=== PATIENT | female | born 1955 | race Caucasian/White ===

== ENCOUNTER 2017-07-25 12:24 | Emergency (ER) | payer BC, OTHER ==
[~2017-07-25] VITALS: Ht 172.7 cm; Wt 67.0 kg
[~2017-07-25 12:24] MED LIST: PROG1CAP PO; [UNRECOGNIZED DRUG - CODE] PO
[2017-07-25 12:31] VITALS: TEMP 36.7; Ht 172.7 cm; Wt 67.0 kg
[2017-07-25] MEDS ORDERED: SODIUM CHLORIDE 0.9% 1000ML 1,000 ML IV STA ×2 (14:22→19:39)
[2017-07-25] MEDS ORDERED: ALBUT/IPRATROP 3MG/0.5MG NEB 3 ML VIAL INH STA (14:22)
[2017-07-25] MEDS ORDERED: OPTIRAY 320 IV PRN (14:45)
--- NOTE | 2017-07-25 14:47 | DIAGNOSTIC IMAGING REPORT ---
CHEST ONE VIEW PORTABLE HISTORY: Atypical CHEST PAIN COMPARISON: Chest 04/19/2013. FINDINGS: The lungs are clear. Cardiac silhouette is normal in size. No pleural effusions. No pneumothorax. IMPRESSION: No acute process. Electronically signed by: Brigido Dumas M.D. 07/25/2017 2:45 PM Dictated Date/Time: 07/25/2017 2:43 PM
[2017-07-25 14:48] LABS: BASO % 0.5 %; BASO ABS # 0.03 K/uL (0-0.2); EOS % 3.9 %; EOS ABS # 0.22 K/uL (0-0.5); HEMATOCRIT 41.6 % (37-47); HEMOGLOBIN 14.5 g/dL (12.0-16.0); IG# 0.01 K/uL (0.00-0.02); LYMPH % 34.4 %; LYMPH ABS # 1.92 K/uL (1.2-3.4); MEAN CELL VOLUME 85.1 fL (80-100); MEAN CORPUSCULAR HEMOGLOBIN 29.7 pg (25-34); MEAN CORPUSCULAR HGB CONC 34.9 g/dl (32-36); MEAN PLATELET VOLUME 9.1 fL (7.4-10.4); MONO % 7.2 %; NEUT % 53.8 %; PLATELET COUNT 248 K/uL (130-400); RED CELL DISTRIBUTION WIDTH CV 12.9 % (11.5-14.5); WHITE BLOOD COUNT 5.58 K/uL (4.8-10.8)
[2017-07-25 14:58] LABS: ALT/SGPT 26 U/L (12-78); BLOOD UREA NITROGEN 11 mg/dl (7-18); CALCIUM 9.3 mg/dl (8.5-10.1); CARBON DIOXIDE 26 mmol/L (21-32); CREATININE 0.64 mg/dl (0.60-1.20); GLUCOSE 77 mg/dl (70-99); LIPASE 258 U/L (73-393); POTASSIUM 3.7 mmol/L (3.5-5.1); SODIUM 137 mmol/L (136-145)
[2017-07-25 15:03] LABS: ALKALINE PHOSPHATASE 75 U/L (45-117); AST/SGOT 19 U/L (15-37); TOTAL PROTEIN 8.1 gm/dl (6.4-8.2)
[2017-07-25] MEDS ORDERED: [UNRECOGNIZED DRUG - CODE] PO (15:12)
[2017-07-25 15:35] LABS: INFLUENZA B ANTIGEN Neg for Influ B (NEG)
--- NOTE | 2017-07-25 16:52 | DIAGNOSTIC IMAGING REPORT ---
HEAD CT NONCONTRAST CT DOSE: 537.48 mGy.cm HISTORY: confusion TECHNIQUE: Multiaxial CT images of the head were performed without the use of intravenous contrast. Automated exposure control was utilized for this study. A dose lowering technique was utilized adhering to the principles of ALARA. Comparison: Head CTA 05/08/2014. Findings: The paranasal sinuses and mastoid air cells are clear. The calvarium and skull base are intact. The ventricles and sulci are within normal limits. There is no mass, hematoma, midline shift, or acute infarct. Impression: No acute intracranial abnormality. Electronically signed by: Brigido Dumas M.D. 07/25/2017 4:51 PM Dictated Date/Time: 07/25/2017 4:47 PM
--- NOTE | 2017-07-25 20:05 | DIAGNOSTIC IMAGING REPORT ---
CT ANGIOGRAPHY OF THE CHEST, PULMONARY EMBOLUS PROTOCOL CLINICAL HISTORY: Chest pain. Shortness of breath. COMPARISON STUDY: Chest radiograph April 19, 2013 and 2017. TECHNIQUE: Following IV administration of 93 mL of Optiray-320, helical axial images of the chest were obtained utilizing the pulmonary embolus protocol. Maximal intensity projections and sagittal and coronal reformats were viewed on an independent 3D workstation. IV contrast was administered without complication. A dose lowering technique was utilized adhering to the principles of ALARA. CT DOSE: 210.31 mGy.cm FINDINGS: No pulmonary emboli are identified. There is no evidence of thoracic aortic dissection. The size of the heart is normal. There is no pericardial effusion. No enlarged axillary, mediastinal or hilar lymph nodes. Central airways are patent. There is no consolidation to suggest pneumonia. There is no pneumothorax or pleural effusion. Mild right middle lobe and lingular opacity represents atelectasis. Bony thorax is unremarkable. A 1 cm left hepatic lobe cyst is noted. IMPRESSION: 1. No pulmonary emboli identified. 2. No acute intrathoracic findings. Electronically signed by: Pool Berry M.D. 07/25/2017 7:17 PM Dictated Date/Time: 07/25/2017 7:11 PM
--- NOTE | 2017-07-25 20:27 | EMERGENCY ROOM VISIT NOTE ---
History Report prepared by Breanne: Meghan Kelsey Under the Supervision of: Dr. Fabián Cespedes M.D. First contact with patient: 14:19 Chief Complaint: CHEST PAIN Stated Complaint: CHEST PRESSURE, BREATHING DIFFICULTY Nursing Triage Summary: triage note: pt reports she has had a chronic cough for the past 1.5 years. pt reports intermittent chest pain also for the past 1.5 years. pt reports difficulty breathing for the past several days "and i started to have an unusual feeling my chest." pt reports today at work she had episode of feeling dizzy and disoriented. History of Present Illness The patient is a 62 year old female who presents to the Emergency Room with complaints of persistent chest pain starting a few weeks ago. She describes the pain as a pressure located in the center of her chest. She has had this pressure before, but it has worsened since starting an antibiotic several weeks ago for her lung disease. Last night, she had an episode of palpitations. She decided to come in today because she started feeling disoriented. She notes feeling anxious. Her notes that she is speaking slowly. She has had SOB with her chest pain. Her chest pain goes through to her back. She has had a chronic cough for 1.5 years. Her cough has improved since starting the antibiotics. She has a history of leukemia. Source of History: patient, spouse/significant other Onset: few weeks ago Position: chest Quality: pressure Timing: other (persistent) Associated Symptoms: + SOB, + back pain Note: Pt reports palpitations, feeling disoriented. Review of Systems See HPI for pertinent positives and negatives. A total of ten systems were reviewed and were otherwise negative. Past Medical & Surgical Medical Problems: (1) Hypertension Family History Hypertension Social History Smoking Status: Never Smoker Alcohol Use: none Drug Use: none Marital Status: Housing Status: lives with family Occupation Status: employed Current/Historical Medications Scheduled Liothyronine (Bulk) (Liothyronine), 65 MCG PO QAM Progesterone Micronized (Progesterone), 50 MG PO BID Allergies Coded Allergies: Penicillins (Verified Allergy, Severe, SWELLING, 07/25/17) Ciprofloxacin (Verified Allergy, Intermediate, CHEST TIGHTNESS, 07/25/17) Gluten (Unverified Adverse Reaction, Intermediate, BLOATING, FATIGUE, 07/25) Physical Exam Vital Signs Date Time Temp Pulse Resp B/P (MAP) Pulse Ox O2 Delivery O2 Flow Rate FiO2 2/16/18 21:29 71 18 151/74 96 07/25/17 18:58 71 07/25/17 18:38 75 18 165/84 97 Room Air 07/25/17 15:47 73 18 144/88 96 Room Air 07/25/17 14:14 66 20 193/105 100 Room Air 07/25/17 14:14 Room Air 07/25/17 14:12 65 07/25/17 12:31 36.7 72 18 195/102 98 Room Air Physical Exam GENERAL: Awake, alert, fatigued-appearing, in no distress HENT: Normocephalic, atraumatic. Dry mucous membranes. Oropharynx unremarkable. EYES: Normal conjunctiva. Sclera non-icteric. NECK: Supple. No nuchal rigidity. FROM. No JVD. RESPIRATORY: Diminished breath sounds at the bases. CARDIAC: Regular rate, normal rhythm. Extremities warm and well perfused. Pulses equal. ABDOMEN: Soft, non-distended. No tenderness to palpation. No rebound or guarding. No masses. RECTAL: Deferred. MUSCULOSKELETAL: Chest examination reveals no tenderness. The back is symmetrical on inspection without obvious abnormality. There is no CVA tenderness to palpation. No joint edema. LOWER EXTREMITIES: Calves are equal size bilaterally and non-tender. No edema. No discoloration. NEURO: Normal sensorium. 4/5 strength throughout her entire body, otherwise no sensory or motor deficits noted. SKIN: No rash or jaundice noted. Medical Decision & Procedures ER Provider Diagnostic Interpretation: Xray results as stated below per my and radiologist interpretation. Radiology results as stated below per my review and radiologist interpretation: CHEST ONE VIEW PORTABLE HISTORY: Atypical CHEST PAIN COMPARISON: Chest 04/19/2013. FINDINGS: The lungs are clear. Cardiac silhouette is normal in size. No pleural effusions. No pneumothorax. IMPRESSION: No acute process. Electronically signed by: Brigido Dumas M.D. 07/25/2017 2:45 PM Dictated Date/Time: 07/25/2017 2:[address] ANGIOGRAPHY OF THE CHEST, PULMONARY EMBOLUS PROTOCOL CLINICAL HISTORY: Chest pain. Shortness of breath. COMPARISON STUDY: Chest radiograph April 19, 2013 and 2017. TECHNIQUE: Following IV administration of 93 mL of Optiray-320, helical axial images of the chest were obtained utilizing the pulmonary embolus protocol. Maximal intensity projections and sagittal and coronal reformats were viewed on an independent 3D workstation. IV contrast was administered without complication. A dose lowering technique was utilized adhering to the principles of ALARA. CT DOSE: 210.31 mGy.cm FINDINGS: No pulmonary emboli are identified. There is no evidence of thoracic aortic dissection. The size of the heart is normal. There is no pericardial effusion. No enlarged axillary, mediastinal or hilar lymph nodes. Central airways are patent. There is no consolidation to suggest pneumonia. There is no pneumothorax or pleural effusion. Mild right middle lobe and lingular opacity represents atelectasis. Bony thorax is unremarkable. A 1 cm left hepatic lobe cyst is noted. IMPRESSION: 1. No pulmonary emboli identified. 2. No acute intrathoracic findings. Electronically signed by: Pool Berry M.D. 07/25/2017 7:17 PM Dictated Date/Time: 07/25/2017 7:[address] DOSE: 537.48 mGy.cm HISTORY: confusion TECHNIQUE: Multiaxial CT images of the head were performed without the use of intravenous contrast. Automated exposure control was utilized for this study. A dose lowering technique was utilized adhering to the principles of ALARA. Comparison: Head CTA 05/08/2014. Findings: The paranasal sinuses and mastoid air cells are clear. The calvarium and skull base are intact. The ventricles and sulci are within normal limits. There is no mass, hematoma, midline shift, or acute infarct. Impression: No acute intracranial abnormality. Electronically signed by: Brigido Dumas M.D. 07/25/2017 4:51 PM Dictated Date/Time: 07/25/2017 4:47 PM Laboratory Results 07/25/17 14:16 Red Blood Count 4.89, Mean Corpuscular Volume 85.1, Mean Corpuscular Hemoglobin 29.7, Mean Corpuscular Hemoglobin Concent 34.9, Mean Platelet Volume 9.1, Neutrophils (%) (Auto) 53.8, Lymphocytes (%) (Auto) 34.4, Monocytes (%) (Auto) 7.2, Eosinophils (%) (Auto) 3.9, Basophils (%) (Auto) 0.5, Neutrophils # (Auto) 3.00, Lymphocytes # (Auto) 1.92, Monocytes # (Auto) 0.40, Eosinophils # (Auto) 0.22, Basophils # (Auto) 0.03 07/25/17 14:16 Test 07/25/17 14:16 07/25/17 14:35 White Blood Count 5.58 K/uL (4.8-10.8) Red Blood Count 4.89 M/uL (4.2-5.4) Hemoglobin 14.5 g/dL (12.0-16.0) Hematocrit 41.6 % (37-47) Mean Corpuscular Volume 85.1 fL (80-100) Mean Corpuscular Hemoglobin 29.7 pg (25-34) Mean Corpuscular Hemoglobin Concent 34.9 g/dl (32-36) Platelet Count 248 K/uL (130-400) Mean Platelet Volume 9.1 fL (7.4-10.4) Neutrophils (%) (Auto) 53.8 % Lymphocytes (%) (Auto) 34.4 % Monocytes (%) (Auto) 7.2 % Eosinophils (%) (Auto) 3.9 % Basophils (%) (Auto) 0.5 % Neutrophils # (Auto) 3.00 K/uL (1.4-6.5) Lymphocytes # (Auto) 1.92 K/uL (1.2-3.4) Monocytes # (Auto) 0.40 K/uL (0.11-0.59) Eosinophils # (Auto) 0.22 K/uL (0-0.5) Basophils # (Auto) 0.03 K/uL (0-0.2) RDW Standard Deviation 40.0 fL (36.4-46.3) RDW Coefficient of Variation 12.9 % (11.5-14.5) Immature Granulocyte % (Auto) 0.2 % Immature Granulocyte # (Auto) 0.01 K/uL (0.00-0.02) Anion Gap 8.0 mmol/L (3-11) Est Creatinine Clear Calc Drug Dose 94.3 ml/min Estimated GFR () 112.4 Estimated GFR (Non- 97.0 BUN/Creatinine Ratio 16.6 (10-20) Calcium Level 9.3 mg/dl (8.5-10.1) Total Bilirubin 0.2 mg/dl (0.2-1) Direct Bilirubin < 0.1 mg/dl (0-0.2) Aspartate Amino Transf (AST/SGOT) 19 U/L (15-37) Alanine Aminotransferase (ALT/SGPT) 26 U/L (12-78) Alkaline Phosphatase 75 U/L (45-117) Troponin I < 0.015 ng/ml (0-0.045) Pro-B-Type Natriuretic Peptide 130 pg/ml (0-900) Total Protein 8.1 gm/dl (6.4-8.2) Albumin 4.0 gm/dl (3.4-5.0) Lipase 258 U/L (73-393) Thyroid Stimulating Hormone (TSH) 0.451 uIu/ml (0.300-4.500) Influenza Type A Antigen Neg for Influ A (NEG) Influenza Type B Antigen Neg for Influ B (NEG) Laboratory results reviewed by me Medications Administered Medications (Trade) Dose Ordered Sig/Az Route Start Time Stop Time Status Last Admin Dose Admin Sodium Chloride 1,000 ml @ 999 mls/hr Q1H1M STAT IV 07/25/17 14:22 07/25/17 15:22 DC 07/25/17 14:22 999 MLS/HR Albuterol/ Ipratropium (Duoneb) 3 ml NOW STAT INH 07/25/17 14:22 07/25/17 14:31 DC 07/25/17 14:39 3 ML Sodium Chloride 1,000 ml @ 999 mls/hr Q1H1M STAT IV 07/25/17 19:39 07/25/17 20:39 DC 07/25/17 20:31 999 MLS/HR Albuterol (Ventolin Hfa Inhaler) 2 puffs NOW ONCE INH 07/25/17 21:00 07/25/17 21:01 DC 07/25/17 21:22 60 PUFFS ECG Per My Interpretation Indication: chest pain Rate (beats per minute): 65 Rhythm: sinus rhythm Findings: PAC, no acute ischemic change, other (normal axis) ED Course 0: The patient was evaluated in room C7. A complete history and physical exam was performed. 1717: I reevaluated the patient. I updated her on the results. 2032: I discussed the patient's case with Dr. Peña, [facility] pulmonology. He states there is no need for repeat antibiotics or steroids and agrees with an albuterol inhaler. 2050: I reevaluated the patient. Discussed results and discharge instructions: She verbalized understanding and agreement. The patient is ready for discharge. Medical Decision I reviewed the patient's past medical history, medications, and the nursing notes as described above. Differential diagnosis: Etiologies such as cardiac ischemia, aortic dissection, pulmonary embolism, pneumonia, pneumothorax, musculoskeletal, infections, pericarditis, myocarditis , esophageal rupture, gastrointestinal, as well as others were entertained. The patient is a 62-year-old woman with a past medical history of bronchiectasis and pseudomonas colonization followed by pulmonology who presents emergency Department with worsening chest pain with radiation to her back and dyspnea in the setting of recently finishing a course of Levaquin. Patient is in no acute distress, afebrile stable vital signs. Chest x-ray unremarkable. Labs unremarkable including WBC and troponin within normal limits. Patient had significantly difficulty obtaining IV access despite multiple attempts including IV team and ultrasound guidance but was ultimately obtained. CT PE demonstrates "mild right middle lobe and lingular opacity represents atelectasis" which is similar to the patient's prior CT scan from [facility] from March 2017. Labs unremarkable including WBC and troponin wnl. Patient feeling improved with IVF and neb. Case d/w with Dr. Peña [facility] pulmonolgy on-call from patient's clinical safety specialist, Dr. Mata who agrees that given stable findings and proven in the patient's cough no need to repeat course of antibiotics. Agrees with giving the patient albuterol for possible bronchospasm and mucous plugging but no need for steroids at this time. The patient will follow-up with Dr. Mata early next week. Otherwise, given the patient's profound generalized weakness a CT head was done and negative. The patient's bilateral and generalized symptoms are not consistent with CVA and thus not further imaging indicated at this time. Additionally the patient improved substantially with IV fluid suggesting likely dehydration. Findings and plan for follow-up reviewed with patient. Patient agreeable and d/c'd per discharge instructions. Medication Reconcilliation Current Medication List: was personally reviewed by me Blood Pressure Screening Patient's blood pressure: Elevated blood pressure Blood pressure disposition: Referred to PCP Consults Time Called: 2020 Consulting Physician: Dr. Peña [facility] pulmonology Returned Call: 2032 I discussed the patient's case with him. He states there is no need for repeat antibiotics or steroids and agrees with an albuterol inhaler. Impression Primary Impression: Generalized weakness Additional Impressions: Dyspnea, unspecified Bronchiectasis Scribe Attestation The scribe's documentation has been prepared under my direction and personally reviewed by me in its entirety. I confirm that the note above accurately reflects all work, treatment, procedures, and medical decision making performed by me. Departure Information Dispostion Home / Self-Care Referrals Maritza Plummer M.D. (PCP) Patient Instructions Bronchiectasis About, Bronchiectasis Dc, ED Dehydration, ED Weakness [facility], My [facility] Additional Instructions Please follow up with your clinical safety specialist in the next 1-3 days for re-evaluation. The cause of your symptoms is unclear at this time but may be due to mild dehydration in the setting of your bronchiectasis. Otherwise, your exam, EKG, chest xray, lab results, and CT scan of your chest did not show signs of an emergent condition at this time. Acetaminophen or ibuprofen for pain and fevers as needed. Albuterol inhaler 2 puffs every 4 hours for the next 48 hours and then as needed thereafter. Drink plenty of fluids to ensure hydration. Return to the emergency department for worsening symptoms as described in the accompanying instructions. Problem Qualifiers
[2017-07-25] MEDS ORDERED: ALBUTEROL HFA 8 GM INHALER INH ONE (21:00)
[2017-07-25 21:29] VITALS: BP 151/74; PULSE 71; O2SAT 96
== END 2017-07-25 21:31 | disposition home or self-care (01) ==
LOC: C.EDB 12:27 → C.EDC 21:31
DX: R07.9 Chest pain, unspecified (principal); R06.00 Dyspnea, unspecified; R53.1 Weakness; J47.9 Bronchiectasis, uncomplicated; I10 Essential (primary) hypertension; Z85.6 Personal history of leukemia; Z88.0 Allergy status to penicillin; Z88.1 Allergy status to other antibiotic agents; Z91.018 Allergy to other foods; Z82.49 Family history of ischemic heart disease and other diseases of the circulatory system

== ENCOUNTER 2018-02-01 11:28 | Emergency (ER) | payer OTHER ==
[~2018-02-01] VITALS: Ht 170.2 cm; Wt 70.8 kg
[2018-02-01 11:35] VITALS: TEMP 36.5; Ht 170.2 cm; Wt 70.8 kg
[2018-02-01] MEDS ORDERED: SODIUM CHLORIDE 0.9% 1000ML 1,000 ML IV STA (12:08)
[2018-02-01] MEDS ORDERED: LORAZEPAM 0.5 MG TAB SL STA (12:11)
[2018-02-01] MEDS ORDERED: ONDANSETRON INJ 2 MG/ML 2 ML VIAL IV STA (12:38)
[2018-02-01] MEDS: MoRPHine SULFATE 4 MG/ML 1 ML CARP\\VIAL IV PRN ×2 (12:44→14:57)
[2018-02-01 12:50] LABS: BASO % 0.2 %; BASO ABS # 0.01 K/uL (0-0.2); EOS % 0.3 %; EOS ABS # 0.02 K/uL (0-0.5); HEMATOCRIT 41.2 % (37-47); HEMOGLOBIN 14.2 g/dL (12.0-16.0); IG# 0.02 K/uL (0.00-0.02); LYMPH ABS # 0.59 K/uL (1.2-3.4); MEAN CELL VOLUME 85.3 fL (80-100); MEAN CORPUSCULAR HEMOGLOBIN 29.4 pg (25-34); MEAN CORPUSCULAR HGB CONC 34.5 g/dl (32-36); MEAN PLATELET VOLUME 9.6 fL (7.4-10.4); MONO % 3.2 %; MONO ABS # 0.19 K/uL (0.11-0.59); NEUT ABS # 5.05 K/uL (1.4-6.5); PLATELET COUNT 209 K/uL (130-400); RED CELL DISTRIBUTION WIDTH CV 12.6 % (11.5-14.5); RED CELL DISTRIBUTION WIDTH SD 39.4 fL (36.4-46.3); WHITE BLOOD COUNT 5.88 K/uL (4.8-10.8)
--- NOTE | 2018-02-01 12:57 | DIAGNOSTIC IMAGING REPORT ---
CHEST ONE VIEW PORTABLE HISTORY: 63 years-old Female EVALUATE ALTERED MENTAL STATUS/WEAKNESS acute weakness with altered mental status COMPARISON: Chest radiograph and CTA chest 07/25/2017 TECHNIQUE: Portable AP view of the chest FINDINGS: Cardiomediastinal and hilar silhouettes are within normal limits. No pneumothorax, pleural effusion, focal airspace consolidation or overt pulmonary edema. Bones of the chest appear grossly intact. IMPRESSION: No acute process. The above report was generated using voice recognition software. It may contain grammatical, syntax or spelling errors. Electronically signed by: Lito Zimmerman M.D. 02/01/2018 12:56 PM Dictated Date/Time: 02/01/2018 12:54 PM
[2018-02-01 13:16] LABS: ALBUMIN 4.2 gm/dl (3.4-5.0); ALKALINE PHOSPHATASE 69 U/L (45-117); ALT/SGPT 53 U/L (12-78); AST/SGOT 35 U/L (15-37); BLOOD UREA NITROGEN 10 mg/dl (7-18); CALCIUM 8.7 mg/dl (8.5-10.1); CARBON DIOXIDE 24 mmol/L (21-32); CKMB 2.7 ng/ml (0.5-3.6); CREATININE 0.78 mg/dl (0.60-1.20); GLUCOSE 107 mg/dl (70-99); LIPASE 154 U/L (73-393); POTASSIUM 3.8 mmol/L (3.5-5.1); SODIUM 139 mmol/L (136-145); TOTAL PROTEIN 8.6 gm/dl (6.4-8.2)
--- NOTE | 2018-02-01 13:24 | DIAGNOSTIC IMAGING REPORT ---
HEAD WITHOUT CONTRAST (CT) CLINICAL HISTORY: 63 years-old Female with EVALUATE ALTERED MENTAL STATUS/WEAKNESS. Acutely altered mental status with weakness TECHNIQUE: Multiple axial CT images of the head were obtained without contrast. A dose lowering technique was utilized adhering to the principles of ALARA. CT DOSE: 537.48 mGy.cm COMPARISON: CT head 07/25/2017 FINDINGS: No acute intracranial hemorrhage, midline shift, intracranial mass, hydrocephalus, territorial ischemia or abnormal extra-axial collection. The calvarium is intact. The paranasal sinuses, mastoid air cells, and middle ear cavities are clear. IMPRESSION: No acute intracranial abnormality. The above report was generated using voice recognition software. It may contain grammatical, syntax or spelling errors. Electronically signed by: Lito Zimmerman M.D. 02/01/2018 1:23 PM Dictated Date/Time: 02/01/2018 1:21 PM
[2018-02-01] MEDS ORDERED: PROCHLORPERAZINE 5 MG/ML 2 ML VIAL IV STA (13:34)
[2018-02-01 13:37] VITALS: BP 188/93; PULSE 65; O2SAT 100
[2018-02-01] MEDS ORDERED: IBUP-103 PO (13:51)
[2018-02-01] MEDS ORDERED: ONDA4TAB10 SL (14:21)
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
== END 2018-02-01 14:58 | disposition home or self-care (01) ==
LOC: C.EDB 11:29 → C.EDA 14:58
DX: R51 Headache (principal); R11.2 Nausea with vomiting, unspecified; I10 Essential (primary) hypertension; Z88.1 Allergy status to other antibiotic agents; Z88.0 Allergy status to penicillin; Z91.018 Allergy to other foods

== ENCOUNTER 2023-08-29 10:02 | Inpatient (IN) ==
[2023-08-29] MEDS: LABETALOL HCL IV 5 MG/ML 20ML IV STA (11:11)
[2023-08-29] MEDS: ONDANSETRON INJ 2 MG/ML 2 ML VIAL IV STA ×2 (11:11→13:49)
[2023-08-29 11:14] LABS: Hematocrit (blood only) 41.4 % (37.0-47.0); Hemoglobin 14.1 g/dl (12.0-16.0); Mean Corpuscular Hemoglobin 30.1 pg (25.0-34.0); Mean Corpuscular Hgb Conc 34.1 g/dL (32.0-36.0); Mean Corpuscular Volume 88.5 fL (80.0-100.0); Mean Platelet Volume 9.1 fL (9.4-12.4); Platelet Count 188 K/uL (130-400); RDW Coefficient of Variation 12.5 % (11.5-14.5); RDW Standard Deviation 40.7 fL (36.4-46.3); Red Blood Count 4.68 M/uL (4.20-5.40); White Blood Count 6.62 K/ul (4.8-10.8)
[2023-08-29 11:30] LABS: Albumin Globulin Ratio 1.3 (0.9-2); Albumin Level 4.9 gm/dl (3.4-5.0); BUN Creatinine Ratio 17.6 (10-20); Bilirubin,Total 0.8 mg/dl (0.2-1.0); Calcium 9.6 mg/dl (8.6-10.3); Creatinine Clr Calc Pharmacy 75.2 ml/min; Est GFR (African American) 105.6 ml/min; Est GFR (Non-African American) 91.2 ml/min; Globulin 3.7 gm/dl (2.5-4.0); Potassium 3.3 mmol/L (3.5-5.1); Total Protein 8.6 gm/dl (6.0-8.3)
[2023-08-29] MEDS: PROCHLORPERAZINE 1 ML IV ONE (11:31)
[2023-08-29] MEDS: diphenhydrAMINE 50 MG/ML VIAL IV STA (11:31)
--- NOTE | 2023-08-29 11:37 | CT Scan Report ---
HEAD CT NONCONTRAST CT DOSE: 625.8 mGy.cm HISTORY: Headache TECHNIQUE: Multiaxial CT images of the head were performed without the use of intravenous contrast. A utomated exposure control was utilized for this study. A dose lowering technique was utilized adheri ng to the principles of ALARA. Comparison: Head CT 02/01/2018. Findings: The paranasal sinuses and mastoid air cells are clear. The calvarium and skull base are int act. The ventricles and sulci are within normal limits. There is no mass, hematoma, midline shift, or acute infarct. Impression: No acute intracranial abnormality. ACT 112: Negative or not required by law. Electronically signed by: Brigido Dumas M.D. 08/29/2023 11:35 AM
[2023-08-29 11:43] LABS: Basophils # (auto) 0.02 K/uL (0.00-0.20); Basophils % (auto) 0.3 %; Immature Granulocytes # (auto) 0.02 K/uL (0.01-0.20); Immature Granulocytes % (auto) 0.3 %; Lymphocytes # (auto) 0.28 K/uL (1.20-3.40); Lymphocytes % (auto) 4.2 %; Monocytes # (auto) 0.13 K/uL (0.11-0.59); Neutrophils # (auto) 6.17 K/uL (1.40-6.50); Neutrophils % (auto) 93.2 %
[2023-08-29] MEDS: hydrALAZINE HCL 20 MG/ML VIAL IV STA ×2 (13:40→18:41)
[2023-08-29] MEDS: MoRPHine SULFATE 4 MG/ML 1 ML CARP\\VIAL IV STA (13:40)
[2023-08-29] MEDS: HYDROmorphone INJ 0.5 MG/0.5 ML SYR IV STA ×2 (13:56→21:39)
[2023-08-29 15:18] LABS: Magnesium 2.1 mg/dl (1.7-2.4)
[2023-08-29 15:26] LABS: Troponin I High Sensitivity 11.8 pg/ml (0-14)
--- NOTE | 2023-08-29 15:49 | History & Physical Report ---
Date of Service August 29, 2023 Assessment & Plan (1) Hypertensive urgency: (2) Abnormal EKG: (3) Headache: Plan: Patient is 68 year old female with PMH hairy cell leukemia in 2002 in remission, hypothyroidism, bronchiectasis, HTN, history migraine headache presented to ER with complaint of headache, nausea and elevated blood pressure x 1 day. In ER patient with BP 224/127, pulse 79 CT head: No acute intracranial findings CXR: No acute cardiopulmonary abnormality EKG sinus bradycardia, rate 57, T wave inversions anterior lateral and septal leads. No prior EKG available for review Initial troponin negative. In ER was given labetalol 10 mg IV, Benadryl 25 mg IV, prochlorperazine, zofran, morphine 4 mg IV, Dilaudid 0.5 mg IV, hydralazine 10 mg IV BP trended down to 158/92. Patient now reports headache 2 out of 10 from prior > 10/10 pain. Denies dizziness, syncope, chest pain, shortness of breath Patient with known untreated HTN prior to arrival Obtain UA to assess for protein Obtain TSH Monitor on telemetry Give dose of Procardia 30 mg now and start once daily Hold home Maxide that she had been using on a as needed basis. Will hold on further ALDO or ARB at this time as patient took 3 doses of Maxide within the last 24 hours. Currently renal functions stable, and will continue to monitor. Monitor BP, may need to add additional agents Trend troponin Obtain resting echo CBC, BMP, lipid panel, A1c in a.m. May need to consider cardiology consult (4) Hypokalemia: Plan: K: 3.3. Magnesium: 2.1 Replace and monitor (5) Hyperthyroidism: Plan: Continue liothyronine (6) Bronchiectasis: Plan: History of bronchiectasis. Patient denies fever, chills, any increased cough, shortness of breath Continue flutter valve (7) History of leukemia: Plan: Reports history hairy cell leukemia 2002 treated [place] country and at [facility] in [place] In remission DVT Prophylaxis Lovenox SQ Full Code as per discussion with patient and patient's daughter Does not follow with PCP locally. Follows with Dr Mary Traore in [place] for routine care Pt was seen and care coordinated with Dr Martel. See addendum I spent a total of 77 minutes reviewing notes, outpatient records, labs, medication, coordinating, documenting and providing care for this patient excluding time spent in the performance of separately billed services. History of Present Illness Chief Complaint: MCCORMICK, elevated blood pressure Primary Care Provider: NO PCP Patient is 68 year old female with PMH hairy cell leukemia in 2002 in remission, hypothyroidism, bronchiectasis, HTN, history migraine headache presented to ER with complaint of headache and elevated blood pressure x 1 day. History obtained from patient as well as patient's daughter. Patient states history of migraines since she was 17 years old. Reports will get generalized headache with associated nausea, vomiting and photophobia. Patient states typically gets a migraine headache once a month and typically just rests and headaches will eventually resolve without OTC or Rx medication. She reports at least once weekly generalized headache that she does not feel is a migraine. Reports diagnosed with hypertension over 5 years ago. Was started on triamterene/HCTZ however patient states does not take and only takes when she feels her BP is elevated. Her prescription bottle is from 2020. Patient states when takes blood pressure at home it is usually 170s over 80s. Reports often will have headache, nausea, vomiting and then she will check her blood pressure and SBP's up to 200's and sometimes takes a triamterene/HCTZ. Patient states yesterday started w ith headache, nausea vomiting and she felt like her blood pressure was likely high. She reports taking her blood pressure at home and SBP's in the low 200s. She reports highest reading that she had was SBP of 240. Patient states she took 3 tablets of triamterene/HCTZ over the last 24 hours without relief. She states also reports some photophobia. Patient states she is unsure if headache is related to blood pressure and migraine at this time. She came to ER for further evaluation. Patient reports history of bronchiectasis and has chronic cough. She uses flutter valve daily. Patient denies any increased cough. Reports follows with Dr Mary Traore in [place] for "functional medicine" which patient explains is more homeopathic approach. Currently lives in [place], [place] but does not have PCP locally. Denies fever/chills, diaphoresis, hematemesis, melena, hematochezia, diarrhea, constipation, dizziness, syncope, vision changes, neck pain, CP, SOB, orthopnea, palpitations, sore throat, rhinorrhea, abdominal pain, paresthesias, weakness, extremity weakness, extremity edema, rashes, urinary symptoms. Allergies Allergy/AdvReac Type Severity Reaction Status Date / Time Penicillins Allergy Severe SWELLING Verified 08/29/23 15:33 Cipro Allergy Intermediate CHEST Verified 02/04/18 13:01 TIGHTNESS ciprofloxacin [Cipro] Allergy Intermediate CHEST Verified 08/29/23 15:33 TIGHTNESS levofloxacin Allergy Unknown HOSPITALIZE Unverified 08/29/23 15:33 D Sulfa (Sulfonamide Allergy Unknown vomiting, Unverified 08/29/23 15:33 Antibiotics) migraine gluten AdvReac Intermediate BLOATING, Unverified 08/29/23 15:33 FATIGUE Home Medications Medication Instructions Recorded Confirmed Type liothyronine 25 mcg tablet 20 mcg PO DAILY 08/29/23 08/29/23 History multivitamin 1 tab PO DAILY 08/29/23 08/29/23 History omega-3 fatty acids 1,000 mg 0 mg PO DAILY 08/29/23 08/29/23 History capsule potassium chloride 20 mEq oral 20 meq PO MOWEFR 08/29/23 08/29/23 History packet (Klor-Con) triamterene 37.5 1 tab PO DAILY PRN .High bp 08/29/23 08/29/23 History mg-hydrochlorothiazide 25 mg tablet vitamin B complex 1 tab PO DAILY 08/29/23 08/29/23 History Past Med/Surg History Medical History (Updated 08/29/23 @ 20:36 by Olimpia Martel DO) Hyperthyroidism History of leukemia Bronchiectasis Hypertension Surgical History History of abdominoplasty Family History Brother Heart disease fatal [place] age 56 Mother FH: brain aneurysm Hypertension Grandfather (Paternal) Heart disease Grandmother (Maternal) Hypertension Other Cancer Social History Smoking Status: Never smoker Second Hand Exposure: No; Do You Dip or Chew Tobacco: No; Hx Alcohol Use: No Hx Substance Use: No Preferred Language: Omani Communication Ability: Effective Railroad Repairer Required: No Beliefs That Will Affect Care: None Current Living Situation: Family Current Living Situation Comment: Living with daughter Feels Safe at Home: Yes Assistive Devices: Denture - Upper, Denture - Lower and Glasses Review of Systems Review of Systems: All systems reviewed & are unremarkable except as noted in HPI & below Physical Exam Physical Exam: General: no acute distress, is currently drowsy from meds received in ER, WDWN Head: normocephalic, atraumatic Eyes: PERRL, EOM's intact, conjunctiva non-injected, anicteric ENT: normal inspection external ears, nose, mucous membranes moist Neck: supple, trachea midline Lungs: clear, no respiratory distress, no wheezing/rhonchi/rales CV: RRR, no murmur, no pretibial edema Abd: normal BS, soft, non-tender Ext: no cyanosis, no calf tenderness Neuro: +drowsy and frequently falling asleep but awakens to voice and is oriented x 3, no focal deficits noted, normal affect Skin: warm, dry Results & Data Results & Data Vital Signs (Past 12 Hours) Vital Signs Temp Pulse Resp BP Pulse Ox O2 Del Method 08/29/23 15:02 65 08/29/23 14:30 158/92 H 08/29/23 14:30 62 19 94 08/29/23 14:15 69 17 167/92 H 94 08/29/23 14:00 186/103 H 08/29/23 13:45 63 21 203/107 H 95 08/29/23 13:30 60 21 210/105 H 96 08/29/23 13:15 208/110 H 08/29/23 13:15 66 16 208/110 H 97 08/29/23 13:01 72 14 202/104 H 96 08/29/23 12:45 73 22 200/115 H 97 08/29/23 12:30 199/113 H 08/29/23 12:30 65 19 96 08/29/23 12:15 203/113 H 08/29/23 12:15 61 15 94 08/29/23 12:00 200/113 H 08/29/23 12:00 65 16 95 08/29/23 11:30 65 20 93 08/29/23 11:15 213/111 H 08/29/23 11:15 59 L 18 95 08/29/23 11:02 69 15 97 08/29/23 11:02 229/122 H 08/29/23 11:00 71 17 08/29/23 10:52 79 08/29/23 10:41 75 14 08/29/23 10:20 36.5 C 79 18 224/127 H 97 Room Air Laboratory Results Short CBC 08/29/23 Range/Units 11:00 WBC 6.62 (4.8-10.8) K/ul Hgb 14.1 (12.0-16.0) g/dl Hct 41.4 (37.0-47.0) % Plt Count 188 (130-400) K/uL BMP 08/29/23 11:00 Sodium 133 L Potassium 3.3 L Chloride 98 Carbon Dioxide 24 BUN 12 Creatinine 0.68 Glucose 134 H Calcium 9.6 Liver Function 08/29/23 Range/Units 11:00 Total Bilirubin 0.8 (0.2-1.0) mg/dl AST 28 (13-39) U/L ALT 15 (7-52) U/L Alkaline Phosphatase 68 (34-104) U/L Albumin 4.9 (3.4-5.0) gm/dl Diagnostic Findings Head CT 08/29/23 10:[address] DOSE: 625.8 mGy.cm HISTORY: Headache TECHNIQUE: Multiaxial CT images of the head were performed without the use of intravenous contrast. Automated exposure control was utilized for this study. A dose lowering technique was utilized adhering to the principles of ALARA. Comparison: Head CT 02/01/2018. Findings: The paranasal sinuses and mastoid air cells are clear. The calvarium and skull base are intact. The ventricles and sulci are within normal limits. There is no mass, hematoma, midline shift, or acute infarct. Impression: No acute intracranial abnormality. ACT 112: Negative or not required by law. Electronically signed by: Brigido Dumas M.D. 08/29/2023 11:35 AM Chest X-Ray 08/29/23 15:58 SINGLE VIEW CHEST CLINICAL HISTORY: Hypertension FINDINGS: An AP, portable, upright chest radiograph is compared to study dated 02/04/2018 and correlated with chest CT dated 07/25/2017. The examination is degraded by portable technique and patient rotation. The cardiomediastinal silhouette is unremarkable noting atherosclerotic calcification of the thoracic aorta. Chronic interstitial thickening is similar to previous. There is bibasilar scarring/atelectasis. No airspace consolidation or large pleural effusion is identified The lungs and pleural spaces are clear. No pneumothorax is seen. The skeletal structures are osteopenic. The bony thorax is grossly intact. IMPRESSION: No acute cardiopulmonary abnormality. ACT 112: Negative or not required by law. Electronically signed by: Jean Carlos Colunga M.D. 08/29/2023 4:09 PM Code Status & VTE Plan VTE Prophylaxis Plan VTE Prophylaxis will be ordered: Yes Supervising Physician Co-Signing Physician Notes I have seen and examined the patient and have discussed the case with the provider above. I have reviewed the advanced practitioner's documentation, and I agree with, and take responsibility for that plan of care. 68-year-old female with longstanding hypertension and history of migraines presents with headache and elevated blood pressure of 229/122. She was treated for headache in the ER and was given parenteral antihypertensives with improvement in her blood pressure. Her headache is consistent with previous migraines and has now returned when she is back up on the floor and she is having associated vomiting from the pain. Blood pressure then went up over 200. She was started on oral nifedipine and given additional hydralazine IV with improvement in her blood pressure to 162/73. The patient is significantly Ms. educated about how to use Maxide or other antihypertensives that she was using this on an as-needed basis. She reports trying to stick to a low-salt diet but is having difficulty giving a history as she is reporting some confusion and sleepiness as a result of the Benadryl and other medications given to her today. Her daughter is providing some of the history. Daughter reports that she has suffered side effects from other medications including an antibiotic 5 years ago which they feel may have contributed to her ongoing hypertension. Patient reports elevated blood pressure readings at home as noted above and takes as needed Maxide. She was counseled on the risks of long-term uncontrolled high blood pressure. On physical exam patient appears in no acute distress and is lying mostly with her eyes closed. She is able to awaken and give answers to questions but sometimes keeps her eyes closed and reports not knowing the answer. No carotid or abdominal bruits are present. Cardiology exam reveals S1-S2 heard with no murmurs gallops or rubs and regular rate and rhythm. She has no peripheral edema. Peripheral pulses are 2+ bilaterally. Lungs are clear to auscultation bilaterally and abdomen is soft nontender nondistended. She has no gross focal neuromuscular deficits. Workup includes an normal CBC and BMP with evidence of mild dehydration with a sodium of 133 potassium 3.3. Although her total protein is 8.6 this is no different than 2018 and she does not have a significant globulin gap. TFTs are unremarkable chest x-ray and head CT are clear. EKG does show some concerning changes including T wave inversions in contiguous leads including inferior and anterolateral distributions. Repeat EKG daily, echocardiogram ordered. Cardiology also consulted for assistance with management of blood pressure and review of EKG findings. Highly sensitive troponin is negative as noted above. Hypertensive urgency secondary to noncompliance and longstanding hypertension. Reeducation efforts will be important here. She was advised that at least 1 or possibly 2 oral antihypertensives should be taken daily with close follow-up with her primary care doctor. She was counseled on the longstanding side effects of uncontrolled hypertension. She verbalized understanding with intent to comply. She was counseled on low-salt diet. Continued efforts of blood pressure management with parenteral therapies such as hydralazine are improving her blood pressure. Oral nifedipine 30 mg daily was started this evening. Defer to cardiology for additional titration of medications and assistance. Patient is requesting a bag of IV fluids to help with her migraine which was given. Continue supportive care for her migraine overnight. EKG changes are concerning however patient exhibits no signs or symptoms of ACS and troponin is negative. She has no reports of chest pain. Suspect T wave inversions are likely secondary to LVH, echocardiogram pending. DO [place]
--- NOTE | 2023-08-29 16:10 | XRay Report ---
SINGLE VIEW CHEST CLINICAL HISTORY: Hypertension FINDINGS: An AP, portable, upright chest radiograph is compared to study dated 02/04/2018 and correlat ed with chest CT dated 07/25/2017. The examination is degraded by portable technique and patient rotat ion. The cardiomediastinal silhouette is unremarkable noting atherosclerotic calcification of the tho racic aorta. Chronic interstitial thickening is similar to previous. There is bibasilar scarring/atel ectasis. No airspace consolidation or large pleural effusion is identified The lungs and pleural spac es are clear. No pneumothorax is seen. The skeletal structures are osteopenic. The bony thorax is jatinder ssly intact. IMPRESSION: No acute cardiopulmonary abnormality. ACT 112: Negative or not required by law. Electronically signed by: Jean Carlos Colunga M.D. 08/29/2023 4:09 PM
[2023-08-29] MEDS: NIFEdipine EXTENDED REL 30 MG TABCR PO STA (16:38)
[2023-08-29 17:08] LABS: Thyroid Stimulating Hormone 3.409 uIu/ml (0.300-4.500)
[2023-08-29] MEDS ORDERED: POLYETHYLENE (MIRALAX) 17 GM PACK PO PRN (17:37)
--- NOTE | 2023-08-29 17:41 | Electrocardiogram Report ---
Test Reason : Blood Pressure : / mmHG Vent. Rate : 057 BPM Atrial Rate : 057 BPM P-R Int : 144 ms QRS Dur : 094 ms QT Int : 458 ms P-R-T Axes : 071 048 -79 degrees QTc Int : 445 ms Sinus bradycardia with sinus arrhythmia Minimal voltage criteria for LVH, may be normal variant Abnormal ECG When compared with ECG of 29-AUG-2023 10:34, (unconfirmed) T wave inversion now evident in Anterior leads Confirmed by Milton Lozada ([id number]) on 08/29/2023 5:40:56 PM Referred By: REFERRED SELF Confirmed By:Tucker Lozada
[2023-08-29] MEDS: POTASSIUM CHLORIDE CRTAB 20 MEQ TABCR PO STA (17:54)
[2023-08-29] MEDS: ENOXAPARIN INJ 40 MG/0.4 ML SYR SQ SCH (18:32)
[2023-08-29] MEDS: ONDANSETRON INJ 2 MG/ML 2 ML VIAL IV PRN (20:15)
[2023-08-29] MEDS: SODIUM CHLORIDE 0.45 % 1,000 ML IV SCH (20:25)
[2023-08-29 22:33] LABS: Appearance Urine Clear (Clear); Bacteria Urine Automated Negative (Negative); Bilirubin Urine Negative (Negative); Blood Urine Negative (Negative); Color Urine Yellow; Epithelial Cell Urine Auto >30 /lpf (0-5); Glucose Urine UA Negative (Negative); Ketones Urine 2+ (Negative); Leukocyte Esterase Urine Negative (Negative); Nitrite Urine Negative (Negative); Protein Urine 3+ (Negative); RBC Urine Automated 0-4 /hpf (0-4); Specific Gravity Urine 1.019 (1.000-1.030); Urobilinogen Urine Negative (Negative); pH Urine 5.5 (4.5-7.5)
[2023-08-30 02:47] LABS: Hematocrit (blood only) 35.1 % (37.0-47.0); Hemoglobin 12.2 g/dl (12.0-16.0); Mean Corpuscular Hgb Conc 34.8 g/dL (32.0-36.0); Mean Corpuscular Volume 86.5 fL (80.0-100.0); Mean Platelet Volume 9.3 fL (9.4-12.4); Platelet Count 204 K/uL (130-400); RDW Coefficient of Variation 12.9 % (11.5-14.5); Red Blood Count 4.06 M/uL (4.20-5.40); White Blood Count 5.01 K/ul (4.8-10.8)
[2023-08-30 03:00] LABS: BUN Creatinine Ratio 24.1 (10-20); Chol HDL Ratio 2.9 (0-5); Est GFR (African American) 90.4 ml/min; Potassium 3.6 mmol/L (3.5-5.1)
[2023-08-30] MEDS: LIOTHYRONINE SODIUM 5 MCG TAB PO SCH (06:05)
[2023-08-30 08:21] LABS: Estimated Average Glucose 108 mg/dl; Hemoglobin A1C 5.4 % (4.5-5.6)
--- NOTE | 2023-08-30 08:48 | Electrocardiogram Report ---
Test Reason : Blood Pressure : / mmHG Vent. Rate : 068 BPM Atrial Rate : 068 BPM P-R Int : 140 ms QRS Dur : 090 ms QT Int : 432 ms P-R-T Axes : 079 053 -07 degrees QTc Int : 459 ms Normal sinus rhythm Left atrial enlargement Minimal voltage criteria for LVH, may be normal variant ( De Young product ) Diffuse Nonspecific ST and T wave abnormality Abnormal ECG When compared with ECG of 01-FEB-2018 12:53, Nonspecific ST and T wave abnormality now present Confirmed by Denis Peace ([id number]) on 08/30/2023 8:48:39 AM Referred By: REFERRED SELF Confirmed By:Denis Peace
[2023-08-30] MEDS: NIFEdipine EXTENDED REL 30 MG TABCR PO SCH (09:13)
[2023-08-30] MEDS: LOSARTAN POTASSIUM 25 MG TAB PO SCH (09:15)
--- NOTE | 2023-08-30 10:43 | Emergency Department Note ---
ED Provider Note CC: HPI: REVIEW OF SYSTEMS: A review of systems was performed with positives and pertinent negatives listed in the history of present illness. 10 systems were reviewed and are otherwise negative. ALLERGIES: see below MEDICATIONS: see below PMH: see below SOCIAL HISTORY: see below DDx: [] PHYSICAL EXAM: Vital signs reviewed. General: Well-appearing, in no significant distress. HEENT: No scleral icterus, PERRLA, neck supple. Atraumatic. Cardiovascular: Regular rate and rhythm, no extra sounds. Pulmonary: Clear to auscultation bilaterally, normal work of breathing. Abdomen: Soft, nontender, nondistended, positive bowel sounds. Musculoskeletal: Atraumatic, no peripheral edema. Neurologic: Patient awake alert and oriented x 3, speech is clear Skin: Warm, dry, no rash EMERGENCY DEPARTMENT COURSE/MDM: [] MONITORING: An order for cardiac monitoring was placed and the patient is noted to be in a [] at [] beats per minute. RADIOLOGY: EKG: DISPOSITION: Past Med/Surg History Medical History (Updated 08/29/23 @ 20:36 by Olimpia Martel DO) Hyperthyroidism History of leukemia Bronchiectasis Hypertension Surgical History History of abdominoplasty Family History Brother Heart disease fatal [place] age 56 Mother FH: brain aneurysm Hypertension Grandfather (Paternal) Heart disease Grandmother (Maternal) Hypertension Other Cancer Social History Smoking Status: Never smoker Second Hand Exposure: No; Do You Dip or Chew Tobacco: No; Hx Alcohol Use: No Hx Substance Use: No Preferred Language: Urdu Communication Ability: Effective Bi Tri Operator Required: No Beliefs That Will Affect Care: None Current Living Situation: Family Current Living Situation Comment: Living with daughter Feels Safe at Home: Yes Assistive Devices: Denture - Upper, Denture - Lower and Glasses Allergies Allergies Allergy/AdvReac Type Severity Reaction Status Date / Time Penicillins Allergy Severe SWELLING Verified 08/29/23 15:33 Cipro Allergy Intermediate CHEST Verified 02/04/18 13:01 TIGHTNESS ciprofloxacin [Cipro] Allergy Intermediate CHEST Verified 08/29/23 15:33 TIGHTNESS levofloxacin Allergy Unknown HOSPITALIZE Unverified 08/29/23 15:33 D Sulfa (Sulfonamide Allergy Unknown vomiting, Unverified 08/29/23 15:33 Antibiotics) migraine gluten AdvReac Intermediate BLOATING, Unverified 08/29/23 15:33 FATIGUE Home Meds Home Medications Medication Instructions Recorded Confirmed liothyronine 25 mcg tablet 20 mcg PO DAILY 08/29/23 08/29/23 multivitamin 1 tab PO DAILY 08/29/23 08/29/23 omega-3 fatty acids 1,000 mg 0 mg PO DAILY 08/29/23 08/29/23 capsule potassium chloride 20 mEq oral 20 meq PO MOWEFR 08/29/23 08/29/23 packet (Klor-Con) triamterene 37.5 1 tab PO DAILY PRN .High bp 08/29/23 08/29/23 mg-hydrochlorothiazide 25 mg tablet vitamin B complex 1 tab PO DAILY 08/29/23 08/29/23 Results & Data (ED) Vital Signs Vital Signs - 24 hr 08/29/23 10:52 08/29/23 11:00 08/29/23 11:02 Pulse Rate 79 71 Pulse Rate from SpO2 Sensor Respiratory Rate 17 Blood Pressure 229/122 H Blood Pressure Mean 145 Pulse Oximetry 08/29/23 11:02 08/29/23 11:15 08/29/23 11:15 Pulse Rate 69 59 L Pulse Rate from SpO2 Sensor 70 59 L Respiratory Rate 15 18 Blood Pressure 213/111 H Blood Pressure Mean 139 Pulse Oximetry 97 95 08/29/23 11:30 08/29/23 12:00 08/29/23 12:00 Pulse Rate 65 65 Pulse Rate from SpO2 Sensor 65 65 Respiratory Rate 20 16 Blood Pressure 200/113 H Blood Pressure Mean 127 Pulse Oximetry 93 95 08/29/23 12:15 08/29/23 12:15 08/29/23 12:30 Pulse Rate 61 65 Pulse Rate from SpO2 Sensor 64 65 Respiratory Rate 15 19 Blood Pressure 203/113 H Blood Pressure Mean 130 Pulse Oximetry 94 96 08/29/23 12:30 08/29/23 12:45 08/29/23 13:01 Pulse Rate 73 72 Pulse Rate from SpO2 Sensor 76 73 Respiratory Rate 22 14 Blood Pressure 199/113 H 200/115 H 202/104 H Blood Pressure Mean 137 143 136 Pulse Oximetry 97 96 08/29/23 13:15 08/29/23 13:15 08/29/23 13:30 Pulse Rate 66 60 Pulse Rate from SpO2 Sensor 65 61 Respiratory Rate 16 21 Blood Pressure 208/110 H 208/110 H 210/105 H Blood Pressure Mean 142 137 140 Pulse Oximetry 97 96 08/29/23 13:45 08/29/23 14:00 08/29/23 14:15 Pulse Rate 63 69 Pulse Rate from SpO2 Sensor 63 69 Respiratory Rate 21 17 Blood Pressure 203/107 H 186/103 H 167/92 H Blood Pressure Mean 139 125 117 Pulse Oximetry 95 94 08/29/23 14:30 08/29/23 14:30 08/29/23 15:02 Pulse Rate 62 65 Pulse Rate from SpO2 Sensor 63 Respiratory Rate 19 Blood Pressure 158/92 H Blood Pressure Mean 107 Pulse Oximetry 94 Laboratory Data 08/30/23 02:30 08/30/23 02:30 Lab Results 08/29/23 Range/Units 11:00 WBC 6.62 (4.8-10.8) K/ul RBC 4.68 (4.20-5.40) M/uL Hgb 14.1 (12.0-16.0) g/dl Hct 41.4 (37.0-47.0) % MCV 88.5 (80.0-100.0) fL MCH 30.1 (25.0-34.0) pg MCHC 34.1 (32.0-36.0) g/dL RDW Std Deviation 40.7 (36.4-46.3) fL RDW Coeff of Fermin 12.5 (11.5-14.5) % Plt Count 188 (130-400) K/uL MPV 9.1 L (9.4-12.4) fL Immature Gran % (Auto) 0.3 % Neut % (Auto) 93.2 % Lymph % (Auto) 4.2 % [place] % (Auto) 2.0 % Eos % (Auto) 0.0 % Baso % (Auto) 0.3 % Neut # (Auto) 6.17 (1.40-6.50) K/uL Lymph # (Auto) 0.28 L (1.20-3.40) K/uL [place] # (Auto) 0.13 (0.11-0.59) K/uL Eos # (Auto) 0.00 (0.00-0.50) K/uL Baso # (Auto) 0.02 (0.00-0.20) K/uL Immature Gran # (Auto) 0.02 (0.01-0.20) K/uL Sodium 133 L (136-145) mmol/L Potassium 3.3 L (3.5-5.1) mmol/L Chloride 98 (98-107) mmol/L Carbon Dioxide 24 (21-32) mmol/L Anion Gap 11 (3-11) BUN 12 (6-23) mg/dl Creatinine 0.68 (0.6-1.2) mg/dl Est Cr Clr Drug Dosing 75.2 ml/min Est GFR ( Amer) 105.6 ml/min Est GFR (Non-Af Amer) 91.2 ml/min BUN/Creatinine Ratio 17.6 (10-20) Glucose 134 H (70-99(Fasting)) mg/dl Calcium 9.6 (8.6-10.3) mg/dl Magnesium 2.1 (1.7-2.4) mg/dl Total Bilirubin 0.8 (0.2-1.0) mg/dl AST 28 (13-39) U/L ALT 15 (7-52) U/L Alkaline Phosphatase 68 (34-104) U/L Troponin I High Sens 11.8 (0-14) pg/ml Total Protein 8.6 H (6.0-8.3) gm/dl Albumin 4.9 (3.4-5.0) gm/dl Globulin 3.7 (2.5-4.0) gm/dl Albumin/Globulin Ratio 1.3 (0.9-2) TSH 3.409 (0.300-4.500) uIu/ml Administered Medications Enoxaparin Sodium (Enoxaparin Inj 40 Mg/0.4 Ml Syr) 40 mg SQ Q24H ARIANNA Stop: 09/28/23 17:59 Last Admin: 08/29/23 18:32 Dose: 40 mg Documented By: FAYE Liothyronine Sodium (Liothyronine Sodium 5 Mcg Tab) 20 mcg PO DAILYBB ARIANNA Stop: 09/29/23 06:29 Last Admin: 08/30/23 06:05 Dose: 20 mcg Documented By: CARLI Losartan Potassium (Losartan Potassium 25 Mg Tab) [facility]: 09/29/23 08:59 Last Admin: 08/30/23 09:15 Dose: 25 mg Documented By: FAYE Nifedipine (Nifedipine Extended Rel 30 Mg Tabcr) [facility] Stop: 09/29/23 08:59 Last Admin: 08/30/23 09:13 Dose: 30 mg Documented By: FAYE Ondansetron HCl (Ondansetron Inj 2 Mg/Ml 2 Ml Vial) 4 mg IV Q6H PRN PRN Reason: Nausea Stop: 09/28/23 19:00 Last Admin: 08/29/23 20:15 Dose: 4 mg Documented By: CARLI Discontinued Medications Diphenhydramine HCl (Diphenhydramine 50 Mg/Ml Vial) 25 mg IV NOW STA Stop: 08/29/23 11:26 Last Admin: 08/29/23 11:31 Dose: 25 mg Documented By: SUNIL Hydralazine HCl (Hydralazine Hcl 20 Mg/Ml Vial) 10 mg IV NOW STA Stop: 08/29/23 13:19 Last Admin: 08/29/23 13:40 Dose: 10 mg Documented By: ROXANNE Hydralazine HCl (Hydralazine Hcl 20 Mg/Ml Vial) 10 mg IV NOW STA Stop: 08/29/23 18:14 Last Admin: 08/29/23 18:41 Dose: 10 mg Documented By: FAYE Hydromorphone HCl (Hydromorphone Inj 0.5 Mg/0.5 Ml Syr) 0.5 mg IV NOW STA Stop: 08/29/23 13:51 Last Admin: 08/29/23 13:56 Dose: 0.5 mg Documented By: ROXANNE Hydromorphone HCl (Hydromorphone Inj 0.5 Mg/0.5 Ml Syr) 0.5 mg IV NOW STA Stop: 08/29/23 21:28 Last Admin: 08/29/23 21:39 Dose: 0.5 mg Documented By: CARLI Prochlorperazine (Compazine) 1 mls @ 1 mls/min IV ONE ONE Stop: 08/29/23 11:26 Last Admin: 08/29/23 11:31 Dose: 1 mls/min Documented By: SUNIL Sodium Chloride (1/2 Nss) 1,000 mls @ 125 mls/hr IV .Q8H ARIANNA Stop: 08/30/23 03:29 Last Infusion: 08/30/23 04:11 Dose: Infused Documented By: Admin: 08/29/23 20:25 Dose: 125 mls/hr Documented By: CARLI Labetalol HCl (Labetalol Hcl Iv 5 Mg/Ml 20ml) 10 mg IV NOW STA Stop: 08/29/23 10:56 Last Admin: 08/29/23 11:11 Dose: 10 mg Documented By: SUNIL Co-signed By: YULIANA Morphine Sulfate (Morphine Sulfate 4 Mg/Ml 1 Ml Carp\Vial) 4 mg IV NOW STA Stop: 08/29/23 13:19 Last Admin: 08/29/23 13:49 Dose: Not Given Documented By: ROXANNE Nifedipine (Nifedipine Extended Rel 30 Mg Tabcr) 30 mg PO NOW STA Stop: 08/29/23 16:02 Last Admin: 08/29/23 16:38 Dose: 30 mg Documented By: DANNIELLE Ondansetron HCl (Ondansetron Inj 2 Mg/Ml 2 Ml Vial) 4 mg IV NOW STA Stop: 08/29/23 10:56 Last Admin: 08/29/23 11:11 Dose: 4 mg Documented By: SUNIL Ondansetron HCl (Ondansetron Inj 2 Mg/Ml 2 Ml Vial) 4 mg IV NOW STA Stop: 08/29/23 13:19 Last Admin: 08/29/23 13:56 Dose: 4 mg Documented By: ROXANNE Potassium Chloride (Potassium Chloride Crtab 20 Meq Tabcr) 40 meq PO NOW STA Stop: 08/29/23 17:38 Last Admin: 08/29/23 17:54 Dose: 40 meq Documented By: FAYE Discharge Plan Visit Data Chief Complaint: Hypertension Stated Complaint: HIGH BP, VOMITING, UNABLE TO EAT AND DRINK ED Provider: Alejandra Ragland Patient Disposition: Admitted As Inpatient Discharge Instructions Interventions: ED Discharge Assessment Last Done: 08/29/23 16:51
[2023-08-30] MEDS: LORazepam 0.5 MG in SYRINGE 0.25 ML IV SCH (13:05)
--- NOTE | 2023-08-30 13:10 | Cardiology Consultation ---
<Statement entered by Marbella Amin MD - 08/30/23 20:50> I have reviewed the advanced practitioner's documentation on the date of service referenced in note, and I agree with, and take responsibility for the plan of care. 68-year-old with history of hypertension presents with to the emergency room with headaches. hypertensive urgency mildly elevated troponin no evidence of acute coronary syndrome echocardiogram shows normal ejection fraction no significant valvular problems plan for outpatient stress testing I spent a total of [15] minutes coordinating, documenting, and providing care for this patient excluding time spent in the performance of separately billed services or time spent by another provider. Date of Consultation August 30, 2023 Assessment & Plan (1) Hypertensive urgency: (2) Abnormal EKG: (3) Hypothyroidism: (4) Hypokalemia: (5) Elevated troponin: Plan 68-year-old female admitted with hypertensive urgency. Initial blood pressure 224/127. Longstanding hypertension noted along with noncompliance. Mild elevation in high-sensitivity troponin observed, without chest pain. EKG with STT wave abnormality inferiorly and anterolaterally, LVH versus ischemia Telemetry benign Resting echocardiography pending Add losartan 50 mg/day Okay to continue nifedipine Await resting echocardiography Secondary workup of hypertension ? Future addition of spironolactone Avoid thiazides, Re: hyponatremia Outpatient stress test History of Present Illness Reason for Consultation: Hypertension, abnormal EKG Requesting Physician: Reggie Attending Physician: Jose History of Present Illness 68-year-old female seen at the request of [facility] Service, Re: Hypertension, abnormal EKG Presented to the [facility] ER on August 29, 2023 with headache, nausea, observed elevated blood pressures despite taking Maxide in excess. Initial blood pressure on presentation was 224/127 Mild hypokalemia (3.3) noted on presentation, along with mild hyponatremia (133) Head CT negative for acute findings Chest x-ray without acute cardiopulmonary abnormality EKG revealed sinus rhythm at 68 bpm with left atrial enlargement voltage criteria for LVH, nonspecific STT wave abnormality. QTc 459 ms. A second EKG revealed sinus bradycardia at 57 bpm with sinus arrhythmia, LVH, anterolateral T wave inversion Initial high-sensitivity troponin normal at 11.8, rising to 30.5 and 40.1 Resting echocardiography obtained earlier today, results pending interpretation by knotter Received 10 mg IV labetalol, 25 mg of IV Benadryl, prochlorperazine, Zofran, 4 mg morphine, 0.5 mg IV Dilaudid, 10 mg IV hydralazine with improvement in blood pressure and headaches. Started on nifedipine by hospitalist service. Patient notes history of hypertension x 7 years. Notes blood pressure spikes periodically, associated with vomiting and migraine headaches, taking triamterene hydrochlorothiazide as needed, taking 3 doses yesterday. 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 She notes exercising at the gym regularly though avoiding aerobic activity due to dyspnea. No chest pain or discomfort. No palpitations. No orthopnea or PND. No lower extremity peripheral edema. No syncope. No melena or hematochezia. 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 Father with bone cancer. Sister is alive and well. 1 sister has 3 small brain aneurysm, alive at the age of 76. Paternal grandfather with an CT in his mid 50s. Brother with an CT in his 50s. Social History: Reformed smoker having smoked up to 1 pack/day x 15 years, quitting approximately 30 years ago. No significant alcohol consumption. No illegal drug use recently, marijuana some 30 years ago. Originally from [place]. In the process of going through a divorce. 4 children, 7 grandchildren. Works at [employer]. Allergies Allergy/AdvReac Type Severity Reaction Status Date / Time Penicillins Allergy Severe SWELLING Verified 08/29/23 15:33 Cipro Allergy Intermediate CHEST Verified 02/04/18 13:01 TIGHTNESS ciprofloxacin [Cipro] Allergy Intermediate CHEST Verified 08/29/23 15:33 TIGHTNESS levofloxacin Allergy Unknown HOSPITALIZE Unverified 08/29/23 15:33 D Sulfa (Sulfonamide Allergy Unknown vomiting, Unverified 08/29/23 15:33 Antibiotics) migraine gluten AdvReac Intermediate BLOATING, Unverified 08/29/23 15:33 FATIGUE Home Medications Medication Instructions Recorded Confirmed Type liothyronine 25 mcg tablet 20 mcg PO DAILY 08/29/23 08/29/23 History multivitamin 1 tab PO DAILY 08/29/23 08/29/23 History omega-3 fatty acids 1,000 mg 0 mg PO DAILY 08/29/23 08/29/23 History capsule potassium chloride 20 mEq oral 20 meq PO MOWEFR 08/29/23 08/29/23 History packet (Klor-Con) triamterene 37.5 1 tab PO DAILY PRN .High bp 08/29/23 08/29/23 History mg-hydrochlorothiazide 25 mg tablet vitamin B complex 1 tab PO DAILY 08/29/23 08/29/23 History Patient History Medical History Hyperthyroidism History of leukemia Bronchiectasis Hypertension Surgical History History of abdominoplasty Family History Brother Heart disease fatal CT age 56 Mother FH: brain aneurysm Hypertension Grandfather (Paternal) Heart disease Grandmother (Maternal) Hypertension Other Cancer Social History Smoking Status: Never smoker Second Hand Exposure: No; Do You Dip or Chew Tobacco: No; Hx Alcohol Use: No Hx Substance Use: No Preferred Language: Lithuanian Communication Ability: Effective Freelance Director Required: No Beliefs That Will Affect Care: None Current Living Situation: Family Current Living Situation Comment: Living with daughter Feels Safe at Home: Yes Assistive Devices: Denture - Upper, Denture - Lower and Glasses Review of Systems Review of Systems: Complete Review of Systems: Constitutional: No fevers or chills HEENT: No history of cataracts, macular degeneration, or glaucoma. No history of amaurosis fugax. Pulmonary: See above. No history of PE or sleep apnea. Cardiac: Denies history of CAD, CT, CHF, arrhythmia, heart murmur, rheumatic fever, or scarlet fever. GI/Abd: Occasional trouble swallowing. No melana or hematochezia. No kidney problems. No liver problems. No history of pancreatic issues. Vascular: No history of carotid artery disease, AAA, or lower extremity claudication/PAD. Hematologic: History of hairy cell leukemia, in remission, treated with chemotherapy x 3 years, 2 years in [place], 1 year in [place] Musculoskeletal: Negative. Skin: No rash. Neurologic: No history of TIA/CVA, or seizure disorder. Endocrine: Hypothyroidism. Denies history of diabetes. Complete Review of Systems is as stated above, negative, or noncontributory Physical Exam Physical Exam: General: A&Ox3. NAD. HENT: Normocephalic. Atraumatic. Eyes: PER. Conjunctiva pink, sclera clear. Neck: Left carotid bruits. No JVD. No HJR. Heart: RRR. Soft systolic murmur heard at the left upper sternal border. No diastolic murmur. No rub. No gallop. PMI is nondisplaced. Lungs: Diminished. Clear to auscultation. Abdomen: +BS. Soft. Nontender. No masses or organomegaly. Extremities: No clubbing, cyanosis, or edema. Limited neurological examination is without focal deficits. Pulses: radial=2/4, posterior tibial=2/4. Results & Data Vital Signs (Past 12 Hours) Vital Signs Temp Pulse Pulse Resp BP BP Pulse Ox 08/30/23 10:31 36.6 C 67 18 164/84 H 96 08/30/23 07:45 75 08/30/23 07:28 36.9 C 63 17 166/83 H 97 08/30/23 03:31 37.1 C 70 18 156/79 H 94 O2 Del Method 08/30/23 10:31 Room Air 08/30/23 07:45 08/30/23 07:28 Room Air 08/30/23 03:31 Room Air Laboratory Results Cardiac Enzymes 08/29/23 08/29/23 08/30/23 Range/Units 11:00 20:49 02:30 Troponin I High Sens 11.8 30.5 H D 40.1 H (0-14) pg/ml Lipids 08/30/23 Range/Units 02:30 Triglycerides 77 (0-150) mg/dl Cholesterol 203 H (0-200) mg/dl HDL Cholesterol 69 mg/dl Cholesterol/HDL Ratio 2.9 (0-5) CBC 08/30/23 Range/Units 02:30 WBC 5.01 (4.8-10.8) K/ul RBC 4.06 L (4.20-5.40) M/uL Hgb 12.2 (12.0-16.0) g/dl Hct 35.1 L (37.0-47.0) % Plt Count 204 (130-400) K/uL Comprehensive Metabolic Panel 08/30/23 Range/Units 02:30 Sodium 134 L (136-145) mmol/L Potassium 3.6 (3.5-5.1) mmol/L Chloride 98 (98-107) mmol/L Carbon Dioxide 26 (21-32) mmol/L BUN 19 (6-23) mg/dl Creatinine 0.79 (0.6-1.2) mg/dl Glucose 107 H (70-99(Fasting)) mg/dl Calcium 9.0 (8.6-10.3) mg/dl Intake and Output 08/29/23 08/30/23 08/30/23 22:59 06:59 14:59 Intake Total 100 / 1300 1200 / 1300 Output Total 250 / 650 400 / 650 Balance -150 / 650 800 / 650 Intake: IV 1000 / 1000 Sodium Chloride 0.45 % 1,000 ml 1000 / 1000 @ 125 mls/hr IV .Q8H [facility] Rx#: [id number] Oral 100 / 300 200 / 300 Output: Urine 250 / 650 400 / 650 Other: Weight 57 kg 59.6 kg Weight Measurement Method [facility] Diagnostic Findings Telemetry: Sinus throughout
--- NOTE | 2023-08-30 13:27 | Electrocardiogram Report ---
Test Reason : Blood Pressure : / mmHG Vent. Rate : 059 BPM Atrial Rate : 059 BPM P-R Int : 136 ms QRS Dur : 092 ms QT Int : 376 ms P-R-T Axes : 064 040 096 degrees QTc Int : 372 ms Sinus bradycardia Minimal voltage criteria for LVH, may be normal variant Diffuse Minor Nonspecific T wave abnormality Prominent U waves(consider hypokalemia,drug effect, etc.) Abnormal ECG When compared with ECG of 29-AUG-2023 15:20, T wave inversion no longer evident in Inferior leads T wave inversion no longer evident in Anterior leads Confirmed by Denis Peace ([id number]) on 08/30/2023 1:26:54 PM Referred By: REFERRED SELF Confirmed By:Denis Peace
[2023-08-30] MEDS: GADOBUTROL 7.5ML VIAL IV ONE (14:29)
--- NOTE | 2023-08-30 14:38 | Magnetic Resonance Report ---
MRA OF THE INTRACRANIAL CIRCULATION WITHOUT CONTRAST CLINICAL HISTORY: Headache. COMPARISON STUDY: CTA of the head April 21, 2014. Head CT August 28, 2013. TECHNIQUE: Utilizing a 1.5 Ondina magnet and 3-D [id number] technique, unenhanced MRA of the intra cranial circulation was obtained. FINDINGS: Please note that the MRI of the brain will be reported separately. The bilateral M1, M2, A1 and A2 segments are patent. There is no intracranial aneurysm. persistence of the posterior ar teries is incidentally noted. Posterior circulation is intact. No stenosis within the intracranial ve ssels are identified. IMPRESSION: Unremarkable MRA of the head. No intracranial aneurysm. No central vessel occlusion. ACT 112: Negative or not required by law. Electronically signed by: Pool Berry M.D. 08/30/2023 2:36 PM
--- NOTE | 2023-08-30 14:53 | Hospitalist Progress Note ---
Date of Service August 30, 2023 Assessment & Plan (1) Hypertensive urgency: (2) Abnormal EKG: (3) Headache: Plan: Patient is 68 year old female with PMH hairy cell leukemia in 2002 in remission, hypothyroidism, bronchiectasis, HTN, history migraine headache presented to ER with complaint of headache, nausea and elevated blood pressure x 1 day. Hypertensive urgency Noncompliant with dyazide which she attributes to intolerance Nromal TSH Started on nifedipine, losartan About Dyazide given hyponatremia Blood pressure much improved Monitor Echo pending Appreciate cardiology input Chronic ongoing headache DD: Secondary to uncontrolled hypertension, migraine --CT head:No acute intracranial abnormality. --MRA Brain: Unremarkable MRA of the head. No intracranial aneurysm. No central vessel occlusion. --MRI brain:pending Pain control Advised to follow-up with neurology as outpatient Consider starting on magnesium, B2 supplements if patient agrees Mild troponin elevation Likely demand ischemia secondary to uncontrolled hypertension Less likely ACS Echo pending Monitor (4) Hypokalemia: Plan: Replace and monitor Hypothyroidism Normal TSH Continue levothyroxine (5) Bronchiectasis: Plan: History of bronchiectasis. Continue flutter valve monitor (6) History of leukemia: Plan: Reports history hairy cell leukemia 2002 treated [place] country and at [facility] in [place] In remission DVT Prophylaxis Lovenox SQ Code Status Full Code Admission and Anticipated Discharge Date Admission Date: August 29, 2023 Subjective Patient is seen and examined at bedside Nausea resolved Headache improving Denies any chest pain, dyspnea Family at bedside Offers no other complaints Blood pressure much improved Review of Systems Review of Systems: All systems reviewed & are unremarkable except as noted in Subjective Physical Exam Physical Exam: Physical Exam: Vitals signs as noted above General Appearance:Thin, no apparent distress Head: normocephalic, Atraumatic Eyes: normal inspection, EOMI Neck: supple, Trachea midline Respiratory/Chest: Normal breath sounds, CTA, No accessory muscle use Cardiovascular: S1, S2, No murmur Abdomen/GI:Soft, Non tender, Bowel sounds present Extremities/Musculoskeletal:normal inspection, no edema Neurologic/Psych:AAOX3, grossly no focal neurological deficits Skin: normal color, warm Results & Data Results & Data Vital Signs (Past 12 Hours) Vital Signs Temp Pulse Pulse Resp BP BP Pulse Ox 08/30/23 10:31 36.6 C 67 18 164/84 H 96 08/30/23 07:45 75 08/30/23 07:28 36.9 C 63 17 166/83 H 97 08/30/23 03:31 37.1 C 70 18 156/79 H 94 O2 Del Method 08/30/23 10:31 Room Air 08/30/23 07:45 08/30/23 07:28 Room Air 08/30/23 03:31 Room Air Laboratory Results Short CBC 08/30/23 Range/Units 02:30 WBC 5.01 (4.8-10.8) K/ul Hgb 12.2 (12.0-16.0) g/dl Hct 35.1 L (37.0-47.0) % Plt Count 204 (130-400) K/uL BMP 08/30/23 02:30 Sodium 134 L Potassium 3.6 Chloride 98 Carbon Dioxide 26 BUN 19 Creatinine 0.79 Glucose 107 H Calcium 9.0 Urine 08/29/23 Range/Units Unknown Urine Color Yellow Urine Appearance Clear (Clear) Urine pH 5.5 (4.5-7.5) Ur Specific [place] 1.019 (1.000-1.030) Urine Protein 3+ H (Negative) Urine Glucose (UA) Negative (Negative)
[2023-08-30] MEDS: LOSARTAN POTASSIUM 25 MG TAB PO ONE (15:09)
--- NOTE | 2023-08-30 15:13 | Magnetic Resonance Report ---
MRI OF THE BRAIN WITHOUT AND WITH IV CONTRAST CLINICAL HISTORY: Headache. COMPARISON STUDY: Head CT August 29, 2023. TECHNIQUE: Utilizing a 1.5 Ondina magnet and dedicated coil, multiplanar, multiecho imaging of the br ain was performed pre and postcontrast administration. IV administration of 6 mL of Gadavist contras t was uneventful. Thin cut T1 post contrast imaging was performed. FINDINGS: There are no foci of restricted diffusion to suggest acute infarct. No acute intracranial h emorrhage, midline shift or mass effect is present. Brain volume is normal. Ventricular system is nor mal. Basal cisterns are patent. Flow-voids for the major intracranial vessels are present. There is n o intracranial mass or pathologic enhancement. Multiple white matter T2 hyperintense foci are present . Calvarial signal is normal. There is no evidence for sinusitis. There is no mastoid fluid. IMPRESSION: 1. No acute intracranial findings. 2. No intracranial mass or pathologic enhancement. 3. Multiple white matter T2 hyperintense foci. These are nonspecific although statistically reflect s mall vessel disease. ACT 112: Negative or not required by law. Electronically signed by: Pool Berry M.D. 08/30/2023 3:10 PM
[2023-08-30] MEDS: GADOBUTROL 65ML VIAL IV ONE (19:32)
[2023-08-30] MEDS ORDERED: SODIUM CHLORIDE 0.65% NA SOLN 45 ML (OCEAN) PRN (19:45)
[2023-08-30] MEDS: NIFEdipine EXTENDED REL 30 MG TABCR PO STA (20:40)
[2023-08-30] MEDS: SODIUM CHLORIDE 0.65% NA SOLN 45 ML (OCEAN) ONE (20:40)
[2023-08-31 05:12] LABS: Hematocrit (blood only) 35.6 % (37.0-47.0); Hemoglobin 12.2 g/dl (12.0-16.0); Mean Corpuscular Hemoglobin 30.3 pg (25.0-34.0); Mean Corpuscular Hgb Conc 34.3 g/dL (32.0-36.0); Mean Corpuscular Volume 88.6 fL (80.0-100.0); Mean Platelet Volume 9.2 fL (9.4-12.4); Platelet Count 198 K/uL (130-400); RDW Standard Deviation 42.1 fL (36.4-46.3); Red Blood Count 4.02 M/uL (4.20-5.40); White Blood Count 4.09 K/ul (4.8-10.8)
[2023-08-31 05:26] LABS: BUN Creatinine Ratio 23.8 (10-20); Calcium 8.7 mg/dl (8.6-10.3); Creatinine Clr Calc Pharmacy 82.6 ml/min; Est GFR (African American) 108.3 ml/min; Est GFR (Non-African American) 93.5 ml/min; Magnesium 2.1 mg/dl (1.7-2.4); Potassium 3.6 mmol/L (3.5-5.1)
--- NOTE | 2023-08-31 09:04 | Electrocardiogram Report ---
Test Reason : Blood Pressure : / mmHG Vent. Rate : 064 BPM Atrial Rate : 064 BPM P-R Int : 134 ms QRS Dur : 086 ms QT Int : 424 ms P-R-T Axes : 075 041 088 degrees QTc Int : 437 ms Normal sinus rhythm Voltage criteria for left ventricular hypertrophy Diffuse Nonspecific T wave abnormality Prominent U waves(consider hypokalemia,drug effect, etc.) Abnormal ECG When compared with ECG of 30-AUG-2023 06:37, QT has lengthened Confirmed by Denis Peace ([id number]) on 08/31/2023 9:04:31 AM Referred By: REFERRED SELF Confirmed By:Denis Peace
[2023-08-31] MEDS: NIFEdipine EXTENDED REL 30 MG TABCR PO SCH (09:24)
[2023-08-31] MEDS: LOSARTAN POTASSIUM 50 MG TAB PO SCH (09:24)
--- NOTE | 2023-08-31 09:24 | Ultrasound Report ---
US duplex renal artery CLINICAL HISTORY: HTN TECHNIQUE: Real-time grayscale and color and spectral Doppler ultrasound imaging of the kidneys was p erformed. Comparison: None available at the time of this dictation. FINDINGS: Right kidney measures 11.2 cm. Left kidney measures 11.9 cm. RIGHT: The right kidney is normal in size, contour, cortical thickness, and echogenicity. No hydronephrosis is identified. No renal lesion is identified. Spectral analysis: Intrarenal resistive indices measure up to 0.56. Waveforms are normal in appearance.. Renal artery ve locities and waveforms are normal. Renal vein patent. LEFT: The left kidney is normal in size, contour, cortical thickness and echogenicity. No hydronephrosis i s identified. A cyst is noted measuring 1.9 cm Spectral analysis: Intrarenal resistive indices measure up to 0.65. Waveforms are normal in appearance. Renal artery calin ocities and waveforms are normal. Renal vein patent. Abdominal aorta: Patent. Peak systolic velocity 63.2 cm/s. Bladder: Normal. Bilateral ureteral jets present. Reference ranges: Normal main renal artery peak systolic velocity less than 180 cm/s. Ratio of renal artery PSV to aort ic PSV less than 3.5 equates to normal or less than 60% stenosis. Only one of the two criteria listed needs to be met for diagnosis. Arcuate resistive indices about 0.8 are elevated. IMPRESSION: No evidence of renal artery stenosis. ACT 112: Negative or not required by law. Electronically signed by: Sinan Arevalo M.D. 08/31/2023 9:22 AM
[2023-08-31] MEDS: POTASSIUM CHLORIDE CRTAB 20 MEQ TABCR PO ONE (10:14)
--- NOTE | 2023-08-31 11:50 | Cardiology Progress Note ---
<Statement entered by Marbella Amin MD - 08/31/23 18:56> I have reviewed the advanced practitioner's documentation on the date of service referenced in note, and I agree with, and take responsibility for the plan of care. will sign off please call with questions I spent a total of [10] minutes coordinating, documenting, and providing care for this patient excluding time spent in the performance of separately billed services or time spent by another provider. Date of Service August 31, 2023 Assessment & Plan (1) Hypertensive urgency: (2) Abnormal EKG: (3) Hypothyroidism: (4) Hypokalemia: (5) Elevated troponin: Plan 68-year-old female admitted with hypertensive urgency. Initial blood pressure 224/127. Longstanding hypertension noted, along with noncompliance. Mild elevation in high-sensitivity troponin observed, without chest pain. EKG with STT wave abnormality inferiorly and anterolaterally, LVH versus ischemia Telemetry benign Resting echocardiography on August 30, 2023: Normal LV and RV systolic function. Sigmoid septum. EF 60-65%. Left atrium was mildly dilated. Mild mitral regurgitation Renal Duplex: Kidneys normal in size, contour, cortical thickness, and echogenicity. No evidence of renal artery stenosis. 1.9 cm left renal cyst. Recommendations: 1. Increase Losartan to 100 mg/day. 2. Trial low dose spironolactone, 12.5 mg/day 3. Continue nifedipine 4. Outpatient stress test 5. URI as per Hospitalist Service Admission and Anticipated Discharge Date Admission Date: August 29, 2023 Subjective Patient seen and examined. Chart, medications, and telemetry reviewed. Notes catching a cold in the hospital, with nasal congestion, white sputum production. No fevers or chills. Telemetry: Sinus with heart rates predominantly in the 60s and 70s EKG this morning reveals normal sinus rhythm at 64 bpm with voltage criteria for LVH, diffuse nonspecific T wave abnormality, prominent U waves, QTc 437 ms. Review of Systems Review of Systems: Complete review of systems is as stated above, negative, noncontributory Physical Exam Physical Exam: General: A&Ox3. NAD. HENT: Normocephalic. Atraumatic. + Nasal congestion. Eyes: PER. Conjunctiva pink, sclera clear. Neck: Left carotid bruits. No JVD. No HJR. Heart: RRR. Soft systolic murmur heard at the left upper sternal border. No diastolic murmur. No rub. No gallop. PMI is nondisplaced. Lungs: Diminished. Clear to auscultation. Abdomen: +BS. Soft. Nontender. No masses or organomegaly. Extremities: No clubbing, cyanosis, or edema. Limited neurological examination is without focal deficits. Pulses: radial=2/4, posterior tibial=2/4. Results & Data Vital Signs (Past 12 Hours) Vital Signs Temp Pulse Pulse Resp BP BP Pulse Ox 08/31/23 11:24 36.9 C 60 18 155/77 H 96 08/31/23 07:55 37.1 C 63 18 169/89 H 96 08/31/23 07:00 80 08/31/23 03:00 37 C 65 18 173/93 H 96 08/31/23 00:00 76 O2 Del Method 08/31/23 11:24 Room Air 08/31/23 07:55 Room Air 08/31/23 07:00 08/31/23 03:00 Room Air 08/31/23 00:00 Laboratory Results CBC 08/31/23 Range/Units 04:30 WBC 4.09 L (4.8-10.8) K/ul RBC 4.02 L (4.20-5.40) M/uL Hgb 12.2 (12.0-16.0) g/dl Hct 35.6 L (37.0-47.0) % Plt Count 198 (130-400) K/uL Comprehensive Metabolic Panel 08/31/23 Range/Units 04:30 Sodium 138 (136-145) mmol/L Potassium 3.6 (3.5-5.1) mmol/L Chloride 104 (98-107) mmol/L Carbon Dioxide 29 (21-32) mmol/L BUN 15 (6-23) mg/dl Creatinine 0.63 (0.6-1.2) mg/dl Glucose 89 (70-99(Fasting)) mg/dl Calcium 8.7 (8.6-10.3) mg/dl Intake and Output 08/30/23 08/31/23 08/31/23 22:59 06:59 14:59 Intake Total 880 / 1280 400 / 1280 Balance 880 / 1280 400 / 1280 Intake: Oral 880 / 1280 400 / 1280 Other: # Unmeasured Voids 2 2 Weight 60 kg Weight Measurement Method Standing Scale
[2023-08-31] MEDS: FLUTICASONE PROPIONATE NA SPR 16 GM BTL SCH (12:16)
[2023-08-31] MEDS: LOSARTAN POTASSIUM 50 MG TAB PO ONE (12:34)
[2023-08-31 13:11] LABS: Adenovirus PCR Not Detected (NotDetected); Bordetella parapertussis PCR Not Detected (NotDetected); Bordetella pertussis PCR Not Detected (NotDetected); Chlamydia pneumoniae PCR Not Detected (NotDetected); Coronavirus 229E PCR Not Detected (NotDetected); Coronavirus CoV-2 (COVID19)PCR DETECTED (NotDetected); Coronavirus HKU1 PCR Not Detected (NotDetected); Coronavirus NL63 PCR Not Detected (NotDetected); Coronavirus OC43PCR Not Detected (NotDetected); Human Metapneumovirus PCR Not Detected (NotDetected); Influenza A PCR Not Detected (NotDetected); Influenza B PCR Not Detected (NotDetected); Mycoplasma pneumoniae PCR Not Detected (NotDetected); Parainfluenza Virus 1 PCR Not Detected (NotDetected); Parainfluenza Virus 2 PCR Not Detected (NotDetected); Parainfluenza Virus 3 PCR Not Detected (NotDetected); Parainfluenza Virus 4 PCR Not Detected (NotDetected); Respiratory Syncytial VirusPCR Not Detected (NotDetected); Rhinovirus/Enterovirus PCR Not Detected (NotDetected)
[2023-08-31] MEDS ORDERED: LEVALBUTEROL HCL 0.63 MG/3 ML NEB NEB PRN (14:12)
[2023-08-31] MEDS ORDERED: ALBUTEROL HFA 8 GM INHALER INH PRN (14:12)
[2023-08-31] MEDS: SPIRONOLACTONE 12.5 MG TAB PO SCH (14:17)
--- NOTE | 2023-08-31 14:54 | Hospitalist Progress Note ---
Date of Service August 31, 2023 Assessment & Plan (1) Hypertensive urgency: (2) Abnormal EKG: (3) Headache: Plan: Patient is 68 year old female with PMH hairy cell leukemia in 2002 in remission, hypothyroidism, bronchiectasis, HTN, history migraine headache presented to ER with complaint of headache, nausea and elevated blood pressure x 1 day. Hypertensive urgency Noncompliant with dyazide which she attributes to intolerance Normal TSH --ECHO: EF 60 to 65%. Right ventricle systolic function is normal. Left ventricle systolic function is normal. Left atrium is mildly dilated. Mild mitral regurgitation. Started on nifedipine, losartan Discontinue Dyazide given hyponatremia/intolerance Appreciate cardiology input Losartan dose increased to 100 mg daily Nifedipine dose increased to 60 mg daily Also added Aldactone 12.5 mg daily Monitor BP Chronic ongoing headache DD: Secondary to uncontrolled hypertension, migraine --CT head:No acute intracranial abnormality. --MRA Brain: Unremarkable MRA of the head. No intracranial aneurysm. No central vessel occlusion. --MRI brain: No acute intracranial findings. No intracranial mass or pathologic enhancement. Multiple white matter T2 hyperintense foci. These are nonspecific although statistically reflect small vessel disease. Pain control Given white matter changes, advised patient to follow-up with neurology as outpatient. Consider starting on magnesium, B2 supplements on discharge if patient agrees COVID19 Infection URI secondary to above --Biofire + for COVID 19 Isolation precautions Saturating well on room air Check CRP, procalcitonin Flonase added Nebs as needed Will recheck chest x-ray tomorrow Conservative management for now Mild troponin elevation Likely demand ischemia secondary to uncontrolled hypertension Less likely ACS Echo pending Monitor (4) Hypokalemia: Plan: Replace and monitor Hypothyroidism Normal TSH Continue levothyroxine (5) Bronchiectasis: Plan: History of bronchiectasis. Continue flutter valve monitor (6) History of leukemia: Plan: Reports history hairy cell leukemia 2002 treated [place] country and at [facility] in [place] In remission DVT Prophylaxis Lovenox SQ Code Status Full Code Admission and Anticipated Discharge Date Admission Date: August 29, 2023 Subjective Patient is seen and examined at bedside States having nasal congestion associated with rhinitis Also reports chronic cough but believes unchanged and attributes to bronchiectasis Still has mild headache, better when compared to time of admission Blood pressure stable Saturating well on room air Family at bedside Denies any chest pain, dyspnea, dizziness, nausea, vomiting, abdominal pain No other complaints Review of Systems Review of Systems: All systems reviewed & are unremarkable except as noted in Subjective Physical Exam Physical Exam: Physical Exam: Vitals signs as noted above General Appearance:Thin, no apparent distress Head: normocephalic, Atraumatic Eyes: normal inspection, EOMI Neck: supple, Trachea midline Respiratory/Chest: Normal breath sounds, CTA, No accessory muscle use Cardiovascular: S1, S2, No murmur Abdomen/GI:Soft, Non tender, Bowel sounds present Extremities/Musculoskeletal:normal inspection, no edema Neurologic/Psych:AAOX3, grossly no focal neurological deficits Skin: normal color, warm Results & Data Results & Data Vital Signs (Past 12 Hours) Vital Signs Temp Pulse Pulse Resp BP BP Pulse Ox 08/31/23 11:24 36.9 C 60 18 155/77 H 96 08/31/23 07:55 37.1 C 63 18 169/89 H 96 08/31/23 07:00 80 08/31/23 03:00 37 C 65 18 173/93 H 96 O2 Del Method 08/31/23 11:24 Room Air 08/31/23 07:55 Room Air 08/31/23 07:00 08/31/23 03:00 Room Air Laboratory Results Short CBC 08/31/23 Range/Units 04:30 WBC 4.09 L (4.8-10.8) K/ul Hgb 12.2 (12.0-16.0) g/dl Hct 35.6 L (37.0-47.0) % Plt Count 198 (130-400) K/uL BMP 08/31/23 04:30 Sodium 138 Potassium 3.6 Chloride 104 Carbon Dioxide 29 BUN 15 Creatinine 0.63 Glucose 89 Calcium 8.7
[2023-08-31] MEDS ORDERED: hydrALAZINE HCL 20 MG/ML VIAL IV PRN (17:00)
[2023-09-01] MEDS: ACETAMINOPHEN 325 MG TAB PO PRN (01:02)
[2023-09-01 04:50] LABS: Hematocrit (blood only) 35.9 % (37.0-47.0); Hemoglobin 12.4 g/dl (12.0-16.0); Mean Corpuscular Hemoglobin 30.5 pg (25.0-34.0); Mean Corpuscular Hgb Conc 34.5 g/dL (32.0-36.0); Mean Corpuscular Volume 88.4 fL (80.0-100.0); Mean Platelet Volume 9.4 fL (9.4-12.4); Platelet Count 220 K/uL (130-400); RDW Coefficient of Variation 12.9 % (11.5-14.5); RDW Standard Deviation 42.3 fL (36.4-46.3); Red Blood Count 4.06 M/uL (4.20-5.40); White Blood Count 5.13 K/ul (4.8-10.8)
[2023-09-01 05:08] LABS: BUN Creatinine Ratio 24.6 (10-20); C Reactive Protein 1.61 mg/dl (0-0.5); Calcium 8.8 mg/dl (8.6-10.3); Est GFR (Non-African American) 96.6 ml/min; Potassium 3.6 mmol/L (3.5-5.1)
--- NOTE | 2023-09-01 07:59 | XRay Report ---
XR chest 1V portable CLINICAL HISTORY: covid TECHNIQUE: Single frontal radiograph of the chest was obtained. Comparison: Comparison is made to chest radiograph 08/29/2023 FINDINGS: No lines and tubes are seen. The cardiomediastinal silhouette is normal. The lungs are clear. No evid ence of pleural effusion or pneumothorax. IMPRESSION: No acute abnormalities and in particular no radiographic evidence of pneumonia. ACT 112: Negative or not required by law. Electronically signed by: Sinan Arevalo M.D. 09/01/2023 7:57 AM
[2023-09-01] MEDS: LOSARTAN POTASSIUM 50 MG TAB PO SCH (08:51)
--- NOTE | 2023-09-01 13:17 | Hospitalist Progress Note ---
Date of Service September 01, 2023 Assessment & Plan (1) Hypertensive urgency: (2) Abnormal EKG: (3) Headache: Plan: Patient is 68 year old female with PMH hairy cell leukemia in 2002 in remission, hypothyroidism, bronchiectasis, HTN, history migraine headache presented to ER with complaint of headache, nausea and elevated blood pressure x 1 day. Hypertensive urgency Noncompliant with dyazide which she attributes to intolerance Normal TSH --ECHO: EF 60 to 65%. Right ventricle systolic function is normal. Left ventricle systolic function is normal. Left atrium is mildly dilated. Mild mitral regurgitation. Started on nifedipine, losartan Discontinue Dyazide given hyponatremia/intolerance Appreciate cardiology input Losartan dose increased to 100 mg daily Nifedipine dose increased to 60 mg daily Also added Aldactone 12.5 mg daily Monitor BP BP better Advised to follow-up with cardiology on discharge Chronic ongoing headache DD: Secondary to uncontrolled hypertension, migraine --CT head:No acute intracranial abnormality. --MRA Brain: Unremarkable MRA of the head. No intracranial aneurysm. No central vessel occlusion. --MRI brain: No acute intracranial findings. No intracranial mass or pathologic enhancement. Multiple white matter T2 hyperintense foci. These are nonspecific although statistically reflect small vessel disease. Pain control Given white matter changes, advised patient to follow-up with neurology as outpatient. Consider starting on magnesium, B2 supplements on discharge if patient agrees COVID19 Infection URI secondary to above --Biofire + for COVID 19 Isolation precautions Saturating well on room air CRP:1.6 Procalcitonin: 0.03 --CXR:No acute abnormalities and in particular no radiographic evidence of pneumonia. Flonase added Nebs as needed Conservative management Advised to monitor oxygen saturation at home using pulse oximeter Mild troponin elevation Likely demand ischemia secondary to uncontrolled hypertension and COVID Less likely ACS Echo s above Monitor (4) Hypokalemia: Plan: Replace and monitor Hypothyroidism Normal TSH Continue levothyroxine (5) Bronchiectasis: Plan: History of bronchiectasis. Continue flutter valve monitor (6) History of leukemia: Plan: Reports history hairy cell leukemia 2002 treated out of country and at [facility] in [place] In remission DVT Prophylaxis Lovenox SQ Code Status Full Code Disposition Home Admission and Anticipated Discharge Date Admission Date: August 29, 2023 Subjective Patient is seen and examined at bedside Nasal congestion is better admits to have mild cough headache improved Saturating well on room air Denies any chest pain, dyspnea, dizziness, nausea, vomiting, abdominal pain Prefers to be discharged home Review of Systems Review of Systems: All systems reviewed & are unremarkable except as noted in Subjective Physical Exam Physical Exam: Physical Exam: Vitals signs as noted above General Appearance:Thin, no apparent distress Head: normocephalic, Atraumatic Eyes: normal inspection, EOMI Neck: supple, Trachea midline Respiratory/Chest: Decreased breath sounds, CTA, No accessory muscle use Cardiovascular: S1, S2, No murmur Abdomen/GI:Soft, Non tender, Bowel sounds present Extremities/Musculoskeletal:normal inspection, no edema Neurologic/Psych:AAOX3, grossly no focal neurological deficits Skin: normal color, warm Results & Data Results & Data Vital Signs (Past 12 Hours) Vital Signs Temp Pulse Pulse Pulse Resp BP BP 09/01/23 11:31 164/98 H 09/01/23 11:30 69 13 09/01/23 10:00 67 24 09/01/23 08:00 67 15 09/01/23 07:30 36.8 C 64 18 164/92 H 09/01/23 04:00 36.8 C 80 22 151/84 H Pulse Ox O2 Del Method 09/01/23 11:31 09/01/23 11:30 97 Room Air 09/01/23 10:00 09/01/23 08:00 09/01/23 07:30 99 Room Air 09/01/23 04:00 96 Room Air Laboratory Results Short CBC 09/01/23 Range/Units 04:05 WBC 5.13 (4.8-10.8) K/ul Hgb 12.4 (12.0-16.0) g/dl Hct 35.9 L (37.0-47.0) % Plt Count 220 (130-400) K/uL BMP 09/01/23 04:05 Sodium 137 Potassium 3.6 Chloride 105 Carbon Dioxide 25 BUN 14 Creatinine 0.57 L Glucose 99 Calcium 8.8
--- NOTE | 2023-09-01 13:22 | Discharge Summary ---
Date of Service September 01, 2023 Admission HPI Per Admitting Provider Patient is 68 year old female with PMH hairy cell leukemia in 2002 in remission, hypothyroidism, bronchiectasis, HTN, history migraine headache presented to ER with complaint of headache and elevated blood pressure x 1 day. History obtained from patient as well as patient's daughter. Patient states history of migraines since she was 17 years old. Reports will get generalized headache with associated nausea, vomiting and photophobia. Patient states typically gets a migraine headache once a month and typically just rests and headaches will eventually resolve without OTC or Rx medication. She reports at least once weekly generalized headache that she does not feel is a migraine. Reports diagnosed with hypertension over 5 years ago. Was started on triamterene/HCTZ however patient states does not take and only takes when she feels her BP is elevated. Her prescription bottle is from 2020. Patient states when takes blood pressure at home it is usually 170s over 80s. Reports often will have headache, nausea, vomiting and then she will check her blood pressure and SBP's up to 200's and sometimes takes a triamterene/HCTZ. Patient states yesterday started with headache, nausea vomiting and she felt like her blood pressure was likely high. She reports taking her blood pressure at home and SBP's in the low 200s. She reports highest reading that she had was SBP of 240. Patient states she took 3 tablets of triamterene/HCTZ over the last 24 hours without relief. She states also reports some photophobia. Patient states she is unsure if headache is related to blood pressure and migraine at this time. She came to ER for further evaluation. Patient reports history of bronchiectasis and has chronic cough. She uses flutter valve daily. Patient denies any increased cough. Reports follows with Dr Mary Tra[place] for "functional medicine" which patient explains is more homeopathic approach. Currently lives in [place], [place] but does not have PCP locally. Denies fever/chills, diaphoresis, hematemesis, melena, hematochezia, diarrhea, constipation, dizziness, syncope, vision changes, neck pain, CP, SOB, orthopnea, palpitations, sore throat, rhinorrhea, abdominal pain, paresthesias, weakness, extremity weakness, extremity edema, rashes, urinary symptoms. Admission Exam Per Admitting Provider General: no acute distress, is currently drowsy from meds received in ER, WDWN Head: normocephalic, atraumatic Eyes: PERRL, EOM's intact, conjunctiva non-injected, anicteric ENT: normal inspection external ears, nose, mucous membranes moist Neck: supple, trachea midline Lungs: clear, no respiratory distress, no wheezing/rhonchi/rales CV: RRR, no murmur, no pretibial edema Abd: normal BS, soft, non-tender Ext: no cyanosis, no calf tenderness Neuro: +drowsy and frequently falling asleep but awakens to voice and is oriented x 3, no focal deficits noted, normal affect Skin: warm, dry Principal Diagnosis Hypertensive urgency COVID-19 infection Headache Discharge Data Allergies Allergy/AdvReac Type Severity Reaction Status Date / Time Penicillins Allergy Severe SWELLING Verified 08/29/23 15:33 Cipro Allergy Intermediate CHEST Verified 02/04/18 13:01 TIGHTNESS ciprofloxacin [Cipro] Allergy Intermediate CHEST Verified 08/29/23 15:33 TIGHTNESS levofloxacin Allergy Unknown HOSPITALIZE Unverified 08/29/23 15:33 D Sulfa (Sulfonamide Allergy Unknown vomiting, Unverified 08/29/23 15:33 Antibiotics) migraine gluten AdvReac Intermediate BLOATING, Unverified 08/29/23 15:33 FATIGUE Consultations 08/29/23 20:45 Consult Cardiology Routine Procedures Performed Laboratory Results WBC 5.13 K/ul (4.8-10.8) 09/01/23 04:05 RBC 4.06 M/uL (4.20-5.40) L 09/01/23 04:05 Hgb 12.4 g/dl (12.0-16.0) 09/01/23 04:05 Hct 35.9 % (37.0-47.0) L 09/01/23 04:05 MCV 88.4 fL (80.0-100.0) 09/01/23 04:05 MCH 30.5 pg (25.0-34.0) 09/01/23 04:05 MCHC 34.5 g/dL (32.0-36.0) 09/01/23 04:05 RDW Std Deviation 42.3 fL (36.4-46.3) 09/01/23 04:05 RDW Coeff of Fermin 12.9 % (11.5-14.5) 09/01/23 04:05 Plt Count 220 K/uL (130-400) 09/01/23 04:05 MPV 9.4 fL (9.4-12.4) 09/01/23 04:05 Immature Gran % (Auto) 0.3 % 08/29/23 11:00 Neut % (Auto) 93.2 % 08/29/23 11:00 Lymph % (Auto) 4.2 % 08/29/23 11:00 Barron % (Auto) 2.0 % 08/29/23 11:00 Eos % (Auto) 0.0 % 08/29/23 11:00 Baso % (Auto) 0.3 % 08/29/23 11:00 Neut # (Auto) 6.17 K/uL (1.40-6.50) 08/29/23 11:00 Lymph # (Auto) 0.28 K/uL (1.20-3.40) L 08/29/23 11:00 Barron # (Auto) 0.13 K/uL (0.11-0.59) 08/29/23 11:00 Eos # (Auto) 0.00 K/uL (0.00-0.50) 08/29/23 11:00 Baso # (Auto) 0.02 K/uL (0.00-0.20) 08/29/23 11:00 Immature Gran # (Auto) 0.02 K/uL (0.01-0.20) 08/29/23 11:00 Sodium 137 mmol/L (136-145) 09/01/23 04:05 Potassium 3.6 mmol/L (3.5-5.1) 09/01/23 04:05 Chloride 105 mmol/L (98-107) 09/01/23 04:05 Carbon Dioxide 25 mmol/L (21-32) 09/01/23 04:05 Anion Gap 7 (3-11) 09/01/23 04:05 BUN 14 mg/dl (6-23) 09/01/23 04:05 Creatinine 0.57 mg/dl (0.6-1.2) L 09/01/23 04:05 Est Cr Clr Drug Dosing 92.0 ml/min 09/01/23 04:05 Est GFR ( Amer) 112.0 ml/min 09/01/23 04:05 Est GFR (Non-Af Amer) 96.6 ml/min 09/01/23 04:05 BUN/Creatinine Ratio 24.6 (10-20) H 09/01/23 04:05 Glucose 99 mg/dl (70-99(Fasting)) 09/01/23 04:05 Estimat Average Glucose 108 mg/dl 08/30/23 02:30 Hemoglobin A1c 5.4 % (4.5-5.6) 08/30/23 02:30 Calcium 8.8 mg/dl (8.6-10.3) 09/01/23 04:05 Magnesium 2.1 mg/dl (1.7-2.4) 08/31/23 04:30 Total Bilirubin 0.8 mg/dl (0.2-1.0) 08/29/23 11:00 AST 28 U/L (13-39) 08/29/23 11:00 ALT 15 U/L (7-52) 08/29/23 11:00 Alkaline Phosphatase 68 U/L (34-104) 08/29/23 11:00 Troponin I High Sens 40.1 pg/ml (0-14) H 08/30/23 02:30 C-Reactive Protein 1.61 mg/dl (0-0.5) H 09/01/23 04:05 Total Protein 8.6 gm/dl (6.0-8.3) H 08/29/23 11:00 Albumin 4.9 gm/dl (3.4-5.0) 08/29/23 11:00 Globulin 3.7 gm/dl (2.5-4.0) 08/29/23 11:00 Albumin/Globulin Ratio 1.3 (0.9-2) 08/29/23 11:00 Triglycerides 77 mg/dl (0-150) 08/30/23 02:30 Cholesterol 203 mg/dl (0-200) H 08/30/23 02:30 LDL Cholesterol, Calc 119 mg/dl 08/30/23 02:30 VLDL Cholesterol, Calc 15 mg/dl (0-30) 08/30/23 02:30 HDL Cholesterol 69 mg/dl 08/30/23 02:30 Cholesterol/HDL Ratio 2.9 (0-5) 08/30/23 02:30 Procalcitonin 0.03 ng/ml (0-0.5) 09/01/23 04:05 TSH 3.409 uIu/ml (0.300-4.500) 08/29/23 11:00 Urine Color Yellow 08/29/23 Unknown Urine Appearance Clear (Clear) 08/29/23 Unknown Urine pH 5.5 (4.5-7.5) 08/29/23 Unknown Ur Specific [place] 1.019 (1.000-1.030) 08/29/23 Unknown Urine Protein 3+ (Negative) H 08/29/23 Unknown Urine Glucose (UA) Negative (Negative) 08/29/23 Unknown Urine Ketones 2+ (Negative) H 08/29/23 Unknown Urine Blood Negative (Negative) 08/29/23 Unknown Urine Nitrite Negative (Negative) 08/29/23 Unknown Urine Bilirubin Negative (Negative) 08/29/23 Unknown Urine Urobilinogen Negative (Negative) 08/29/23 Unknown Ur Leukocyte Esterase Negative (Negative) 08/29/23 Unknown Urine WBC (Auto) 1-5 /hpf (0-5) 08/29/23 Unknown Urine RBC (Auto) 0-4 /hpf (0-4) 08/29/23 Unknown U Hyaline Cast (Auto) 5-10 /lpf (0-5) H 08/29/23 Unknown U Epithel Cells (Auto) >30 /lpf (0-5) H 08/29/23 Unknown Urine Bacteria (Auto) Negative (Negative) 08/29/23 Unknown Adenovirus (PCR) Not Detected (NotDetected) 08/31/23 Unknown B. pertussis DNA (PCR) Not Detected (NotDetected) 08/31/23 Unknown B.parapertussis DNA PCR Not Detected (NotDetected) 08/31/23 Unknown C. pneumoniae DNA (PCR) Not Detected (NotDetected) 08/31/23 Unknown Coronavirus OC43 (PCR) Not Detected (NotDetected) 08/31/23 Unknown Coronavirus HKU1 (PCR) Not Detected (NotDetected) 08/31/23 Unknown Coronavirus 229E (PCR) Not Detected (NotDetected) 08/31/23 Unknown SARS-CoV-2 (PCR) DETECTED (NotDetected) A 08/31/23 Unknown Coronavirus NL63 (PCR) Not Detected (NotDetected) 08/31/23 Unknown Human Metapneumovir PCR Not Detected (NotDetected) 08/31/23 Unknown Influenza Type A (PCR) Not Detected (NotDetected) 08/31/23 Unknown Influenza Type B (PCR) Not Detected (NotDetected) 08/31/23 Unknown M. pneumoniae (PCR) Not Detected (NotDetected) 08/31/23 Unknown Parainfluenza 1 (PCR) Not Detected (NotDetected) 08/31/23 Unknown Parainfluenza 2 (PCR) Not Detected (NotDetected) 08/31/23 Unknown Parainfluenza 3 (PCR) Not Detected (NotDetected) 08/31/23 Unknown Parainfluenza 4 (PCR) Not Detected (NotDetected) 08/31/23 Unknown RSV (PCR) Not Detected (NotDetected) 08/31/23 Unknown Entero/Rhino (PCR) Not Detected (NotDetected) 08/31/[address] 08/29/23 10:[address] DOSE: 625.8 mGy.cm HISTORY: Headache TECHNIQUE: Multiaxial CT images of the head were performed without the use of intravenous contrast. Automated exposure control was utilized for this study. A dose lowering technique was utilized adhering to the principles of ALARA. Comparison: Head CT 02/01/2018. Findings: The paranasal sinuses and mastoid air cells are clear. The calvarium and skull base are intact. The ventricles and sulci are within normal limits. There is no mass, hematoma, midline shift, or acute infarct. Impression: No acute intracranial abnormality. ACT 112: Negative or not required by law. Electronically signed by: Brigido Dumas M.D. 08/29/2023 11:35 AM Brain MRI 08/30/23 11:24 MRI OF THE BRAIN WITHOUT AND WITH IV CONTRAST CLINICAL HISTORY: Headache. COMPARISON STUDY: Head CT August 29, 2023. TECHNIQUE: Utilizing a 1.5 Ondina magnet and dedicated coil, multiplanar, multiecho imaging of the brain was performed pre and postcontrast administration. IV administration of 6 mL of Gadavist contrast was uneventful. Thin cut T1 post contrast imaging was performed. FINDINGS: There are no foci of restricted diffusion to suggest acute infarct. No acute intracranial hemorrhage, midline shift or mass effect is present. Brain volume is normal. Ventricular system is normal. Basal cisterns are patent. Flow- voids for the major intracranial vessels are present. There is no intracranial mass or pathologic enhancement. Multiple white matter T2 hyperintense foci are present. Calvarial signal is normal. There is no evidence for sinusitis. There is no mastoid fluid. IMPRESSION: 1. No acute intracranial findings. 2. No intracranial mass or pathologic enhancement. 3. Multiple white matter T2 hyperintense foci. These are nonspecific although statistically reflect small vessel disease. ACT 112: Negative or not required by law. Electronically signed by: Pool Berry M.D. 08/30/2023 3:10 PM Head MRA 08/30/23 11:24 MRA OF THE INTRACRANIAL CIRCULATION WITHOUT CONTRAST CLINICAL HISTORY: Headache. COMPARISON STUDY: CTA of the head April 21, 2014. Head CT August 28, 2013. TECHNIQUE: Utilizing a 1.5 Ondina magnet and 3-D [id number] technique, unenhanced MRA of the intracranial circulation was obtained. FINDINGS: Please note that the MRI of the brain will be reported separately. The bilateral M1, M2, A1 and A2 segments are patent. There is no intracranial aneurysm. persistence of the posterior arteries is incidentally noted. Posterior circulation is intact. No stenosis within the intracranial vessels are identified. IMPRESSION: Unremarkable MRA of the head. No intracranial aneurysm. No central vessel occlusion. ACT 112: Negative or not required by law. Electronically signed by: Pool Berry M.D. 08/30/2023 2:36 PM Renal Artery Duplex 08/31/23 13:32 US duplex renal artery CLINICAL HISTORY: HTN TECHNIQUE: Real-time grayscale and color and spectral Doppler ultrasound imaging of the kidneys was performed. Comparison: None available at the time of this dictation. FINDINGS: Right kidney measures 11.2 cm. Left kidney measures 11.9 cm. RIGHT: The right kidney is normal in size, contour, cortical thickness, and echogenicity. No hydronephrosis is identified. No renal lesion is identified. Spectral analysis: Intrarenal resistive indices measure up to 0.56. Waveforms are normal in appearance.. Renal artery velocities and waveforms are normal. Renal vein patent. LEFT: The left kidney is normal in size, contour, cortical thickness and echogenicity. No hydronephrosis is identified. A cyst is noted measuring 1.9 cm Spectral analysis: Intrarenal resistive indices measure up to 0.65. Waveforms are normal in appearance. Renal artery velocities and waveforms are normal. Renal vein patent. Abdominal aorta: Patent. Peak systolic velocity 63.2 cm/s. Bladder: Normal. Bilateral ureteral jets present. Reference ranges: Normal main renal artery peak systolic velocity less than 180 cm/s. Ratio of renal artery PSV to aortic PSV less than 3.5 equates to normal or less than 60% stenosis. Only one of the two criteria listed needs to be met for diagnosis. Arcuate resistive indices about 0.8 are elevated. IMPRESSION: No evidence of renal artery stenosis. ACT 112: Negative or not required by law. Electronically signed by: Sinan Arevalo M.D. 08/31/2023 9:22 AM Chest X-Ray 09/01/23 07:00 XR chest 1V portable CLINICAL HISTORY: covid TECHNIQUE: Single frontal radiograph of the chest was obtained. Comparison: Comparison is made to chest radiograph 08/29/2023 FINDINGS: No lines and tubes are seen. The cardiomediastinal silhouette is normal. The hiram gs are clear. No evidence of pleural effusion or pneumothorax. IMPRESSION: No acute abnormalities and in particular no radiographic evidence of pneumonia. ACT 112: Negative or not required by law. Electronically signed by: Sinan Arevalo M.D. 09/01/2023 7:57 AM Ordered Studies 08/29/23 10:56 CT head/brain wo con Stat 08/30/23 11:24 MRI Angio Brain [MR angio head wo con] Urgent MRI Brain [MR brain wo/w con] Urgent 08/31/23 13:32 US duplex renal artery Routine Hospital Course (1) Hypertensive urgency: (2) Abnormal EKG: (3) Headache: Patient is 68 year old female with PMH hairy cell leukemia in 2002 in remission, hypothyroidism, bronchiectasis, HTN, history migraine headache presented to ER with complaint of headache, nausea and elevated blood pressure x 1 day. Hypertensive urgency Noncompliant with dyazide which she attributes to intolerance Normal TSH --ECHO: EF 60 to 65%. Right ventricle systolic function is normal. Left ventricle systolic function is normal. Left atrium is mildly dilated. Mild mitral regurgitation. Started on nifedipine, losartan Discontinue Dyazide given hyponatremia/intolerance Appreciate cardiology input Losartan dose increased to 100 mg daily Nifedipine dose increased to 60 mg daily Also added Aldactone 12.5 mg daily Monitor BP BP better Advised to follow-up with cardiology on discharge Chronic ongoing headache DD: Secondary to uncontrolled hypertension, migraine --CT head:No acute intracranial abnormality. --MRA Brain: Unremarkable MRA of the head. No intracranial aneurysm. No central vessel occlusion. --MRI brain: No acute intracranial findings. No intracranial mass or pathologic enhancement. Multiple white matter T2 hyperintense foci. These are nonspecific although statistically reflect small vessel disease. Pain control Given white matter changes, advised patient to follow-up with neurology as outpatient. Consider starting on magnesium, B2 supplements on discharge if patient agrees COVID19 Infection URI secondary to above --Biofire + for COVID 19 Isolation precautions Saturating well on room air CRP:1.6 Procalcitonin: 0.03 --CXR:No acute abnormalities and in particular no radiographic evidence of pneumonia. Flonase added Nebs as needed Conservative management Advised to monitor oxygen saturation at home using pulse oximeter Mild troponin elevation Likely demand ischemia secondary to uncontrolled hypertension and COVID Less likely ACS Echo s above Monitor (4) Hypokalemia: Replace and monitor Hypothyroidism Normal TSH Continue levothyroxine (5) Bronchiectasis: History of bronchiectasis. Continue flutter valve monitor (6) History of leukemia: Reports history hairy cell leukemia 2002 treated [place] country and at [facility] in [place] In remission DVT Prophylaxis Lovenox SQ Code Status Full Code Disposition Home Total Time Total Time Spent Total Time Spent (In Minutes): 55 minutes Discharge Plan Discharge Items Patient Disposition: Home - Self-Care Reason For Visit: HTN Discharge Diagnosis: Hypertensive urgency COVID-19 infection Headache Activity: Per Instructions section Exercise/Sports: Wait until after follow-up appointment Non-emergency contact: Primary Care Provider, [employer] Worker and Neurologist Call non-emergency contact if: you have any medication questions, your symptoms worsen, your pain is concerning for you and you have a fever Follow-up/Referrals: PCP,NO [Primary Care Provider] - Diet: Heart Healthy Addtl Attending Provider Instructions: Follow-up with your primary care physician on September 11, 2023 engaged in [facility] Follow-up with your anti air warfare operations officer Dr. Amin/Jemal Reid PA-C in 2 to 3 weeks Follow-up with your neurologist as advised for further evaluation of ongoing headache as advised -- Monitor your blood pressure regularly at home. Discuss with your physician for further adjustment of medications as needed. -- Monitor your oxygen saturation using pulse oximeter as advised. Seek immediate medical attention if your symptoms reoccur or worsen Please take all medications as instructed on discharge list below. Please call if you have any questions or problems. You can reach a [facility] hospitalist on duty at [facility] 24 hours a day by calling [phone] Home Isolation COVID-19 Instructions The following information about Home Isolation is from the CDC Website: https://www.cdc.gov/coronavirus/2019-ncov/hcp/sazxhbeh-ixlxcvl-xlfjxt.html Stay home except to get medical care People who are mildly ill with COVID-19 are able to isolate at home during their illness. You should restrict activities outside your home, except for getting medical care. Do not go to work, school, or public areas. Avoid using public transportation, ride-sharing, or taxis. Separate yourself from other people and animals in your home People: As much as possible, you should stay in a specific room and away from ot her people in your home. Also, you should use a separate bathroom, if available. Animals: You should restrict contact with pets and other animals while you are sick with COVID-19, just like you would around other people. Although there have not been reports of pets or other animals becoming sick with COVID-19, it is still recommended that people sick with COVID-19 limit contact with animals until more information is known about the virus. When possible, have another member of your household care for your animals while you are sick. If you are sick with COVID-19, avoid contact with your pet, including petting, snuggling, being kissed or licked, and sharing food. If you must care for your pet or be around animals while you are sick, wash your hands before and after you interact with pets and wear a face mask. Call ahead before visiting your doctor If you have a medical appointment, call the healthcare provider and tell them that you have or may have COVID-19. This will help the healthcare providers office take steps to keep other people from getting infected or exposed. Wear a face mask You should wear a face mask when you are around other people (e.g., sharing a room or vehicle) or pets and before you enter a healthcare providers office. If you are not able to wear a face mask (for example, because it causes trouble breathing), then people who live with you should not stay in the same room with you, or they should wear a face mask if they enter your room. Cover your coughs and sneezes Cover your mouth and nose with a tissue when you cough or sneeze. Throw used tissues in a lined trash can. Immediately wash your hands with soap and water for at least 20 seconds or, if soap and water are not available, clean your hands with an alcohol-based hand ore crusher that contains at least 60% alcohol. Clean your hands often Wash your hands often with soap and water for at least 20 seconds, especially after blowing your nose, coughing, or sneezing; going to the bathroom; and before eating or preparing food. If soap and water are not readily available, use an alcohol-based hand ore crusher with at least 60% alcohol, covering all surfaces of your hands and rubbing them together until they feel dry. Soap and water are the best option if hands are visibly dirty. Avoid touching your eyes, nose, and mouth with unwashed hands. Avoid sharing personal household items You should not share dishes, drinking glasses, cups, eating utensils, towels, or bedding with other people or pets in your home. After using these items, they should be washed thoroughly with soap and water. Clean all high-touch surfaces everyday High touch surfaces include counters, tabletops, doorknobs, bathroom fixtures, toilets, phones, keyboards, tablets, and bedside tables. Also, clean any surfaces that may have blood, stool, or body fluids on them. Use a household cleaning spray or wipe, according to the label instructions. Labels contain instructions for safe and effective use of the cleaning product including pre cautions you should take when applying the product, such as wearing gloves and making sure you have good ventilation during use of the product. Monitor your symptoms Seek prompt medical attention if your illness is worsening (e.g., difficulty breathing).Beforeseeking care, call your healthcare provider and tell them that you have, or are being evaluated for, COVID-19. Put on a face mask before you enter the facility. These steps will help the healthcare providers office to keep other people in the office or waiting room from getting infected or exposed. Ask your healthcare provider to call the local or state health department. Persons who are placed under active monitoring or facilitated self- monitoring should follow instructions provided by their local health department or occupational health professionals, as appropriate. When working with your local health department check their available hours. If you have a medical emergency and need to call 911, notify the dispatch personnel that you have, or are being evaluated for COVID-19. If possible, put on a face mask before emergency medical services arrive. Discontinuing home isolation Patients with confirmed COVID-19 should remain under home isolation precautions until the risk of secondary transmission to others is thought to be low. The decision to discontinue home isolation precautions should be made on a [id number] basis, in consultation with healthcare providers and [facility] health departments. Pending Studies at Discharge: No Stand-Alone Forms: My [facility], Smoking Cessation Medications and DC Order Prescriptions: New losartan 100 mg tablet 100 mg PO QAM Qty: 30 0RF nifedipine 60 mg tablet extended release 60 mg PO QAM Qty: 30 0RF spironolactone 25 mg Tablet 12.5 mg PO DAILY Qty: 30 0RF Saline Mist 0.65 % Aerosol,Combes 2 spray NA TID PRNQty: 0 0RF fluticasone propionate 50 mcg/actuation Combes,Suspension 1 spray NA DAILY Qty: 0 0RF Continued multivitamin Tablet 1 tab PO DAILY omega-3 fatty acids [Fish Oil Concentrate] 1,000 mg Capsule 0 mg PO DAILY liothyronine 25 mcg Tablet 20 mcg PO DAILY Rx Instructions: Patient stares she thinks it is 20 mcg vitamin B complex Tablet 1 tab PO DAILY Held potassium chloride [Klor-Con] 20 mEq packet 20 meq PO MOWEFR Hold Instructions: Hold taking until further instructions from your primary care physician Discontinued triamterene-hydrochlorothiazid 37.5-25 mg Tablet 1 tab PO DAILY PRN (Reason: .High bp) Rx Instructions: Old script filled in 2020 Discharge Orders: Discharge Order (Routine); Ordered 09/01/23 Ordered By: Juan Pablo Garcia Admission Data Admit Date/Time: 08/29/23 15:06 Attending Provider: Juan Pablo Garcia Admit Provider: Olimpia Martel Primary Care Provider: PCP,NO Other Providers: Marbella Amin
== END 2023-09-01 14:00 | disposition home or self-care (01) | DRG 304 ==
LOC: ED 10:02 → 4W 15:06 → SUATTDRO 15:06 → 4W 16:51 → 1E 08-31 15:50

== ENCOUNTER 2023-11-15 09:54 | Inpatient (IN) ==
[2023-11-15 10:41] LABS: Hematocrit (blood only) 45.7 % (37.0-47.0); Hemoglobin 15.6 g/dl (12.0-16.0); Mean Corpuscular Hemoglobin 30.2 pg (25.0-34.0); Mean Corpuscular Hgb Conc 34.1 g/dL (32.0-36.0); Mean Corpuscular Volume 88.4 fL (80.0-100.0); Mean Platelet Volume 9.2 fL (9.4-12.4); Platelet Count 229 K/uL (130-400); RDW Coefficient of Variation 12.5 % (11.5-14.5); RDW Standard Deviation 40.7 fL (36.4-46.3); Red Blood Count 5.17 M/uL (4.20-5.40); White Blood Count 5.43 K/ul (4.8-10.8)
[2023-11-15] MEDS: NITROGLYCERIN SL 0.4 MG/TAB TAB SL STA (10:44)
[2023-11-15] MEDS: ONDANSETRON INJ 2 MG/ML 2 ML VIAL IV STA (10:44)
[2023-11-15 10:52] LABS: iSTAT Creatinine 0.7 mg/dl (0.6-1.3); iSTAT Hemoglobin 15.3 g/dl (12.0-16.0); iSTAT Ionized Calcium 1.14 mmol/l (1.12-1.32); iSTAT Potassium 3.3 mmol/L (3.3-5.0)
[2023-11-15 11:04] LABS: BUN Creatinine Ratio 18.9 (10-20); Calcium 10.1 mg/dl (8.6-10.3); Creatinine Clr Calc Pharmacy 68.5 ml/min; Est GFR (African American) 97.8 ml/min; Est GFR (Non-African American) 84.4 ml/min; Potassium 3.3 mmol/L (3.5-5.1)
--- NOTE | 2023-11-15 11:05 | CT Scan Report ---
CT SCAN OF THE BRAIN WITHOUT IV CONTRAST CLINICAL HISTORY: Headache. COMPARISON STUDY: CT of the brain dated 08/29/2023. MRI of the brain dated 08/30/2023. TECHNIQUE: Unenhanced axial CT scan of the brain is performed from the vertex to the skull base. A do se lowering technique was utilized adhering to the principles of ALARA. CT DOSE: 663.26 mGy.cm FINDINGS: Brain parenchyma: There is age-related involutional change noting mild subcortical and periventricula r microangiopathic disease. There is no hemorrhage, mass effect, or evidence of acute territorial isc hemia by CT criteria. Velázquez-white matter differentiation is preserved. No extra-axial fluid collection is seen. Ventricles, sulci, cisterns: Prominent secondary to involutional change. Intracranial vasculature: There is atherosclerotic calcification of the cavernous carotid and vertebr al arteries. Calvarium: Unremarkable. Sinuses and mastoids: The visualized paranasal sinuses are clear. The mastoid air cells are well pneu matized. Orbits: The bony orbits are grossly intact. IMPRESSION: No acute intracranial abnormality. ACT 112: Negative or not required by law. Electronically signed by: Jean Carlos Colunga M.D. 11/15/2023 11:04 AM
[2023-11-15 11:10] LABS: Troponin I High Sensitivity 14.6 pg/ml (0-14)
--- NOTE | 2023-11-15 11:15 | XRay Report ---
SINGLE VIEW CHEST CLINICAL HISTORY: Atypical chest pain. FINDINGS: 2 AP, portable, upright chest radiographs are compared to study dated 09/01/2023. The cardio mediastinal silhouette is unremarkable noting atherosclerotic calcification of the thoracic aorta. Ch ronic interstitial thickening is similar to previous. There is mild bibasilar scarring/atelectasis. N o airspace consolidation or pleural effusion is identified. No pneumothorax is seen. The skeletal str uctures are osteopenic. The bony thorax is grossly intact. IMPRESSION: No active disease in the chest. ACT 112: Negative or not required by law. Electronically signed by: Jean Carlos Colunga M.D. 11/15/2023 11:14 AM
[2023-11-15 11:38] LABS: Basophils # (auto) 0.01 K/uL (0.00-0.20); Basophils % (auto) 0.2 %; Immature Granulocytes # (auto) 0.02 K/uL (0.01-0.20); Immature Granulocytes % (auto) 0.4 %; Lymphocytes # (auto) 0.38 K/uL (1.20-3.40); Monocytes # (auto) 0.06 K/uL (0.11-0.59); Monocytes % (auto) 1.1 %; Neutrophils # (auto) 4.96 K/uL (1.40-6.50); Neutrophils % (auto) 91.3 %; RBC Morphology Unremarkable
[2023-11-15 11:40] LABS: Partial Thromboplastin Time 26 Seconds (21-31); Prothrombin Time 10.8 Seconds (9.0-12.0)
--- NOTE | 2023-11-15 11:51 | History & Physical Report ---
Date of Service November 15, 2023 Assessment & Plan (1) Hypertensive emergency without congestive heart failure: (2) Headache: (3) H/O medication noncompliance: (4) Vomiting: Plan: This is a 68 year old female with PMH or poorly controlled HTN, hypothyroidism, hairy cell leukemia in 2002 in remission, bronchiectasis, history migraine headache presented to ER with complaint of headache, nausea and elevated blood pressure x 1 day. Hypertensive emergency Presenting with nausea, vomiting, headache x 1 day Initial BP 243/119, improved to 160/115 after 0.4 mg sublingual ntg Initial trop 14.6, no chest pain, EKG pending CT head without acute abnormalities, CXR without acute disease Similar admission in August - with EF 60-65%. Right ventricle systolic function is normal. Left ventricle systolic function is normal. Left atrium is mildly dilated. Mild mitral regurgitation Was seen by cards and Losartan dose increased to 100 mg daily, Nifedipine dose increased to 60 mg daily and was started on Aldactone 12.5 mg daily - only took these for 1 week after discharge due to them making her feel cognitively "slow" Takes BP at home, average SBP 170 but not unusual to be above 200 Started to feel lightheaded with SBP of 160 so hold off on resuming home meds for now Monitor on tele, add PRNs antihypertensives for now Appreciate cardiology guidance with medications Nausea/vomiting -> resolved with ntg, improved BP (5) Bronchiectasis: Plan: At baseline, room air (6) History of leukemia: Plan: 2002, s/p chemo, in remission (7) Hypothyroidism: Plan: Continue liothyronine DVT Ppx: SQ lovenox Code status: FULL PCP: Akil Dispo: Admitted to PCU Patient seen in collaboration with Dr. Munoz. Please see addendum. I spent a total of 75 minutes coordinating, documenting, and providing care for this patient excluding time spent in the performance of separately billed services. History of Present Illness Chief Complaint: elevated BP Primary Care Provider: NO PCP This is a 68yo F with PMH of uncontrolled HTN, bronchiectasis, history of toxic diffuse goiter, hairy cell leukemia in 2002 in remission and other medical problems listed below who presents with elevated blood pressure on home readings. Endorses high blood pressure for 5 years. Over the past few days, knows her blood pressure has been higher because she has a headache, nausea and decreased appetite. Threw up at home for 24 hours prior to arrival. Was admitted for hypertensive urgency this past August and was started on losartan 100mg daily and nifedipine 60mg daily. ECHO at that time showed EF 60-65%, right ventricle systolic function is normal. Left ventricle systolic function is normal. Left atrium is mildly dilated. Mild mitral regurgitation. States she felt worse when taking the green one and only took the two meds for 1 week after previous admission in August before stopping them. 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 Has a blood pressure cuff at home and top number is 200 but feels "good and normal" is when the top number is around 179. Lives alone. Only meds she is taking besides supplements is liothyronine. No F/C, CP, SOB, abd pain, dysuria, diarrhea or constipation. Allergies Allergy/AdvReac Type Severity Reaction Status Date / Time Penicillins Allergy Severe SWELLING Verified 08/29/23 15:33 Cipro Allergy Intermediate CHEST Verified 02/04/18 13:01 TIGHTNESS ciprofloxacin [Cipro] Allergy Intermediate CHEST Verified 08/29/23 15:33 TIGHTNESS levofloxacin Allergy Unknown HOSPITALIZE Unverified 08/29/23 15:33 D Sulfa (Sulfonamide Allergy Unknown vomiting, Unverified 08/29/23 15:33 Antibiotics) migraine gluten AdvReac Intermediate BLOATING, Unverified 08/29/23 15:33 FATIGUE Home Medications Medication Instructions Recorded Confirmed Type liothyronine 25 mcg tablet 20 mcg PO DAILY 08/29/23 11/15/23 History multivitamin 1 tab PO DAILY 08/29/23 11/15/23 History omega-3 fatty acids 1,000 mg 0 mg PO DAILY 08/29/23 11/15/23 History capsule potassium chloride 20 mEq oral 20 meq PO MOWEFR 08/29/23 11/15/23 History packet (Klor-Con) vitamin B complex 1 tab PO DAILY 08/29/23 11/15/23 History fluticasone propionate 50 1 spray NA DAILY #0 grams 09/01/23 11/15/23 Rx mcg/actuation nasal spray,suspension losartan 100 mg tablet 100 mg PO QAM #30 tabs 09/01/23 11/15/23 Rx nifedipine 60 mg tablet,extended 60 mg PO QAM #30 tabs 09/01/23 11/15/23 Rx release sodium chloride 0.65 % nasal spray 2 spray NA TID PRN #0 mL 09/01/23 11/15/23 Rx aerosol (Saline Mist) spironolactone 25 mg tablet 12.5 mg (1/2 x 25 mg) PO DAILY #30 09/01/23 11/15/23 Rx tabs Past Med/Surg History Problem List (Updated 11/15/23 @ 14:19 by Penelope Munoz MD) Hypertensive emergency without congestive heart failure Elevated troponin (Acute) H/O medication noncompliance Headache (Acute) Vomiting (Acute) Hypertensive urgency (Acute) Hypothyroidism History of leukemia 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 Bronchiectasis (Acute) Hypertension (Chronic) Dyspnea, unspecified (Acute) Fall (Acute) Fracture of fifth metacarpal bone of right hand (Acute) Generalized weakness (Acute) Headache (Acute) Hypokalemia (Acute) Hypokalemia (Acute 04/15/13) Nasal contusion (Acute) Pyelonephritis (Acute) Pyelonephritis, acute (Acute 04/15/13) Sepsis (Acute 04/15/13) Vomiting (Acute) Vomiting (Acute) Surgical History History of abdominoplasty Family History Brother Heart disease fatal [place] age 56 Mother FH: brain aneurysm Hypertension Grandfather (Paternal) Heart disease Grandmother (Maternal) Hypertension Other Cancer Social History Smoking Status: Former smoker Tobacco Type: Cigarettes Second Hand Exposure: No; Do You Dip or Chew Tobacco: No; Hx Alcohol Use: Yes Alcohol Intake Frequency: 2-4 x/Month Hx Substance Use: No Preferred Language: Polish Communication Ability: Effective 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 Physical Exam Physical Exam: Please see Dr. Munoz' addendum for physical exam. Results & Data Results & Data Vital Signs (Past 12 Hours) Vital Signs Temp Pulse Pulse Resp BP BP Pulse Ox 11/15/23 10:38 85 11/15/23 10:31 77 19 222/129 H 95 11/15/23 10:31 11/15/23 10:04 36.7 C 86 18 243/119 H 97 O2 Del Method 11/15/23 10:38 11/15/23 10:31 Room Air 11/15/23 10:31 Room Air 11/15/23 10:04 Room Air Laboratory Results Short CBC 11/15/23 Range/Units 10:25 WBC 5.43 (4.8-10.8) K/ul Hgb 15.6 (12.0-16.0) g/dl Hct 45.7 (37.0-47.0) % Plt Count 229 (130-400) K/uL BMP 11/15/23 10:25 Sodium 135 L Potassium 3.3 L Chloride 97 L Carbon Dioxide 28 BUN 14 Creatinine 0.74 Glucose 159 H Calcium 10.1 Diagnostic Findings Chest X-Ray 11/15/23 10:27 SINGLE VIEW CHEST CLINICAL HISTORY: Atypical chest pain. FINDINGS: 2 AP, portable, upright chest radiographs are compared to study dated 09/01/2023. The cardiomediastinal silhouette is unremarkable noting atherosclerotic calcification of the thoracic aorta. Chronic interstitial thickening is similar to previous. There is mild bibasilar scarring/atelectasis. No airspace consolidation or pleural effusion is identified. No pneumothorax is seen. The skeletal structures are osteopenic. The bony thorax is grossly inta ct. IMPRESSION: No active disease in the chest. ACT 112: Negative or not required by law. Electronically signed by: Jean Carlos Colunga M.D. 11/15/2023 11:[address] 11/15/23 10:28 CT SCAN OF THE BRAIN WITHOUT IV CONTRAST CLINICAL HISTORY: Headache. COMPARISON STUDY: CT of the brain dated 08/29/2023. MRI of the brain dated 08/30/2023. TECHNIQUE: Unenhanced axial CT scan of the brain is performed from the vertex to the skull base. A dose lowering technique was utilized adhering to the principles of ALARA. CT DOSE: 663.26 mGy.cm FINDINGS: Brain parenchyma: There is age-related involutional change noting mild subcortical and periventricular microangiopathic disease. There is no hemorrhage, mass effect, or evidence of acute territorial ischemia by CT criteria. Velázquez-white matter differentiation is preserved. No extra-axial fluid collection is seen. Ventricles, sulci, cisterns: Prominent secondary to involutional change. Intracranial vasculature: There is atherosclerotic calcification of the cavernous carotid and vertebral arteries. Calvarium: Unremarkable. Sinuses and mastoids: The visualized paranasal sinuses are clear. The mastoid air cells are well pneumatized. Orbits: The bony orbits are grossly intact. IMPRESSION: No acute intracranial abnormality. ACT 112: Negative or not required by law. Electronically signed by: Jean Carlos Colunga M.D. 11/15/2023 11:04 AM ECG Additional Comments: EKG pending Supervising Physician Co-Signing Physician Notes I have seen and discussed the case with the collaborating advanced practitioner. I agree with the above H&P. I have reviewed and confirmed the patients medical history, the findings on physical examination, and the patients diagnosis and treatment plan with Jourdan MENDOZA and agree with the information documented. In short, Ms. Ha is a 68 year old woman with uncontrolled HTN, hypothyroidism, hairy cell leukemia in 2002 in remission, bronchiectasis, history migraine headache who is admitted for hypertensive emergency marked by elevated troponin and severe headache. Patient was given nitro on arrival with notable drop in BP from 243 to 159, marked by dizziness. 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 She states in particular the "green" pill causes the most problem. This seems to correlate with the losartan 100mg tab. GENERAL APPEARANCE: AxOx4, generally well-appearing female, mild discomfort reported HEENT: NC, AT. MMM. EOMI, clear conjunctiva, oropharynx clear. NECK: Supple without lymphadenopathy. No stiffness or restricted ROM. HEART: Normal rate and regular rhythm, normal S1/S1, no m/r/g LUNGS: CTAB, moving air well. No crackles or wheezes are heard. ABDOMEN: Soft, nontender, nondistended with good bowel sounds heard. BACK: No CVAT, no obvious deformity. EXTREMITIES: Without cyanosis, clubbing or edema. NEUROLOGICAL: Grossly nonfocal. Alert and oriented, moving all 4 extremities. CN not formally tested but appear grossly intact. Skin: Warm and dry without any rash. #Hypertensive emergency CT head stable, no ICH or intracranial process reports med noncompliance, stating that the "green pill" which is losartan 100mg makes her feel "delayed in processing" states home pressures range in 200-210s, feels "good" at 170s, feels dizzy at 130s -Drastic drop in pressure from 240 to 150s with nitro with associated dizziness Goal pressure in the next 4-6 hours is ~180, with plan for better control in next 24 hours -Start nifedipine 60mg po -Hold losartan given noncompliance 2/2 side effects with hopes to utilize other oral regimen better tolerated by patient -Labetolol 5mg IV q4 for SBP>180 -Monitor on tele Cards consult #Elevated troponin likely demand 2/2 to uncontrolled htn, trend to peak optimize bp control rest of plan as above I spent a total of 35 minutes coordinating, documenting, and providing care for this patient excluding time spent in the performance of separately billed services. All of the aforementioned completed outside of collaborating with the assigned advanced practitioner for a full treatment plan. I have reviewed the advanced practitioner's documentation, and I agree with, and take responsibility for the plan of care (2) Headache Headache type: other vascular headache Qualified Code(s): G44.1 - Vascular headache, not elsewhere classified (4) Vomiting Nausea presence: with nausea Vomiting type: unspecified Qualified Code(s): R11.2 - Nausea with vomiting, unspecified
[2023-11-15] MEDS: NIFEdipine EXTENDED REL 30 MG TABCR PO SCH (12:06)
[2023-11-15] MEDS: LOSARTAN POTASSIUM 50 MG TAB PO SCH (12:06)
[2023-11-15] MEDS: SPIRONOLACTONE 25 MG TAB PO SCH (12:06)
--- NOTE | 2023-11-15 13:03 | Emergency Department Note ---
History of Present Illness General Chief complaint: Hypertension Stated complaint: HIGH BP Time Seen by Provider: 11/15/23 10:08 Source: patient and family History of Present Illness Provider complaint: Hypertension Maximum Pain Intensity: 10 68-year-old female presents emergency department for hypertension. Patient reports that for the last days she has been having headache and took her blood pressure was very elevated. Patient reports she has been having nausea and vomiting. No hematemesis coffee-ground emesis or bilious vomiting. No chest pain or difficulty breathing. Patient does report that she has a history of hypertension but states she has not taken any of her medications. She states she chooses not to take any of her medications because they make her not feel good and she thinks she is allergic to them. She reports that she feels no difficulty breathing. Home Medications Medication Instructions Recorded Confirmed Type liothyronine 25 mcg tablet 20 mcg PO DAILY 08/29/23 11/15/23 History multivitamin 1 tab PO DAILY 08/29/23 11/15/23 History omega-3 fatty acids 1,000 mg 0 mg PO DAILY 08/29/23 11/15/23 History capsule potassium chloride 20 mEq oral 20 meq PO MOWEFR 08/29/23 11/15/23 History packet (Klor-Con) vitamin B complex 1 tab PO DAILY 08/29/23 11/15/23 History fluticasone propionate 50 1 spray NA DAILY #0 grams 09/01/23 11/15/23 Rx mcg/actuation nasal spray,suspension losartan 100 mg tablet 100 mg PO QAM #30 tabs 09/01/23 11/15/23 Rx nifedipine 60 mg tablet,extended 60 mg PO QAM #30 tabs 09/01/23 11/15/23 Rx release sodium chloride 0.65 % nasal spray 2 spray NA TID PRN #0 mL 09/01/23 11/15/23 Rx aerosol (Saline Mist) spironolactone 25 mg tablet 12.5 mg (1/2 x 25 mg) PO DAILY #30 09/01/23 11/15/23 Rx tabs Allergies Allergy/AdvReac Type Severity Reaction Status Date / Time Penicillins Allergy Severe SWELLING Verified 08/29/23 15:33 Cipro Allergy Intermediate CHEST Verified 02/04/18 13:01 TIGHTNESS ciprofloxacin [Cipro] Allergy Intermediate CHEST Verified 08/29/23 15:33 TIGHTNESS levofloxacin Allergy Unknown HOSPITALIZE Unverified 08/29/23 15:33 D Sulfa (Sulfonamide Allergy Unknown vomiting, Unverified 08/29/23 15:33 Antibiotics) migraine gluten AdvReac Intermediate BLOATING, Unverified 08/29/23 15:33 FATIGUE Past Med/Surg History Problem List (Updated 11/15/23 @ 13:25 by Andrei Mackey MD) Elevated troponin (Acute) H/O medication noncompliance Headache (Acute) Vomiting (Acute) Hypertensive urgency (Acute) Hypothyroidism History of leukemia 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 Bronchiectasis (Acute) Hypertension (Chronic) Dyspnea, unspecified (Acute) Fall (Acute) Fracture of fifth metacarpal bone of right hand (Acute) Generalized weakness (Acute) Headache (Acute) Hypokalemia (Acute) Hypokalemia (Acute 04/15/13) Nasal contusion (Acute) Pyelonephritis (Acute) Pyelonephritis, acute (Acute 04/15/13) Sepsis (Acute 04/15/13) Vomiting (Acute) Vomiting (Acute) Surgical History History of abdominoplasty Family History Brother Heart disease fatal [place] age 56 Mother FH: brain aneurysm Hypertension Grandfather (Paternal) Heart disease Grandmother (Maternal) Hypertension Other Cancer Social History Smoking Status: Former smoker Tobacco Type: Cigarettes Second Hand Exposure: No; Do You Dip or Chew Tobacco: No; Hx Alcohol Use: Yes Alcohol Intake Frequency: 2-4 x/Month Hx Substance Use: No Preferred Language: Mosotho Communication Ability: Effective Religion Teacher Required: No Beliefs That Will Affect Care: None Current Living Situation: Family Current Living Situation Comment: Living with daughter Feels Safe at Home: Yes Assistive Devices: None Physical Exam Vital Signs Vital Signs - 24 hr 11/15/23 10:04 11/15/23 10:31 11/15/23 10:31 Temperature 36.7 C Temperature Source Temporal Artery Scan Pulse Rate 86 Pulse Rate [Apical] 77 Respiratory Rate 18 19 Respiratory Effort / Characteristics Non-Labored Spontaneous Respiratory Depth Normal Respiratory Pattern Regular Blood Pressure 243/119 H Blood Pressure [Left Arm] 222/129 H Blood Pressure Mean 160 Blood Pressure Mean [Left Arm] 160 Pulse Oximetry 97 95 Oxygen Delivery Method Room Air Room Air Room Air Sepsis Recent Fever Within 48 Hours No Sepsis New/Unexplained Change in Mental Status No Sepsis Action Taken by Nursing No Action Required 11/15/23 10:38 11/15/23 12:00 Temperature Temperature Source Pulse Rate 85 Pulse Rate [Apical] 76 Respiratory Rate 21 Respiratory Effort / Characteristics Non-Labored Spontaneous Respiratory Depth Normal Respiratory Pattern Regular Blood Pressure Blood Pressure [Left Arm] 160/115 H Blood Pressure Mean Blood Pressure Mean [Left Arm] 130 Pulse Oximetry 92 Oxygen Delivery Method Room Air Sepsis Recent Fever Within 48 Hours Sepsis New/Unexplained Change in Mental Status Sepsis Action Taken by Nursing Physical Exam GENERAL: She is oriented to person, place, and time. She appears well-developed and well-nourished. She does not appear distressed. HENT: Exam performed. -Head: Normocephalic and atraumatic. -Right Ear: External ear normal. No mastoid erythema -Left Ear: External ear normal. No mastoid erythema -Mouth/Throat: The oropharynx is clear and moist. No trismus in the jaw. No dental abscesses or uvula swelling. No oropharyngeal exudate or tonsillar abscesses. EYES: Conjunctivae and EOM are normal. Pupils are equal, round, and reactive to light. Right eye exhibits no discharge. Left eye exhibits no discharge. No scleral icterus. NECK: Normal range of motion. Neck supple. No JVD present. No rigidity. No tracheal deviation and normal range of motion present. No Brudzinski's sign and no Kernig's sign noted. CV: Normal rate, regular rhythm, normal heart sounds and intact distal pulses. There is no peripheral edema. Palpable radial pulses bue. PULM/CHEST: Effort normal and breath sounds normal. No respiratory distress. No stridor. She has no wheezes. She has no rales. -Chest Wall: She exhibits no tenderness. ABD: The abdomen is soft.She has no distension. No mass is present. There is no tenderness. There is no rebound, no guarding, no Madrid's sign and no tenderness at McBurney's point. Rovsig negative MUSC/SKEL: Normal range of motion. There is no peripheral edema, tenderness or deformity. LYMPH: No cervical adenopathy. NEURO: She is alert and oriented to person, place, and time. She has normal strength. No cranial nerve deficit or sensory deficit. Coordination and gait normal. GCS eye subscore is 4. GCS verbal subscore is 5. GCS motor subscore is 6. Cerebellar tests wnl. SKIN: Skin is warm and dry. She is not diaphoretic. PSYCH: She has a normal mood and affect. Behavior is normal. Judgment and thought content normal. Course Course 1008: The patient was evaluated in room A4. A complete history and physical exam was performed Cardiac monitoring: An order was placed for continuous cardiac monitoring. The monitor shows a rate of 80 with sinus rhythm interpreted by ks 1140: Imaging within normal limits. Labs show an elevated troponin. [facility]. Administered Medications Discontinued Medications Losartan Potassium (Losartan Potassium 50 Mg Tab) 100 mg PO QAM [facility] Stop: 12/15/23 11:44 Last Admin: 11/15/23 12:06 Dose: Not Given Documented By: Nifedipine (Nifedipine Extended Rel 30 Mg Tabcr) 60 [facility] [place] Stop: 12/15/23 11:44 Last Admin: 11/15/23 12:06 Dose: Not Given Documented By: Nitroglycerin (Nitroglycerin Sl 0.4 Mg/Tab Tab) 0.4 mg SL NOW STA Stop: 11/15/23 10:28 Last Admin: 11/15/23 10:44 Dose: 0.4 mg Documented By: Ondansetron HCl (Ondansetron Inj 2 Mg/Ml 2 Ml Vial) 4 mg IV NOW STA Stop: 11/15/23 10:28 Last Admin: 11/15/23 10:44 Dose: 4 mg Documented By: Potassium Chloride (Potassium Chloride Crtab 20 Meq Tabcr) 40 meq PO NOW STA Stop: 11/15/23 12:16 Last Admin: 11/15/23 13:12 Dose: 40 meq Documented By: Spironolactone (Spironolactone 25 Mg Tab) 12.5 mg PO DAILY [facility] Stop: 12/15/23 11:44 Last Admin: 11/15/23 12:06 Dose: Not Given Documented By: Medical Decision Making Medical Records Attestation: I reviewed the patient's medical records. External medical records reviewed. Patient was admitted from August 26 09 August 2023 for similar episode.Patient was supposed to be on nifedipine and losartan and has a chronic ongoing headache according to the discharge summary. Laboratory Data Attestation: I reviewed the patient's lab results. 11/15/23 10:25 11/15/23 10:25 Lab Results 11/15/23 11/15/23 Range/Units 10:25 10:39 WBC 5.43 (4.8-10.8) K/ul RBC 5.17 (4.20-5.40) M/uL Hgb 15.6 (12.0-16.0) g/dl POC Hgb 15.3 (12.0-16.0) g/dl Hct 45.7 (37.0-47.0) % POC Hct 45 (37-47) % MCV 88.4 (80.0-100.0) fL MCH 30.2 (25.0-34.0) pg MCHC 34.1 (32.0-36.0) g/dL RDW Std Deviation 40.7 (36.4-46.3) fL RDW Coeff of Fermin 12.5 (11.5-14.5) % Plt Count 229 (130-400) K/uL MPV 9.2 L (9.4-12.4) fL Immature Gran % (Auto) 0.4 % Neut % (Auto) 91.3 % Lymph % (Auto) 7.0 % [place] % (Auto) 1.1 % Eos % (Auto) 0.0 % Baso % (Auto) 0.2 % Neut # (Auto) 4.96 (1.40-6.50) K/uL Lymph # (Auto) 0.38 L (1.20-3.40) K/uL [place] # (Auto) 0.06 L (0.11-0.59) K/uL Eos # (Auto) 0.00 (0.00-0.50) K/uL Baso # (Auto) 0.01 (0.00-0.20) K/uL Immature Gran # (Auto) 0.02 (0.01-0.20) K/uL RBC Morphology Unremarkable PT 10.8 (9.0-12.0) Seconds INR 1.0 (0.9-1.1) APTT 26 (21-31) Seconds PTT Ratio 1.0 POC Sodium 136 (135-144) mmol/L Sodium 135 L (136-145) mmol/L POC Potassium 3.3 (3.3-5.0) mmol/L Potassium 3.3 L (3.5-5.1) mmol/L POC Chloride 98 L (101-112) mmol/L Chloride 97 L (98-107) mmol/L Carbon Dioxide 28 (21-32) mmol/L POC Total CO2 28 (24-31) mmol/L Anion Gap 10 (3-11) POC Anion Gap 15.0 L (16-25) mmol/L POC BUN 13 (7-18) mg/dl BUN 14 (6-23) mg/dl Creatinine 0.74 (0.6-1.2) mg/dl POC Creatinine 0.7 (0.6-1.3) mg/dl Est Cr Clr Drug Dosing 68.5 ml/min Est GFR ( Amer) 97.8 ml/min Est GFR (Non-Af Amer) 84.4 ml/min BUN/Creatinine Ratio 18.9 (10-20) Glucose 159 H (70-99(Fasting)) mg/dl POC Glucose (other) 160 H (70-99) mg/dl Calcium 10.1 (8.6-10.3) mg/dl POC Ioniz Calcium Rashaad 1.14 (1.12-1.32) mmol/l Troponin I High Sens 14.6 H (0-14) pg/ml Lipase 28 (11-82) U/L Imaging Data Attestation: I personally reviewed and interpreted this imaging study as follows: My Impression: Chest x-ray negative. Airway clear. No pneumothorax. No consolidation. No cardiomegaly or cephalization.. No free air under the diaphragm. No fractures of the skeletal structures. Radiologist's Impression: Chest X-Ray 11/15/23 10:27 SINGLE VIEW CHEST CLINICAL HISTORY: Atypical chest pain. FINDINGS: 2 AP, portable, upright chest radiographs are compared to study dated 09/01/2023. The cardiomediastinal silhouette is unremarkable noting atherosclerotic calcification of the thoracic aorta. Chronic interstitial thickening is similar to previous. There is mild bibasilar scarring/atelectasis. No airspace consolidation or pleural effusion is identified. No pneumothorax is seen. The skeletal structures are osteopenic. The bony thorax is grossly intact. IMPRESSION: No active disease in the chest. ACT 112: Negative or not required by law. Electronically signed by: Jean Carlos Colunag M.D. 11/15/2023 11:[address] 11/15/23 10:28 CT SCAN OF THE BRAIN WITHOUT IV CONTRAST CLINICAL HISTORY: Headache. COMPARISON STUDY: CT of the brain dated 08/29/2023. MRI of the brain dated 08/30/2023. TECHNIQUE: Unenhanced axial CT scan of the brain is performed from the vertex to the skull base. A dose lowering technique was utilized adhering to the principles of ALARA. CT DOSE: 663.26 mGy.cm FINDINGS: Brain parenchyma: There is age-related involutional change noting mild subcortical and periventricular microangiopathic disease. There is no hemorrhage, mass effect, or evidence of acute territorial ischemia by CT criteria. Velázquez-white matter differentiation is preserved. No extra-axial fluid collection is seen. Ventricles, sulci, cisterns: Prominent secondary to involutional change. Intracranial vasculature: There is atherosclerotic calcification of the cavernous carotid and vertebral arteries. Calvarium: Unremarkable. Sinuses and mastoids: The visualized paranasal sinuses are clear. The mastoid air cells are well pneumatized. Orbits: The bony orbits are grossly intact. IMPRESSION: No acute intracranial abnormality. ACT 112: Negative or not required by law. Electronically signed by: Jean Carlos Colunga M.D. 11/15/2023 11:04 AM ECG Data Attestation: I personally reviewed and interpreted this ECG as follows: Rate (beats per minute): 76 Rhythm: + normal sinus ECG Intervals/blocks: + Normal QRS, + Normal MS and + Normal QT-c ECG ST segments: + Normal ST segments [facility] Narrative 1008: The patient was evaluated in room A4. A complete history and physical exam was performed Cardiac monitoring: An order was placed for continuous cardiac monitoring. The monitor shows a rate of 80 with sinus rhythm interpreted by me 1140: Imaging within normal limits. Labs show an elevated troponin. [facility] notified. Impression & Plan Elevated troponin, Hypertensive urgency, Hypokalemia Discharge Plan Visit Data Chief Complaint: Hypertension Stated Complaint: HIGH BP ED Provider: Andrei Mackey Discharge Problem: Elevated troponin, Hypertensive urgency, Hypokalemia Patient Disposition: Being Evaluated by Hospitalist Forms Stand Alone Forms: My [facility] Prescriptions Prescriptions: No Action multivitamin Tablet 1 tab PO DAILY omega-3 fatty acids 1,000 mg Capsule 0 mg PO DAILY liothyronine 25 mcg Tablet 20 mcg PO DAILY Rx Instructions: Patient stares she thinks it is 20 mcg potassium chloride [Klor-Con] 20 mEq packet 20 meq PO MOWEFR Hold Instructions: Hold taking until further instructions from your primary care physician vitamin B complex Tablet 1 tab PO DAILY losartan 100 mg tablet 100 mg PO QAM Qty: 30 0RF Rx Instructions: not taking nifedipine 60 mg tablet extended release 60 mg PO QAM Qty: 30 0RF Rx Instructions: not taking spironolactone 25 mg Tablet 12.5 mg PO DAILY Qty: 30 0RF Rx Instructions: not taking fluticasone propionate 50 mcg/actuation [place],Suspension 1 spray NA DAILY Qty: 0 0RF Saline Mist 0.65 % Aerosol,[place] 2 spray NA TID PRNQty: 0 0RF Referrals Referrals: PCP,NO [Primary Care Provider] -
[2023-11-15] MEDS: POTASSIUM CHLORIDE CRTAB 20 MEQ TABCR PO STA (13:12)
[2023-11-15] MEDS ORDERED: POLYETHYLENE (MIRALAX) 17 GM PACK PO PRN (13:37)
[2023-11-15] MEDS: ONDANSETRON INJ 2 MG/ML 2 ML VIAL IV PRN (14:22)
[2023-11-15] MEDS: ACETAMINOPHEN 1,000 MG/100 ML VIAL IV STA (14:22)
[2023-11-15] MEDS: LABETALOL HCL IV 5 MG/ML 20ML IV PRN (14:48)
[2023-11-15] MEDS: NIFEdipine EXTENDED REL 30 MG TABCR PO STA (14:50)
[2023-11-15] MEDS: ENOXAPARIN INJ 40 MG/0.4 ML SYR SQ SCH (16:34)
[2023-11-15] MEDS ORDERED: STAT IV Infusion **Titration per Protocol STA (16:47)
[2023-11-15] MEDS: niCARdipine 25 MG in SODIUM CHLORIDE 0.9% 240 ML IV SCH (17:13)
--- OUTSIDE RECORDS SUMMARY | 2023-11-15 17:27 | External Medical Summary | Summary of Care ---
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 Contact Info) Description 09/02/2023 Telephone Ancillary [facility] [address] [place] [address] Tennille Ambrosio, RN Hospital Follow-Up ([facility] 08/31) Allergies Active Allergy Reactions Criticality Noted Date Comments Ciprofloxacin Rash 03/20/2011 Chest tight Dairy Digestive Low 04/28/2013 Gluten 07/26/2011 Per patient causes bloating and fatigue Levofloxacin Hypertension,Neuro complications (Please comment),Other (Please comment),Psych complications High 08/30/2017 Extreme anxiety, panic attacks, headache, chest pain, shortness of breath Penicillins Rash 11/15/2008 swelling Sulfa Antibiotics Nausea/vomiting 02/05/2018 documented as of this encounter (statuses as of 09/02/2023) Medications Medication Sig Dispensed Refills Start Date End Date Status DHEA 50 MG PO CAPS Daily 0 02/17/2014 Active PROGESTERONE POWD unsure of dose 0 02/17/2014 Act kaci Calcium Citrate-Vitamin D 500-400 MG-UNIT CHEW Take by mouth daily. 0 10/18/2014 Active Ascorbic Acid (VITAMIN C) 1000 MG Tablet Take 1 Tab by mouth daily. 2000 mg daily 0 08/21/2017 Active B Complex Tablet 2 tabs daily 0 08/21/2017 Active Calcium 500 MG Tablet Take 1 Tab by mouth 2 times a day. Unsure of dose 0 08/21/2017 Active Cholecalciferol (VITAMIN D3) 5000 units Tablet Take 1 Tab by mouth daily. 0 08/21/2017 Active fish oil concentrate (OMEGA-3) 1000 MG CAPS Take 1 Cap by mouth 2 times a day. 60 Cap 5 08/21/2017 Active vitamin a (AQUASOL-A) 27811 units CAPS One tab weekly 0 08/21/2017 Active Fluticasone Propionate 50 MCG/ACT Nasal Suspension (Flonase) Administer 1 [place] into nostril in the morning. 0 09/01/2023 Active Losartan Potassium 100 MG Oral Tablet (Cozaar) Take 1 Tablet by mouth in the morning. 0 09/01/2023 Active NIFEdipine ER 60 MG Oral Tablet Extended Release 24 Hour (Adalat CC) Take 1 Tablet by mouth in the morning. 0 09/01/2023 Active Spironolactone 25 MG Oral Tablet (Aldactone) Take 0.5 Tablets by mouth in the morning. 0 09/01/2023 Active Liothyronine Sodium 5 MCG Oral Tablet (Cytomel) Take 4 Tablets by mouth in the morning. 0 Active liothyronine (TRIOSTAT) 10 MCG/ML SOLN Take 50 mcg by mouth daily. Oral medication prescribed by Blu Allen. 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 About 10 years of 1ppd Alcohol Use Standard Drinks/Week Comments No 0 (1 standard drink = 0.6 oz pur e alcohol) Quit 25 years ago. PHQ-2 Answer Date Recorded PHQ-2 Score 2 04/13/2018 Sex and Gender Information Value Date Recorded Sex Assigned at Not on file Gender Identity Not on file Sexual Orientation Not on file Job Start Date Occupation Industry Not on file Not on file Not on file documented as of this encounter Miscellaneous Notes * Telephone Encounter - Tennille Ambrosio RN - 09/02/2023 3:15 PM EDT Transitions of Care Note Reason for Referral:Recent Admission Phone visit for follow up: DOMINGO Admitted to: [facility], Date: 08/28 Discharged to: home, Date: 08/31 Diagnosis driving hospitalization: Hypertensive Urgency COVID 19 Headache Source/Contact: Patient SUBJECTIVE Consent: Verbal consent for review of hospital discharge: Yes REVIEW OF SYSTEMS Patient/Other Reports: Current patient/caregiver problems or concerns: none at this time CV: Denies problems Pulmonary: Denies problems Chills/Sweats/Fever:Denies chills/sweats Denies fever Appetite:Denies problems such as nausea, vomiting, burning, decreased appetite Current diet: as before Bowel: denies problems Bladder: denies problems Wound (If applicable): N/A Pain:Denies Sleep:Denies problems FUNCTIONAL STATUS: ADL'S: Needs Assistance With:N/A as pt is independent IADL'S: Needs Assistance With:N/A as pt is independent Cognitive and Mental Health: denies problems, alert and oriented x 3, and able to communicate, understand instructions, process information. MEDICATION RECONCILIATION Medications: Discharge med list reviewed with patient or caregiver New medication(s) filled since hospitalization- losartan, spironolactone, nifedipine, flonase Discontinued medication(s) since hospitalization- triamterene/hctz and hold KCL supplement Reports all medications taken as prescribed. Denies side effects OBJECTIVE ASSESSMENT Medication Risk Assessment: No risks identified Did patient fail outpatient treatment? No Discharge instructions available for review? Yes PLAN Symptom Monitoring Interventions:Member/caregiver education - signs and symptoms to contact PrimaryCare (DO NOT DELETE-Three bear symptoms patient is to report to PCP) Return of headache 2. Hypertension despite taking medicine 3. Chest pain Presentation DesignerOutboard Technician of Care interventions/Action Plan: Medication reconciliation and 5 - 7 day follow-up with PCP in place - Date: 09/10 Educated on role of DOMINGO completed with patient/caregiver. Educated patient/caregiver on patient right to have input on DOMINGO plan of care. Verification of Home Health/DME if indicated: NO Identified Care Gaps: Yes Care Gaps closed this call: Appointment made or confirmed and Transition of Care follow-up communication Re-evaluation of Plan of Care and progress towards goals achievement: Patient education this visit: Verbal, as above Plan to follow-up as previously scheduled, instructed to call Primary Care Provider with change in symptoms or as needed before next follow-up, discharge needs met, verbalizes understanding and agrees with plan. Tennille Ambrosio RN documented in this encounter Plan of Treatment Upcoming Encounters Date Type Department Care Team (Late st Contact Info) Description 09/11/2023 1:40 PM EDT Office Visit Family Practice [facility] [address] [place] [id number] Alva Barnard DO [address] [place] [id number] Health Maintenance Due Date Last Done Comments COVID-19 Vaccine (#1) 1960 Pneumococcal Vaccine: 65+ Years (1 of 2 - PCV) 1963 Hepatitis C Screening 1975 Zoster Vaccines (1 of 2) 01/03/1976 Cologuard 2002 Colonoscopy 2002 Colorectal Cancer Screening 2002 Fecal Occult Blood Test 2002 Sigmoidoscopy 2002 Mammogram 06/20/2015 06/20/2014, 01/2014, 06/15/2012, Additional history exists Depression Screening 08/08/2018 08/08/2017 DXA Scan 10/21/2020 10/21/2017, 10/07, 06/17/2011 DTaP,Tdap,and Td Vaccines (2 - Td or Tdap) 03/20/2021 03/20/2011 Influenza Vaccine (FLU shot) (#1) 2023 Lipid Panel 08/15/2024 08/16/2019, 12/2019, 08/31/2017, Additional history exists Pap Smear Discontinued 12/26/2015, 12/07, 08/07/2011, Additional history exists GARDASIL-HPV IMMUNIZATION SERIES Aged Out No longer eligible based on patient's age to complete this topic Hepatitis B Aged Out No longer eligi ble based on patient's age to complete this topic MENINGOCOCCAL (MENACTRA/MENVEO) Aged Out No longer eligible based on patient's age to complete this topic documented as of this encounter Medical Devices Not on filedocumented as of this encounter
--- OUTSIDE RECORDS SUMMARY | 2023-11-15 17:27 | External Medical Summary | Summary of Care ---
Author Name Unknown Organization [facility] Address [address] [place] [address] Phone [phone] Care Team Providers Care Groover And Striper Operator Name Role Phone Alva Barnard DO Primary Care Provider [phone] Reason for Visit * Reason Comments NEW PATIENT * Evaluate & Treat - Unlimited Visits (Within 10 days (routine)) - Pending Review Specialty Diagnoses / Procedures Referred By Contac t Referred To Contact Neurology Diagnoses Abnormal finding on MRI of brain Chronic nonintractable headache, unspecified headache type Alva Barnard DO [address] [place] [address] Referral ID Status Reason Start Date Expiration Date Visits Requested Visits Authorized [id number] Pending Review Specialty Services Required 09/11/[phone] Encounter Details Date Type Department Care Team ([facility] Contact Info) Description 09/16/2023 8:40 AM EDT Office Visit Neurology [facility] [address] [facility] [place] [address] Sue Merlos MD [address] [facility] [place] [address] Intractable chronic migraine without aura and without status migrainosus*; White matter abnormality on MRI of brain Allergies Active Allergy Reactions Criticality Noted Date Comments Ciprofloxacin Rash 03/20/2011 Chest tight Dairy Digestive Low 04/28/2013 Gluten 07/26/2011 Per patient causes bloating and fatigue Levofloxacin Hypertension,Neuro complications (Please comment),Other (Please comment),Psych complications High 08/30/2017 Extreme anxiety, panic attacks, headache, chest pain, shortness of breath Penicillins Rash 11/15/2008 swelling Sulfa Antibiotics Nausea/vomiting 02/05/2018 documented as of this encounter (statuses as of 09/16/2023) Medications Medication Sig Dispensed Refills Start Date End Date Status PROGESTERONE POWD unsure of dose 0 02/17/2014 Act kaci Ascorbic Acid (VITAMIN C) 1000 MG Tablet Take 1 Tablet by mouth in the morning. 2000 mg daily. 0 08/21/2017 Active B Complex Tablet 2 tabs daily 0 08/21/2017 Active fish oil concentrate (OMEGA-3) 1000 MG CAPS Take 1 Capsule by mouth in the morning and 1 Capsule before bedtime. 60 Cap 5 08/21/2017 Active vitamin a (AQUASOL-A) 37773 units CAPS One tab weekly 0 08/21/2017 Active Fluticasone Propionate 50 MCG/ACT Nasal Suspension (Flonase) Administer 1 [place] into nostril in the morning. 0 09/01/2023 Active Losartan Potassium 100 MG Oral Tablet (Cozaar) Take 1 Tablet by mouth in the morning. 0 09/01/2023 Active Spironolactone 25 MG Oral Tablet (Aldactone) Take 0.5 Tablets by mouth in the morning. 0 09/01/2023 Active Liothyronine Sodium 5 MCG Oral Tablet (Cytomel) Take 4 Tablets by mouth in the morning. 0 Active DHEA 50 MG PO CAPS Take by mouth. 0 02/17/2014 09/16/2023 Discontinu ed Calcium Citrate-Vitamin D 500-400 MG-UNIT CHEW Take by mouth daily. 0 10/18/2014 09/16/2023 Discontinued Calcium 500 MG Tablet Take 1 Tablet by mouth in the morning and 1 Tablet before bedtime. Unsure of dose. 0 08/21/2017 09/16/2023 Discontinued Cholecalciferol (VITAMIN D3) 5000 units Tablet Take 5,000 Units by mouth in the morning. 0 08/21/2017 09/16/2023 Discontinued Hospital, Clinic, or Other Facility Administered Medication Ordered Dose Route Frequency Start Date End Date Status albuterol sulfate (PROVENTIL) (2.5 MG/3ML) 0.083% inhalation solution 2.5 mgIndications:Cough 2.5 mg NEBULIZER Q4H PRN 03/05/2017 Activ e documented as of this encounter (statuses as of 09/16/2023) Active Problems Problem Noted Date Diagnosed Date Bronchiectasis without complication 08/30/2017 Subjective tinnitus 11/30/2012 Hyperthyroidism 10/13/2012 Toxic diffuse goiter 05/01/2011 documented as of this encounter (statuses as of 09/16/2023) Resolved Problems Problem Noted Date Diagnosed Date Resolved Date 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 Some college, no degree 09/16/2023 Sex and Gender Information Value Date Recorded Sex Assigned at Not on file Gender Identity Not on file Sexual Orientation Not on file Job Start Date Occupation Industry Not on file Not on file Not on file documented as of this encounter Last Filed Vital Signs Vital Sign Reading Time Taken Comments Blood Pressure 138/88 09/16/2023 8:44 AM EDT Pulse 66 09/16/2023 8:44 AM EDT Temperature 35.9 C (96.7 F) 09/16/2023 8:44 AM ED T Respiratory Rate 16 09/16/2023 8:44 AM EDT Oxygen Saturation 99% 09/16/2023 8:44 AM EDT Inhaled Oxygen Concentration - - Weight 60 kg (132 lb 3.2 oz) 09/16/2023 8:44 AM EDT Height - - Body Mass Index 20.71 09/11/2023 1:46 PM EDT documented in this encounter Progress Notes * Sue Merlos MD - 09/16/2023 9:05 AM EDT HISTORY AND PHYSICAL [place] [address] NAME: Patrizia Sparrow Date of : 1955 Date of Visit: 09/16/23 Chief Complaint: Chief Complaint Patient presents with NEW PATIENT HPI: Patrizia Sparrow is a 68 year old female presenting with white matter abnormalities. These are of T2 weighted images seen on a recent MRI. Context is that a woman who was admitted for headache andhypertension to [facility]. As a follow-up to the headaches and family history of cerebral aneurysms she also had imaging studies of the intracranial contents and was found not to have an aneurysm. T2 images are in the context in a patient with lifelong migraine. In terms of her headaches she has had headaches since age 17. She generally has a headache every day and awakens with them with them. She has never had an accompanying aura. About once a month the headaches are severe enough they produce vomiting which may require an emergency room visit. She has never been on prophylactic medication. HOME MEDICATIONS : Current Outpatient Medications Medication Sig Dispense Refill PROGESTERONE POWD unsure of dose Ascorbic Acid (VITAMIN C) 1000 MG Tablet Take 1 Tablet by mouth in the morning. 2000 mg daily. B Complex Tablet 2 tabs daily fish oil concentrate (OMEGA-3) 1000 MG CAPS Take 1 Capsule by mouth in the morning and 1 Capsule before bedtime. 60 Cap 5 vitamin a (AQUASOL-A) 77598 units CAPS One tab weekly Fluticasone Propionate 50 MCG/ACT Nasal Suspension (Flonase) Administer 1 [place] into nostril in themorning. Losartan Potassium 100 MG Oral Tablet (Cozaar) Take 1 Tablet by mouth in the morning. Spironolactone 25 MG Oral Tablet (Aldactone) Take 0.5 Tablets by mouth in the morning. Liothyronine Sodium 5 MCG Oral Tablet (Cytomel) Take 4 Tablets by mouth in the morning. DHEA 50 MG PO CAPS Take by mouth. Calcium Citrate-Vitamin D 500-400 MG-UNIT CHEW Take by mouth daily. Calcium 500 MG Tablet Take 1 Tablet by mouth in the morning and 1 Tablet before bedtime. Unsure of dose. Cholecalciferol (VITAMIN D3) 5000 units Tablet Take 5,000 Units by mouth in the morning. Current Facility-Administered Medications Medication Dose Route Frequency Provider Last Rate Last Admin albuterol sulfate (PROVENTIL) (2.5 MG/3ML) 0.083% inhalation solution 2.5 mg 2.5 mg Nebulizer Q4H PRN Steffany Arana CRNP 2.5 mg at 04/22/17 0734 Review of patient's allergies indicates: Allergen Reactions Levofloxacin Hypertension, Neuro complications (Please comment), Other (Please comment) and Psych complications Extreme anxiety, panic attacks, headache, chest pain, shortness of breath Ciprofloxacin Rash Chest tight Gluten Per patient causes bloating and fatigue Pcn [Penicillins] Rash swelling Sulfa Antibiotics Nausea/vomiting Dairy Digestive Past Medical History: Diagnosis Date Fracture of foot, closed L High blood pressure Hypothyroid Osteoporosis Other ankle sprain and strain L Other leukemia of unspecified cell type in remission 06/09/2003 At [facility] and [facility] Past Surgical History: Procedure Laterality Date SHOP HAND PAP SCREEN 06/27/10 negative for malignancy HYSTEROSCOPY;ENDOMETRIAL ABLAT INFORMATION 01/2008 breast , reduction and tummy tuck over seas INFORMATION 2004 left foot surgery on the 4th and 5th digit INFORMATION 12/13/2008 for removal of sutures from breast reduction and tummy tuck 12/13/ INFORMATION 07/17/2010 07/17/2010 - removal of sutures, foreign jhoan of the abdominal wall , [facility]CRE[facility] BILATERAL 06/05/10 birad 2 Family History Problem Relation Age of Onset Cancer Father bone Hypertension Mother Heart Disorder Grandfather (Paternal) [place] Heart Disorder Brother [place] bypass @ 54 Cancer Sister breast No Past Hx Sister Social History Socioeconomic History Marital status: Spouse name: Vahe Number of children: 4 Years of education: Not on file Highest education level: Some college, no degree Occupational History Not on file Tobacco Use Smoking status: Former Current packs/day: 0.00 Average packs/day: 1 pack/day for 18.0 years (18.0 ttl pk-yrs) Types: Cigarettes Start date: 03/20/1968 Quit date: 03/20/1986 Years since quittin.5 Smokeless tobacco: Never Tobacco comments: Stated smoking at 13 but did not smoke 1 ppd until 20. About 10 years of 1ppd Substance and Sexual Activity Alcohol use: No Comment: Quit 25 years ago. Drug use: No Sexual activity: Yes Other Topics Concern Not on file Social History Narrative Not on file Social Determinants of Health Financial Resource Strain: Not on file Food Insecurity: Not on file Transportation Needs: Not on file Physical Activity: Not on file Stress: Not on file Social Connections: Not on file Intimate Partner Violence: Not on file Housing Stability: Not on file ROS: Review of Systems Constitutional: Negative. HENT: Negative. Eyes: Negative. Respiratory: Positive for cough. Cardiovascular: Negative. Gastrointestinal: Negative. Endocrine: Negative. Genitourinary: Negative. Musculoskeletal: Negative. Allergic/Immunologic: Negative. Neurological: Negative. Hematological: Negative. Psychiatric/Behavioral: Negative. All other systems reviewed and are negative. PHYSICAL EXAMINATION: Vital Signs: BP 138/88 (BP Site: Right Arm, BP Position: Sitting, BP Cuff Size: Regular) | Pulse 66 | Temp 35.9 C (96.7 F) (Tympanic) | Resp 16 | Wt 60 kg (132 lb 3.2 oz) | SpO2 99% | BMI 20.71 kg/m | BSA 1.68 m EXAM: Constitutional: appearance normally developed, with no deformities Heart sounds are normal Examination of the peripheral vascular system by observation does not reveal varicosity or edema. Palpation reveals normal pulses and temperature Carotid arteries reveal no bruit. NEUROLOGIC EXAMINATION: Appearance: no acute distress Opthalmoscopic: disc flat, normal fundus The patient has obviously intact higher integrative functioning to orientation, language, fund of knowledge, attention to the examiner, and memory Speech: no dysarthria Cranial Nerves: CN 2 - no visual defect on confrontation. CN 3, 4, 6 - extra-ocular movements intact and no nystagmus; with round pupils appropriately reactive to light and accomodation CN 5 - facial sensation intact CN 7 - no facial asymmetry CN 8 - intact hearing CN 9, 10 - palate symmetric CN 11 - good shoulder shrug CN 12 - tongue midline Gait and station: normal Coordination: normal finger to nose testing and rapid alternating movements of the lower extremities. No tremor is seen. Sensory: intact to light touch and pain Muscle Tone: normal Muscle exam:Nl in all extremities without pronator drift. Reflexes: Hypo with downgoing toes No TMJ or occipital tenderness. IMPRESSION / PLAN: I have reassured this patient that the T2 images are likely migraine related. However her CRP was elevated at [facility]. I am going to follow this along with a repeat of this and other studies for the arteritides. I have also ordered EEG. My concern is that with the patient with a history of hypertension these may represent more than just the usual T2 images seen in migraine. I also offered this patient prophylactic medication which she respectivefully declines. I will be in contact with her by telephone with the above results (her choice). If she has a change in heart and wishes to be on prophylactic medication she will get back to me as well. Let me closed by saying that, unless this patient has a pheochromocytoma, the use of propranolol may be helpful in headache suppression as well as treatment of hypertension. To be clear this is a suggestion. Sue Merlos MD documented in this encounter Nursing Notes * Jailyn Mccall LPN - 09/16/2023 8:43 AM EDT Patient verified identity by spelling of last name and date. Chief Complaint Patient presents with NEW PATIENT documented in this encounter Plan of Treatment Upcoming Encounters Date Type Department Care Team (Late st Contact Info) Description 09/16/2023 10:40 AM EDT Laboratory Laboratory [facility] [address] [place] [id number] [place], Lab [facility] [address] [facility] [place] [address] Arrived 10/01/2023 9:00 AM EDT NeuroDiagnostic Study Neurophysiology [facility] [place] [address] [place] [address] Sp, Neurophys Tech [address] [facility] [place] [address] 10/10/2023 11:00 AM EDT Office Visit Cardiology, [facility] [address] [address] Maxi Espinal MD [address] [place] [address] Pending Results Name Type Priority Associated Diagnoses Date /Time ANTINUCLEAR ANTIBODY (KENYON) EIA SCREEN WITH REFLEX AB QUANT Lab Routine White matter abnormality on MRI of brain 09/16/2023 9:41 AM EDT ERYTHROCYTE SEDIMENTATION RATE (ESR) Lab Routine White matter abnormality on MRI of brain 09/16/2023 9:41 AM EDT LYME DISEASE ANTIBODY SCREEN WITH REFLEX TO CONFIRMATION Lab Routine White matter abnormality on MRI of brain 09/16/2023 9:41 AM EDT CRP (INFLAMMATORY MARKER) Lab Routine White matter abnormality on MRI of brain 09/16/2023 9:41 AM EDT ANTINUCLEAR ANTIBODY (KENYON) SCREEN, EMMIE Lab Routine White matter abnormality on MRI of brain 09/16/2023 9:41 AM EDT LYME DISEASE ANTIBODY SCREEN Lab Routine White matter abnormality on MRI of brain 09/16/2023 9:41 AM EDT Scheduled Orders Name Type Priority Associated Diagnoses Orde r Schedule EEG ROUTINE Procedures Routine White matter abnormality on MRI of brain Ordered: 09/16/2023 Health Maintenance Due Date Last Done Comments Hepatitis C Screening 1975 Zoster Vaccines (1 of 2) 2007 Depression Screening 08/08/2018 08/08/2017 DTaP,Tdap,and Td Vaccines (2 - Td or Tdap) 03/20/2021 03/20/2011 Pneumococcal Vaccine: 65+ Years (1 of 1 - PCV) 2022 COVID-19 Vaccine (1 - season) 2023 Influenza Vaccine (FLU shot) (Season Ended) 2024 Lipid Panel 08/15/2024 08/16/2019, 12/2019, 08/31/2017, Additional history exists DXA Scan 10/22/2027 10/21/2017, 10/07, 06/17/2011 Pap Smear Discontinued 12/26/2015, 12/07, 08/07/2011, Additional [...] Not on filedocumented as of this encounter Visit Diagnoses Diagnosis Intractable chronic migraine without aura and without status migrainosus- Primary Chronic migraine without aura, with intractable migraine, so stated, without mention of status migrainosus White matter abnormality on MRI of brain Nonspecific (abnormal) findings on radiological and other examination of skull and head documented in this encounter Care Teams Groover And Striper Operator Relationship Specialty Start Date End Date Alva Barnard DO [address] [place] [address] PCP - General Family Medicine 09/16/23 documented as of this encounter"
--- OUTSIDE RECORDS SUMMARY | 2023-11-15 17:27 | External Medical Summary | Summary of Care ---
Author Name Unknown Organization [facility] Address [address] [place] [address] Phone [phone] Care Team Providers Care Power Transformer Inspector Name Role Phone Alva Barnard DO Primary Care Provider [phone] Reason for Visit * Reason Onset Date Comments Test Results Lab 09/17/2023 Encounter Details Date Type Department Care Team ([facility] st Contact Info) Description 09/17/2023 Telephone Neurology [facility] [address] [place] [address] Sue Merlos MD [address] [place] [address] Test Results Lab Allergies Active Allergy Reactions Criticality Noted Date Comments Ciprofloxacin Rash 03/20/2011 Chest tight Dairy Digestive Low 04/28/2013 Gluten 07/26/2011 Per patient causes bloating and fatigue Levofloxacin Hypertension,Neuro complications (Please comment),Other (Please comment),Psych complications High 08/30/2017 Extreme anxiety, panic attacks, headache, chest pain, shortness of breath Penicillins Rash 11/15/2008 swelling Sulfa Antibiotics Nausea/vomiting 02/05/2018 documented as of this encounter (statuses as of 09/17/2023) Medications Medication Sig Dispensed Refills Start Date [...] Cap 5 08/21/2017 Active vitamin a (AQUASOL-A) 97542 units CAPS One tab weekly 0 08/21/2017 Acti ve Fluticasone Propionate 50 MCG/ACT Nasal Suspension (Flonase) Administer 1 [place] into nostril in the morning. 0 09/01/2023 Active Losartan Potassium 100 MG Oral Tablet (Cozaar) Take 1 Tablet by mouth in the morning. 0 09/01/2023 Active Spironolactone 25 MG Oral Tablet (Aldactone) Take 0.5 Tablets by mouth in the morning. 0 09/01/2023 Active Liothyronine Sodium 5 MCG Oral Tablet (Cytomel) Take 4 Tablets by mouth in the morning. 0 Active Hospital, Clinic, or Other Facility Administered Medication Ordered Dose Route Frequency Start Date End Date Status albuterol sulfate (PROVENTIL) (2.5 MG/3ML) 0.083% inhalation solution 2.5 mgIndications:Cough 2.5 mg NEBULIZER Q4H PRN 03/05/2017 Activ e documented as of this encounter (statuses as of 09/17/2023) Active Problems Problem Noted Date Diagnosed Date Bronchiectasis without complication 08/30/2017 Subjective tinnitus 11/30/2012 Hyperthyroidism 10/13/2012 Toxic diffuse goiter 05/01/2011 documented as of this encounter (statuses as of 09/17/2023) Resolved Problems Problem Noted Date Diagnosed Date Resolved Date 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 documented as of this encounter (statuses as of 09/17/2023) Immunizations Name Administration Dates Next Due TDAP [...] encounter Miscellaneous Notes * Telephone Encounter - Sue Merlos MD - 09/17/2023 3:50 PM EDT Bw all nl documented in this encounter Plan of Treatment Upcoming Encounters Date Type Department Care Team (Late st Contact Info) Description 10/01/2023 9:00 AM EDT NeuroDiagnostic Study Neurophysiology [facility] [address] [facility] [place] [address] Sp, Neurophys Tech [facility] [address] 10/10/2023 11:00 AM EDT Office Visit Cardiology, [facility] [address] [address] Maxi Espinal MD [address] [place] [address] Health Maintenance Due Date Last Done Comments Hepatitis C Screening 1975 Zoster Vaccines (1 of 2) 2007 Depression Screening 08/08/2018 08/08/2017 DTaP,Tdap,and Td Vaccines (2 - Td or Tdap) 03/20/2021 03/20/2011 Pneumococcal Vaccine: 65+ Years (1 of 1 - PCV) 2022 COVID-19 Vaccine (1 - 2022- season) 2023 Influenza Vaccine (FLU shot) (Season [...] Not on filedocumented as of this encounter Care Teams Power Transformer Inspector Relationship Specialty Start Date End Date Alva Barnard DO [address] [place] [address] PCP - General Family Medicine 09/16/23 documented as of this encounter
--- OUTSIDE RECORDS SUMMARY | 2023-11-15 17:27 | External Medical Summary | Summary of Care ---
Author Name Unknown Organization [facility] Address [address] [place] [address] Phone [phone] Care Team Providers Care Chemical Processing Laborer Name Role Phone Alva Barnard DO Primary Care Provider [phone] Reason for Visit * Reason Onset Date Comments Test Results Lab 09/17/2023 Encounter Details Date Type Department Care Team ([facility] st Contact Info) Description 09/17/2023 Telephone Neurology [facility] [address] [place] [address] Sue Merlos MD [address] [place] [address] Test Results Lab Allergies Active Allergy Reactions [...] as of this encounter (statuses as of 09/18/2023) Medications Medication Sig Dispensed Refills Start Date [...] Cap 5 08/21/2017 Active vitamin a (AQUASOL-A) 64828 units CAPS One tab weekly 0 08/21/2017 Acti ve Fluticasone Propionate 50 MCG/ACT Nasal Suspension (Flonase) Administer 1 [place] into nostril in the morning. 0 09/01/2023 [...] as of this encounter (statuses as of 09/18/2023) Active Problems Problem Noted Date Diagnosed Date Bronchiectasis without complication 08/30/2017 Subjective tinnitus 11/30/2012 Hyperthyroidism 10/13/2012 Toxic diffuse goiter 05/01/2011 documented as of this encounter (statuses as of 09/18/2023) Resolved Problems Problem Noted Date Diagnosed Date Resolved Date 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 documented as of this encounter (statuses as of 09/18/2023) Immunizations Name Administration Dates Next Due TDAP [...] encounter Miscellaneous Notes * Telephone Encounter - Jailyn Mccall LPN - 09/18/2023 9:15 AM EDT myChart message sent. * Telephone Encounter - Sue Merlos MD - 09/17/2023 3:50 PM EDT Bw all nl documented in this encounter Plan of Treatment Upcoming Encounters Date Type Department Care Team (Late st Contact Info) Description 10/01/2023 9:00 AM EDT NeuroDiagnostic Study Neurophysiology [facility] [address] [facility] [place] [address] Sp, Neurophys Tech 200 [facility] [place] [address] 10/10/2023 11:00 AM EDT Office Visit Cardiology, [facility] [address] [address] Maxi Espinal MD [address] [place] [address] Health Maintenance Due Date Last Done Comments Hepatitis C Screening 1973 Zoster Vaccines (1 of 2) 2007 Depression Screening 08/08/2018 08/08/2017 DTaP,Tdap,and Td Vaccines (2 - Td or Tdap) 03/20/2021 03/20/2011 Pneumococcal Vaccine: 65+ Years (1 of 1 - PCV) 2022 COVID-19 Vaccine (1 - 2022-24 season) 2023 Influenza Vaccine (FLU shot) (Season [...] filedocumented as of this encounter Care Teams Chemical Processing Laborer Relationship Specialty Start Date End Date Alva Barnard DO [address] [place] [address] PCP - General Family Medicine 09/16/23 documented as of this encounter
--- OUTSIDE RECORDS SUMMARY | 2023-11-15 17:27 | External Medical Summary | Summary of Care ---
Author Name Unknown Organization [facility] Address [address] [place] [address] Phone [phone] Care Team Providers Care Appeals Examiner Name Role Phone Alva Barnard DO Primary Care Provider [phone] Reason for Visit * Reason Onset Date Comments Health Maintenance 10/10/2023 Encounter Details Date Type Department Care Team ([facility] st Contact Info) Description 10/10/2023 Telephone Family Practice [facility] [address] [facility] [address] Alva Barnard DO [address] [facility] [facility] [address] Health Maintenance Allergies Active Allergy Reactions Criticality Noted Date Comments Ciprofloxacin Rash 03/20/2011 Chest tight Dairy Digestive Low 04/28/2013 Gluten 07/26/2011 Per patient causes bloating and fatigue Levofloxacin Hypertension,Neuro complications (Please comment),Other (Please comment),Psych complications High 08/30/2017 Extreme anxiety, panic attacks, headache, chest pain, shortness of breath Penicillins Rash 11/15/2008 swelling Sulfa Antibiotics Nausea/vomiting 02/05/2018 documented as of this encounter (statuses as of 10/10/2023) Medications Medication Sig Dispensed Refills Start Date [...] Cap 5 08/21/2017 Active vitamin a (AQUASOL-A) 59338 units CAPS One tab weekly 0 08/21/2017 Acti ve Fluticasone Propionate 50 MCG/ACT Nasal Suspension (Flonase) Administer 1 [place] into nostril in the morning. 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 documented as of this encounter (statuses as of 10/10/2023) Immunizations Name Administration Dates Next Due TDAP [...] encounter Miscellaneous Notes * Telephone Encounter - Irma Ross LPN - 10/10/2023 10:35 AM EDT Care Gaps Comprehensive Care Outreach Last Office/Telemedicine Visit: 09/11/2023 (in office), Visit date not found (telemedicine) Next Office Visit: Visit date not found Hemoglobin AIC Results: Lab Results Component Value Date/Time HEMOGLOBIN A1C - [facility] 5.0 07/05/2011 10:01 AM BP Readings from Last 1 Encounters: 09/16/23 138/88 Reviewed Health Maintenance below: Health Maintenance Topic Date Due Hepatitis C Screening Never done Zoster Vaccines (1 of 2) Never done Depression Screening 08/08/2018 DTaP,Tdap,and Td Vaccines (2 - Td or Tdap) 03/20/2021 Pneumococcal Vaccine: 65+ Years (1 of 1 - PCV) Never done COVID-19 Vaccine (1 - season) Never done Influenza Vaccine (FLU shot) (Season Ended) 2024 Ov declined to far out. Wants called closer to the date to schedule Care Gap Outreach Action Taken: Spoke to patient documented in this encounter Plan of Treatment Upcoming Encounters Date Type Department Care Team (Late st Contact Info) Description 12/03/2023 1:00 PM EDT Office Visit Cardiology, [facility] [address] [place] [address] Saroj Young DO [address] [place] [address] Health Maintenance Due Date Last Done Comments [...] Discontinued 12/26/2015, 12/07, 08/07/2011, Additional history exists Colonoscopy Discontinued GARDASIL-HPV IMMUNIZATION SERIES Aged Out No longer eligible based on patient's age to complete this topic Hepatitis B Aged Out No longer eligi ble based on patient's age to complete this topic MENINGOCOCCAL (MENACTRA/MENVEO) Aged Out No longer eligible based on patient's age to complete this topic documented as of this encounter Medical Devices Not on filedocumented as of this encounter Care Teams Appeals Examiner Relationship Specialty Start Date End Date Alva Barnard DO [address] [place] [address] PCP - General Family Medicine 09/16/23 documented as of this encounter
--- OUTSIDE RECORDS SUMMARY | 2023-11-15 17:27 | External Medical Summary | Summary of Care ---
Author Name Unknown Organization [facility] Address [address] [place] [address] Phone [phone] Care Team Providers Care Manager Photo Name Role Phone Maritza Plummer MD Primary Care Provider + Encounter Details Date Type Department Care Team ([facility] Contact Info) Description 08/31/2023 Result Scan Unspecified Department Jemal Reid PA-C [address] [place] [address] <No scans attached> Allergies Active Allergy Reactions Criticality Noted Date Comments Ciprofloxacin Rash 03/20/2011 Chest tight Dairy Digestive Low 04/28/2013 Gluten 07/26/2011 Per patient causes bloating and fatigue Levofloxacin Hypertension,Neuro complications (Please comment),Other (Please comment),Psych complications High 08/30/2017 Extreme anxiety, panic attacks, headache, chest pain, shortness of breath Penicillins Rash 11/15/2008 swelling Sulfa Antibiotics Nausea/vomiting 02/05/2018 documented as of this encounter (statuses as of 09/01/2023) Medications Medication Sig Dispensed Refills Start Date End Date Status DHEA 50 MG PO CAPS Daily 0 02/17/2014 Active PROGESTERONE POWD unsure of dose 0 02/17/2014 Act kaci Calcium Citrate-Vitamin D 500-400 MG-UNIT CHEW Take by mouth daily. 0 10/18/2014 Active liothyronine (TRIOSTAT) 10 MCG/ML SOLN Take 50 mcg by mouth daily. Oral medication prescribed by Blu Allen. optometrist/practice owner doctor 6 mL 0 12/14/2015 Active Ascorbic Acid (VITAMIN C) 1000 MG [...] Cap 5 08/21/2017 Active vitamin a (AQUASOL-A) 15552 units CAPS One tab weekly 0 08/21/2017 [facility], [facility], or Other Facility Administered Medication Ordered Dose Route Frequency Start Date End Date Status albuterol sulfate (PROVENTIL) (2.5 MG/3ML) 0.083% inhalation solution 2.5 mgIndications:Cough 2.5 mg NEBULIZER Q4H PRN 03/05/2017 Activ e documented as of this encounter (statuses as of 09/01/2023) Active Problems Problem Noted Date Diagnosed Date Bronchiectasis without complication 08/30/2017 Subjective tinnitus 11/30/2012 Hyperthyroidism 10/13/2012 Toxic diffuse goiter 05/01/2011 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 documented as of this encounter (statuses as of 09/01/2023) Immunizations Name Administration Dates Next Due TDAP [...] on file documented as of this encounter Plan of Treatment Health Maintenance Due Date Last Done Comments [...] Not on filedocumented as of this encounter Procedures Procedure Name Priority Date/Time Associated Diagnosis Comments RADIOLOGY SCANNED RESULT 08/31/2023 documented in this encounter Results * RADIOLOGY SCANNED RESULT (08/31/2023) 08/31/2023 Jemal Reid PA-C [facility] documented in this encounter Care Teams Manager Photo Relationship Specialty Start Date End Date Maritza Plummer MD [address] [place] [address] PCP - General Internal Medicine 07/01/11 documented as of this encounter
--- OUTSIDE RECORDS SUMMARY | 2023-11-15 17:27 | External Medical Summary ---
Author Name Unknown Address Unknown Organization K01:[facility] [place] [address] [place] [address] Laboratory Report Ordering Provider Test Date Status ZIA BUITRAGO 09/16/2023 09:41:21 Final Observation Date Value Abnormality Reference (Units ) Status CRP, low-sensitivity 09/16/2023 09:41:21 <3 <=5 (mg/L) Final Performing Location [facility] - [address] [place] [address]
--- OUTSIDE RECORDS SUMMARY | 2023-11-15 17:27 | External Medical Summary | Summary of Care ---
Author Name Unknown Organization [facility] Address [address] [place] [address] Phone [phone] Care Team Providers Care Excavating Machine Operator Name Role Phone Unavailable Primary Care Provider Unavailabl e Reason for Referral * Evaluate & Treat - Unlimited Visits (Within 10 days (routine)) - Pending Review Specialty Diagnoses / Procedures Referred By Contac t Referred To Contact Sleep Medicine / Sleep Disorders Diagnoses HTN, goal below 150/90 Alva Mccabe DO [address] [place] [address] Referral ID Status Reason Start Date Expiration Date Visits Requested Visits Authorized [id number] Pending Review Specialty Services Required 09/11/2023 2 2 Question Answer Referral Priority Within 10 days (routine) Where should this appointment be scheduled? [facility] Sleep Apnea Testing and Management Does the patient snore and/or gasp at night or has been told they stop breathing at night? Unknown * Evaluate & Treat - Unlimited Visits (Within 10 days (routine)) - Pending Review Specialty Diagnoses / Procedures Referred By Contact Referred To Contact Cardiovascular Medicine / Cardiology Diagnoses HTN, goal below 150/90 Alva Mccabe DO [address] [place] [address] Referral ID Status Reason Start Date Expiration Date Visits Requested Visits Authorized [id number] Pending Review Specialty Services Required 09/11/[phone] Question Answer Referral Priority Within 10 days (routine) Where should this appointment be scheduled? [facility] To which of the following clinics are you referring your patient? General Cardiology Clinic * Evaluate & Treat - Unlimited Visits (Within 10 days (routine)) - Pending Review Specialty Diagnoses / Procedures Referred By Salvador richard Referred To Contact Neurology Diagnoses Abnormal finding on MRI of brain Chronic nonintractable headache, unspecified headache type Alva Mccabe DO [address] [place] [address] Referral ID Status Reason Start Date Expiration Date Visits Requested Visits Authorized [id number] Pending Review Specialty Services Required 09/11/[phone] Question Answer Referral Priority Within 10 days (routine) Where should this appointment be scheduled? [facility] Is this referral being placed for insurance purposes ONLY No, patient needs appointment [facility] NEUROLOGY REFERRAL QUESTIONS Other Conditions Reason for Visit * Reason Onset Date Comments Hospital Follow-Up Pt being seen for hospital F/U apt, Hospital Follow-Up 09/11/2023 Encounter Details Date Type Department Care Team (Latest Contact Info) Description 09/11/2023 1:40 PM EDT Office Visit Family [facility] [address] [place] [address] Alva Mccabe DO [address] [place] [address] Hospital discharge follow-up*; Abnormal finding on MRI of brain; HTN, goal below 150/90; Chronic nonintractable headache, unspecified headache type; Bronchiectasis without complication (HCC) Allergies Active Allergy Reactions Criticality Noted Date Comments Ciprofloxacin Rash 03/20/2011 Chest tight Dairy Digestive Low 04/28/2013 Gluten 07/26/2011 Per patient causes bloating and fatigue Levofloxacin Hypertension,Neuro complications (Please comment),Other (Please comment),Psych complications High 08/30/2017 Extreme anxiety, panic attacks, headache, chest pain, shortness of breath Penicillins Rash 11/15/2008 swelling Sulfa Antibiotics Nausea/vomiting 02/05/2018 documented as of this encounter (statuses as of 09/11/2023) Medications Medication Sig Dispensed Refills Start Date [...] Active Calcium 500 MG Tablet Take 1 Tablet by mouth in the morning and 1 Tablet before bedtime. Unsure of dose. 0 08/21/2017 Active Cholecalciferol (VITAMIN D3) 5000 units Tablet Take 1 Tab by mouth daily. 0 08/21/2017 Active fish oil concentrate (OMEGA-3) 1000 MG CAPS Take 1 Capsule by mouth in the morning and 1 Capsule before bedtime. 60 Cap 5 08/21/2017 Active vitamin a (AQUASOL-A) 64767 units CAPS One tab weekly 0 08/21/2017 Active Fluticasone Propionate 50 MCG/ACT Nasal Suspension (Flonase) Administer 1 [place] into nostril in the morning. 0 09/01/2023 Active Losartan Potassium 100 MG Oral Tablet (Cozaar) Take 1 Tablet by mouth in the morning. 0 09/01/2023 Active Spironolactone 25 MG Oral Tablet (Aldactone) Take 0.5 Tablets by mouth in the morning. 0 09/01/2023 Active Liothyronine Sodium 5 MCG Oral Tablet (Cytomel) Take 4 Tablets by mouth in the morning. 0 Active NIFEdipine ER 60 MG Oral Tablet Extended Release 24 Hour (Adalat CC) Take 1 Tablet by mouth in the morning. 0 09/01/2023 09/11/2023 Discontinued Hospital, Clinic, or Other Facility Administered Medication Ordered Dose Route Frequency Start Date End Date Status albuterol sulfate (PROVENTIL) (2.5 MG/3ML) 0.083% inhalation solution 2.5 mgIndications:Cough 2.5 mg NEBULIZER Q4H PRN 03/05/2017 Activ e documented as of this encounter (statuses as of 09/11/2023) Active Problems Problem Noted Date Diagnosed Date Bronchiectasis without complication 08/30/2017 Subjective tinnitus 11/30/2012 Hyperthyroidism 10/13/2012 Toxic diffuse goiter 05/01/2011 documented as of this encounter (statuses as of 09/11/2023) Resolved Problems Problem Noted Date Diagnosed Date Resolved Date 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 documented as of this encounter (statuses as of 09/11/2023) Immunizations Name Administration Dates Next Due TDAP (age 11 and older)(Adacel) 03/20/2011 documented as of this encounter Social History Tobacco Use Types Packs/Day Years Used Date Smoking Tobacco: Former Cigarettes 1 18 1 - 03/20/1986 Smokeless Tobacco: Never Tobacco Cessation:Counseling Given: Not Answered Comments:Stated smoking at 13 but did not smoke [...] Sign Reading Time Taken Comments Blood Pressure 142/90 09/11/2023 1:46 PM EDT Pulse 65 09/11/2023 1:46 PM EDT Temperature 36.4 C (97.6 F) 09/11/2023 1:46 PM ED T Respiratory Rate 16 09/11/2023 1:46 PM EDT Oxygen Saturation - - Inhaled Oxygen Concentration - - Weight 59 kg (130 lb) 09/11/2023 1:46 PM EDT Height 170.2 cm (5' 7") 09/11/2023 1:46 PM EDT Body Mass Index 20.36 09/11/2023 1:46 PM EDT documented in this encounter Progress Notes * Alva Mccabe, - 09/11/2023 1:44 PM EDT Subjective: Patrizia Sparrow is a 68 year old female. Chief Complaint Patient presents with Hospital Follow-Up Pt being seen for hospital F/U apt, Hospital Follow-Up There are no exam notes on file for this visit. HPI: This is a 68 year old female with PMHx as below presents with hospital follow up dx with HTN urgency PMhx Hairy cell luekemia in remission Hypothyroidism Bronchiectasis Htn Hx of migraines Presented to ER on 08/28 with headache and elevated BP and was discharged to home on 08/30 Er workup - pos covid CTH - no acute IC abnormality MRI brain - no acute abnormality; white matter changes - advised pt to see neurology as outpt MRA no renal artery stenosis Echo: EF normal HTN: started on nifedipine (stopped), losartan, aldactone - consulted with cardiology. Declines to have nurse BP check at this time. PCP Dr. Gloria [place] - functional medicine Does not do routine health screenings. Health Maintenance Due Topic Date Due COVID-19 Vaccine (1) Never done Pneumococcal Vaccine: 65+ Years (1 of 2 - PCV) Never done Hepatitis C Screening Never done Zoster Vaccines (1 of 2) Never done Colorectal Cancer Screening Never done Mammogram 06/20/2015 Depression Screening 08/08/2018 DXA Scan 10/21/2020 DTaP,Tdap,and Td Vaccines (2 - Td or Tdap) 03/20/2021 Patient Active Problem List Diagnosis Code Toxic diffuse goiter E05.00 Hyperthyroidism E05.90 Subjective tinnitus H93.19 Bronchiectasis without complication (HCC) J47.9 Current Outpatient Medications Medication Sig Dispense Refill PROGESTERONE POWD unsure of dose Ascorbic Acid (VITAMIN C) 1000 MG Tablet Take 1 Tablet by mouth in the morning. 2000 mg daily. B Complex Tablet 2 tabs daily fish oil concentrate (OMEGA-3) 1000 MG CAPS Take 1 Capsule by mouth in the morning and 1 Capsule before bedtime. 60 Cap 5 Losartan Potassium 100 MG Oral Tablet (Cozaar) Take 1 Tablet by mouth in the morning. Spironolactone 25 MG Oral Tablet (Aldactone) Take 0.5 Tablets by mouth in the morning. Liothyronine Sodium 5 MCG Oral Tablet (Cytomel) Take 4 Tablets by mouth in the morning. DHEA 50 MG PO CAPS Daily (Patient not taking: Reported on 09/11/2023) Calcium Citrate-Vitamin D 500-400 MG-UNIT CHEW Take by mouth daily. (Patient not taking: Reported on 09/11/2023) Calcium 500 MG Tablet Take 1 Tablet by mouth in the morning and 1 Tablet before bedtime. Unsure of dose. (Patient not taking: Reported on 09/11/2023) Cholecalciferol (VITAMIN D3) 5000 units Tablet Take 1 Tab by mouth daily. (Patient not taking: Reported on 09/11/2023) vitamin a (AQUASOL-A) 70870 units CAPS One tab weekly Fluticasone Propionate 50 MCG/ACT Nasal Suspension (Flonase) Administer 1 [place] into nostril in themorning. Current Facility-Administered Medications Medication Dose Route Frequency Provider Last Rate Last Admin albuterol sulfate (PROVENTIL) (2.5 MG/3ML) 0.083% inhalation solution 2.5 mg 2.5 mg Nebulizer Q4H PRN Steffany Arana CRNP 2.5 mg at 04/22/17 0734 Past Medical History: Diagnosis Date Fracture of foot, closed L Osteoporosis Other ankle sprain and strain L Other leukemia of unspecified cell type in remission 2003 At [facility] and at [facility] Past Surgical History: Procedure Laterality Date IT TECHNICAL ARCHITECT PAP SCREEN 06/27/10 negative for malignancy HYSTEROSCOPY;ENDOMETRIAL ABLAT INFORMATION 01/2008 breast , reduction and tummy tuck over seas INFORMATION 2004 left foot surgery on the 4th and 5th digit INFORMATION 12/13/2008 for removal of sutures from breast reduction and tummy tuck 12/13/ INFORMATION 07/17/2010 07/17/2010 - removal of sutures, foreign jhoan of the abdominal wall , [facility] [place] [facility] SCREENING BILATERAL 06/05/10 birad 2 Review of patient's allergies indicates: Allergen Reactions Levofloxacin Hypertension, Neuro complications (Please comment), Other (Please comment) and Psych complications Extreme anxiety, panic attacks, headache, chest pain, shortness of breath Ciprofloxacin Rash Chest tight Gluten Per patient causes bloating and fatigue Pcn [Penicillins] Rash swelling Sulfa Antibiotics Nausea/vomiting Dairy Digestive Family History Problem Relation Age of Onset Cancer Father bone Hypertension Mother Heart Disorder Grandfather (Paternal) [place] Heart Disorder Brother [place] bypass @ 54 Cancer Sister breast No Past Hx Sister Family Status Relation Status Mo Alive HTN Fa at age 62 bone cancer Sis Alive Sis Alive Bro at age 56 heart failure Elizabeth Alive Elizabeth Alive Elizabeth Alive Son Alive PGFA (Not Specified) Bro (Not Specified) Sis (Not Specified) Sis (Not Specified) Social History Socioeconomic History Marital status: Spouse name: Vahe Number of children: 4 Years of education: Not on file Highest education level: Not on file Occupational History Not on file Tobacco Use [...] on file Housing Stability: Not on file Review of Systems: As per HPI all other ROS negative. Wt Readings from Last 3 Encounters: 09/11/23 59 kg (130 lb) 05/21/18 71.7 kg (158 lb) 12/01/17 71.7 kg (158 lb) Results for orders placed or performed in visit on 12/14/19 TSH Result Value Ref Range TSH 8.89 (H) 0.27 - 4.2 uIU/mL OBJECTIVE: Physical Exam: BP 142/90 | Pulse 65 | Temp 36.4 C (97.6 F) (Tympanic) | Resp 16 | Ht 1.702 m (5' 7") | Wt 59 kg (130 lb) | BMI 20.36 kg/m | BSA 1.67 m General: alert, healthy, and no distress Head: Normocephalic, No masses, lesions, tenderness or abnormalities Eye Exam: PERRLA, extraocular movements intact, conjunctiva are pink and non- injected, sclera clear Ears: External ears normal, Canals clear, TM's Normal Oropharynx: no exudate, no erythema, lips, buccal mucosa, and tongue normal, and mucous membranes are moist Heart: regular rate & rhythm, no murmur, and no gallops Lungs: lungs clear to auscultation Abdomen: abdomen soft, non-tender, normal bowel sounds, and no masses or organomegaly Extremities: no joint deformities, effusion, or inflammation, no edema Hospital discharge follow-up (Primary) - DISCH MED RECON CUR MED LIS Abnormal finding on MRI of brain - NEUROLOGY REFERRAL OP HTN, goal below 150/90 - CARDIOLOGY REFERRAL OP - SLEEP MEDICINE REFERRAL OP Chronic nonintractable headache, unspecified headache type - NEUROLOGY REFERRAL OP Bronchiectasis without complication (HCC) Follow Up: Return in about 1 year (around 09/10/2024), or if symptoms worsen or fail to improve, for Clinic Visit. | For: Clinic Visit | Check-out note: BEATRIS for her PCP Alva Mccabe DO documented in this encounter Plan of Treatment Upcoming Encounters Date Type Department Care Team (Late st Contact Info) Description 09/16/2023 8:40 AM EDT Office Visit Neurology [facility] [address] [facility] [place] [address] Sue Merlos MD [address] [facility] [place] [address] 10/10/2023 11:00 AM EDT Office Visit Cardiology, [facility] [address] [place] [address] Maxi Espinal MD [address] [place] [address] Scheduled Referrals Name Type Priority Associated Diagnoses Orde r Schedule NEUROLOGY REFERRAL OP Referral Within 10 days (routine) Abnormal finding on MRI of brain Chronic nonintractable headache, unspecified headache type Ordered: 09/11/2023 CARDIOLOGY REFERRAL OP Referral Within 10 days (routine) HTN, goal below 150/90 Ordered: 09/11/2023 SLEEP MEDICINE REFERRAL OP Referral Within 10 days (routine) HTN, goal below 150/90 Ordered: 09/11/2023 Health Maintenance Due Date Last Done Comments Hepatitis C Screening 1975 Zoster Vaccines (1 of 2) 2007 Depression Screening 08/08/2018 08/08/2017 DTaP,Tdap,and Td Vaccines (2 - Td or Tdap) 03/20/2021 03/20/2011 Pneumococcal Vaccine: 65+ Years (1 of 1 - PCV) 2022 COVID-19 Vaccine ( - 2022-24 season) 2023 Influenza Vaccine (FLU [...] as of this encounter Visit Diagnoses Diagnosis Hospital discharge follow-up- Primary Other follow-up examination Abnormal finding on MRI of brain Nonspecific (abnormal) findings on radiological and other examination of skull and head HTN, goal below 150/90 Chronic nonintractable headache, unspecified headache type Bronchiectasis without complication (HCC) Bronchiectasis without acute exacerbation documented in this encounter
--- OUTSIDE RECORDS SUMMARY | 2023-11-15 17:27 | External Medical Summary | Summary of Care ---
Author Name Unknown Organization [facility] Address [address] [place] [address] Phone [phone] Care Team Providers Care Optical Glass Inspector Name Role Phone Alva Barnard DO Primary Care Provider [phone] Reason for Visit * Reason Onset Date Comments Mycode Lab Reorder 10/16/2023 Encounter Details Date Type Department Care Team (Late st Contact Info) Description 10/16/2023 Orders Only Outcomes Research Department [address] [place] [address] Kate Eddy CHRA MyCode Research Other*[id number]* Allergies Active Allergy Reactions Criticality Noted Date Comments Ciprofloxacin Rash 03/20/2011 Chest tight Dairy Digestive Low 04/28/2013 Gluten 07/26/2011 Per patient causes bloating and fatigue Levofloxacin Hypertension,Neuro complications (Please comment),Other (Please comment),Psych complications High 08/30/2017 Extreme anxiety, panic attacks, headache, chest pain, shortness of breath Penicillins Rash 11/15/2008 swelling Sulfa Antibiotics Nausea/vomiting 02/05/2018 documented as of this encounter (statuses as of 10/16/2023) Medications Medication Sig Dispensed Refills Start Date [...] Cap 5 08/21/2017 Active vitamin a (AQUASOL-A) 78617 units CAPS One tab weekly 0 08/21/2017 Acti ve Fluticasone Propionate 50 MCG/ACT Nasal Suspension (Flonase) Administer 1 [place] into nostril in the morning. 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 documented in this encounter Plan of Treatment Upcoming Encounters Date Type Department Care Team (Late st Contact Info) Description 12/03/2023 1:00 PM EDT Office Visit Cardiology, [facility] [address] [place] [address] Saroj Young DO [address] [place] [address] Scheduled Orders Name Type Priority Associated Diagnoses Orde r Schedule MYCODE SUBSEQUENT ADULT Lab Routine MyCode Research Other*[id number] Every 6 Months for 2 Occurrences starting 10/16/2023 until 11/04/2024 Health Maintenance Due Date Last Done Comments [...] as of this encounter Visit Diagnoses Diagnosis MyCode Research Other*[id number]- Primary documented in this encounter Care Teams Optical Glass Inspector Relationship Specialty Start Date End Date Alva Barnard DO [address] [address] PCP - General Family Medicine 09/16/23 documented as of this encounter
--- OUTSIDE RECORDS SUMMARY | 2023-11-15 17:27 | External Medical Summary ---
Author Name Unknown Address Unknown Organization [id number]:[place] [place] [address] [place] [address] Laboratory Report Ordering Provider Test Date Status IFTIKHARMARGARETSHERRY 09/16/2023 09:41:21 Final Observation Date Value Abnormality Reference (Units ) Status Erythrocyte sedimentation rate by Photometric method 09/16/2023 09:41:21 31 Above high normal <30 (mm/hour) Final Performing Location [facility] [place] [address] [place] [place] [address]
--- OUTSIDE RECORDS SUMMARY | 2023-11-15 17:27 | External Medical Summary ---
Author Name Unknown Address Unknown Organization [id number]:[facility]ORY [facility] [place] [address] [place] [address] Laboratory Report Ordering Provider Test Date Status IFTIKHARZIA 09/16/2023 09:41:21 Final Observation Date Value Abnormality Reference (Units ) Status Borrelia burgdorferi IgG and IgM [Interpretation] in Serum by Immunoassay 09/16/2023 09:41:21 Negative Negative Final Performing Location LABORATORY [facility] [place] - [address] [place] [address]
--- OUTSIDE RECORDS SUMMARY | 2023-11-15 17:27 | External Medical Summary ---
Author Name Unknown Address Unknown Organization K01:LABORATORY [address] [facility] [address] Laboratory Report Ordering Provider Test Date Status ZIA BUITRAGO 09/16/2023 09:41:21 Final Observation Date Value Abnormality Reference (Units ) Status Nuclear IgG Ab [Ratio] in Serum by Immunoassay 09/16/2023 09:41:21 Negative Negative Final DNA double strand Ab [Presence] in Serum 09/16/2023 09:41:21 Negative Negative Final DOUBLE STRANDED DNA VALUE - [facility] 09/16/2023 09:41:21 1.6 <20 (IU/mL) Final Extractable nuclear Ab [Presence] in Serum 09/16/2023 09:41:21 Negative Negative Final Nuclear IgG Ab [Ratio] in Serum by Immunoassay 09/16/2023 09:41:21 0.3 <0.7 (Ratio) Final Screening is based on detect ion of the following antibodies: dsDNA, U1-CLIENT EVALUATOR (RNP70, A, C), SS-A/Ro, SS-B / La, Charlene-1, Scl-70, Centromere B proteins and Sm proteins. In conjunction with clinical findings, this can aid in the diagnosis of systemic lupus erythematosous (SLE), mixed connective tissue disease (MCTD), Sjogren's syndrome, scleroderma and polymyositis/dermatomyositis.
However, a negative result does not rule out systemic rheumatic or other autoimmune disease. If clinically suspected, further evaluation and testing may be necessary. Please consult with Rheumatology Department.
Methodology: Fluorescent Enzyme Immunoassay. Performing Location LABORATORY [address] [facility] [address]
--- OUTSIDE RECORDS SUMMARY | 2023-11-15 17:27 | External Medical Summary | Summary of Care ---
Author Name Unknown Organization [facility] Address [address] [place] [address] Phone [phone] Care Team Providers Care Roof Plumber Name Role Phone Alva Barnard DO Primary Care Provider [phone] Reason for Visit * Reason Comments Outpatient Testing Encounter Details Date Type Department Care Team ([facility] st Contact Info) Description 09/16/2023 10:40 AM EDT Laboratory Laboratory [facility] [address] [place] [address] [facility] [address] [place] [address] Arrived Allergies Active Allergy Reactions Criticality Noted Date [...] Cap 5 08/21/2017 Active vitamin a (AQUASOL-A) 20229 units CAPS One tab weekly 0 08/21/2017 Acti ve Fluticasone Propionate 50 MCG/ACT Nasal Suspension (Flonase) Administer 1 [place] into nostril in the morning. 0 09/01/2023 [...] as of this encounter Plan of Treatment Upcoming Encounters Date Type Department Care Team (Late st Contact Info) Description 10/01/2023 9:00 AM EDT NeuroDiagnostic Study Neurophysiology [facility] [address] [facility] [place] [address] Sp, Neurophys Tech [address] [facility] [place] [address] 10/10/2023 11:00 AM EDT Office Visit Cardiology, [facility] [address] [place] [address] Maxi Espinal MD [address] [place] [address] Health Maintenance Due Date Last Done Comments [...] filedocumented as of this encounter Care Teams Roof Plumber Relationship Specialty Start Date End Date Alva Barnard DO [address] [place] [address] PCP - General Family Medicine 09/16/23 documented as of this encounter
--- NOTE | 2023-11-15 17:50 | Cardiology Consultation ---
Date of Consultation November 15, 2023 Assessment & Plan (1) Hypertensive emergency without congestive heart failure: (2) Elevated troponin: (3) H/O medication noncompliance: (4) Headache: (5) Vomiting: (6) Hypertensive urgency: Plan 68-year-old female admitted with hypertensive emergency Initial blood pressure 243/119 Longstanding hypertension noted along with noncompliance. Mild elevation in high-sensitivity troponin observed, asymptomatic, and without acute EKG change. I am more suspicious of possible adverse reaction to nifedipine in August. Consider the following: Telmisartan 20 mg/day to start Amlodipine 2.5 mg/day to start Spironolactone 12.5 mg/day Bradycardia likely precludes the use of carvedilol Avoid thiazides, RE: hyponatremia, and Clonidine, RE: noncompliance, concern for withdrawal syndrome, typical SCOUTS side effects Outpatient stress testing I spent a total of 47 minutes on the date of service in preparation, delivery, and documentation of the care provided to this patient excluding any time spent in the performance of separately billed services. This visit was a split-shared visit with the substantive portion of the medical decision making performed by the supervising opera singer/billing provider. Supervising Physician Co-Signing Physician Notes I have reviewed the advanced practitioner's documentation on the date of service referenced in note, and I agree with, and take responsibility for the plan of care. I spent a total of [20] minutes coordinating, documenting, and providing care for this patient excluding time spent in the performance of separately billed services or time spent by another provider. 68-year-old female with known history of hypertension which is uncontrolledPresents to the emergency room with headache noted to have significant elevated blood pressure being treated for hypertensive emergency. Patient presented with similar complaints in August headache significantly elevated blood pressure elevated troponins started on multiple blood pressure medications. Patient reports that she took them only for 1 week she noted significant slowing in her decision making. Also states that this was resolved after she stopped taking the medicationns. Reports significant stress and anxiety in her personal life. Has been going through a divorce which has been stressful. Unable to sleep at night. Does not want to take any anxiety medications is worried that it will affect her ability to do her duties at her job. On exam blood pressure elevated no lower extremity edema Heart S1-S2 without murmur Impression and plan Hypertensive emergency Elevated troponins in the setting of hypertension demand supply ischemia Headache Anxiety Patient does not like to take medications, very worried about the side effects.prefers to control without medicationsdiscussed importance of having good blood pressure control , risk of stroke and hypertension tensive heart disease with uncontrolled blood pressure She will also need outpatient stress testing History of Present Illness Reason for Consultation: Hypertensive urgency Requesting Physician: Maciej Attending Physician: Dr. Tammy MD History of Present Illness 68-year-old female who is being seen at the request of the [facility] Hospitalist Service, Re: hypertensive urgency. Patient is listed in the [facility] EMR as Dayanara Sparrow, Patient admitted to [facility] in August 2023 with headache, nausea, observed elevated blood pressures despite taking Maxide in excess. Initial blood pressure on presentation was 224/127. Mild hypokalemia (3.3) noted on presentation, along with mild hyponatremia (133). Head CT negative for acute findings. Chest x-ray without acute cardiopulmonary abnormality. EKG revealed sinus rhythm at 68 bpm with left atrial enlargement voltage criteria for LVH, nonspecific STT wave abnormality. QTc 459 ms. A second EKG revealed sinus bradycardia at 57 bpm with sinus arrhythmia, LVH, anterolateral T wave inversion. Initial high-sensitivity troponin normal at 11.8, rising to 30.5 and 40.1. Resting echocardiography revealed normal ejection fraction with no significant valvular issues. Patient prescribed Losartan 100 mg/day, nifedipine 60 mg/day, and spironolactone 12.5 mg/day. Triamterene-HCTZ and potassium chloride were stopped. Patient notably tested positive for Covid during that admission. Patient notes "I didn't follow through with my medications because they gave me side effects, effecting my decision making." She took the above recommended regimen for approximately one week and notes taking Maxzide as needed for 'spikes" in blood pressure. she notes getting a headache then with difficulty sleeping night. She notes nausea and vomiting Friday. Blood pressure on presentation to the ER was 243/119. Sublingual nitroglycerin was administered in the ER with SBP dropping to 159, associated with dizziness. EKG on presentation revealed normal sinus rhythm at [address] head and CXR without acute process. Telemetry benign thus far. Sodium was 135. Potassium was low at 3.3. Creatinine was normal at 0.74. High sensitivity troponin 14.6 pg/mL. 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 No recent change in dyspnea or exercise tolerance. No chest pain or discomfort. No tachypalpitat ions. No orthopnea or PND. No lower extremity peripheral edema. No syncope. No fevers or chills. No melena or hematochezia. 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 Father with bone cancer. One sister has 3 small brain aneurysms. Paternal grandfather with an [place] in his mid 50s. Brother with an [place] in his 50s. Social History: Reformed smoker having smoked up to 1 pack/day x 15 years, quitting approximately 30 years ago. No significant alcohol consumption. No illegal drug use recently, remote marijuana use. Originally from [place]. . 4 children, 7 grandchildren. Works at [employer]. Allergies Allergy/AdvReac Type Severity Reaction Status Date / Time Penicillins Allergy Severe SWELLING Verified 08/29/23 15:33 Cipro Allergy Intermediate CHEST Verified 02/04/18 13:01 TIGHTNESS ciprofloxacin [Cipro] Allergy Intermediate CHEST Verified 08/29/23 15:33 TIGHTNESS levofloxacin Allergy Unknown HOSPITALIZE Unverified 08/29/23 15:33 D Sulfa (Sulfonamide Allergy Unknown vomiting, Unverified 08/29/23 15:33 Antibiotics) migraine gluten AdvReac Intermediate BLOATING, Unverified 08/29/23 15:33 FATIGUE Home Medications Medication Instructions Recorded Confirmed Type liothyronine 25 mcg tablet 20 mcg PO DAILY 08/29/23 11/15/23 History multivitamin 1 tab PO DAILY 08/29/23 11/15/23 History omega-3 fatty acids 1,000 mg 0 mg PO DAILY 08/29/23 11/15/23 History capsule potassium chloride 20 mEq oral 20 meq PO MOWEFR 08/29/23 11/15/23 History packet (Klor-Con) vitamin B complex 1 tab PO DAILY 08/29/23 11/15/23 History fluticasone propionate 50 1 spray NA DAILY #0 grams 09/01/23 11/15/23 Rx mcg/actuation nasal spray,suspension losartan 100 mg tablet 100 mg PO QAM #30 tabs 09/01/23 11/15/23 Rx nifedipine 60 mg tablet,extended 60 mg PO QAM #30 tabs 09/01/23 11/15/23 Rx release sodium chloride 0.65 % nasal spray 2 spray NA TID PRN #0 mL 09/01/23 11/15/23 Rx aerosol (Saline Mist) spironolactone 25 mg tablet 12.5 mg (1/2 x 25 mg) PO DAILY #30 09/01/23 11/15/23 Rx tabs Patient History Surgical History History of abdominoplasty Family History Brother Heart disease fatal [place] age 56 Mother FH: brain aneurysm Hypertension Grandfather (Paternal) Heart disease Grandmother (Maternal) Hypertension Other Cancer Social History Smoking Status: Former smoker Tobacco Type: Cigarettes Smoking End Date: 30 years ago; Second Hand Exposure: Yes; Do You Dip or Chew Tobacco: No; Hx Alcohol Use: Yes Alcohol Intake Frequency: 2-4 x/Month Hx Substance Use: No Preferred Language: Korean Communication Ability: Effective Radioisotope Technologist Required: No Beliefs That Will Affect Care: None Current Living Situation: Family Current Living Situation Comment: Living with daughter Other Information That Helps Us Care for You: No Feels Safe at Home: Yes Safety Concerns: Feels Safe At This Time Assistive Devices: Denture - Upper, Denture - Lower and Glasses Review of Systems Review of Systems: Complete Review of Systems is as stated above, negative, or noncontributory Physical Exam Physical Exam: General: A&Ox3. NAD. HENT: Normocephalic. Atraumatic. Eyes: PER. Conjunctiva pink, sclera clear. Neck: Left carotid bruit. No JVD. No HJR. Heart: RRR. Soft systolic murmur heard at the left upper sternal border. No diastolic murmur. No rub. No gallop. PMI is nondisplaced. Lungs: Diminished. Clear to auscultation. Abdomen: +BS. No organomegaly. Extremities: No edema. Neuro: No focal deficits. Pulses: radial=2/4, posterior tibial=2/4. Results & Data Vital Signs (Past 12 Hours) Vital Signs Temp Pulse Pulse Resp BP BP Pulse Ox 11/15/23 16:16 68 11/15/23 15:37 36.8 C 71 18 217/118 H 98 11/15/23 15:03 62 20 11/15/23 14:53 193/114 H 11/15/23 14:52 11/15/23 14:48 192/123 H 11/15/23 14:45 70 21 11/15/23 14:30 68 19 11/15/23 14:00 65 18 193/124 H 95 11/15/23 13:36 69 18 95 11/15/23 13:21 67 12 95 11/15/23 12:30 77 15 96 11/15/23 12:06 74 22 94 11/15/23 12:00 76 21 160/115 H 92 11/15/23 11:48 82 19 96 11/15/23 10:42 71 20 97 11/15/23 10:38 85 11/15/23 10:31 77 19 222/129 H 95 11/15/23 10:31 11/15/23 10:04 36.7 C 86 18 243/119 H 97 Pulse Ox O2 Del Method O2 Del Method 11/15/23 16:16 11/15/23 15:37 Room Air 11/15/23 15:03 11/15/23 14:53 11/15/23 14:52 95 Room Air 11/15/23 14:48 11/15/23 14:45 11/15/23 14:30 11/15/23 14:00 11/15/23 13:36 11/15/23 13:21 11/15/23 12:30 11/15/23 12:06 11/15/23 12:00 Room Air 11/15/23 11:48 11/15/23 10:42 11/15/23 10:38 11/15/23 10:31 Room Air 11/15/23 10:31 Room Air 11/15/23 10:04 Room Air Laboratory Results Cardiac Enzymes 11/15/23 Range/Units 10:25 Troponin I High Sens 14.6 H (0-14) pg/ml Coagulation 11/15/23 Range/Units 10:25 PT 10.8 (9.0-12.0) Seconds APTT 26 (21-31) Seconds CBC 11/15/23 Range/Units 10:25 WBC 5.43 (4.8-10.8) K/ul RBC 5.17 (4.20-5.40) M/uL Hgb 15.6 (12.0-16.0) g/dl Hct 45.7 (37.0-47.0) % Plt Count 229 (130-400) K/uL Neut # (Auto) 4.96 (1.40-6.50) K/uL Lymph # (Auto) 0.38 L (1.20-3.40) K/uL [place] # (Auto) 0.06 L (0.11-0.59) K/uL Eos # (Auto) 0.00 (0.00-0.50) K/uL Baso # (Auto) 0.01 (0.00-0.20) K/uL Comprehensive Metabolic Panel 11/15/23 Range/Units 10:25 Sodium 135 L (136-145) mmol/L Potassium 3.3 L (3.5-5.1) mmol/L Chloride 97 L (98-107) mmol/L Carbon Dioxide 28 (21-32) mmol/L BUN 14 (6-23) mg/dl Creatinine 0.74 (0.6-1.2) mg/dl Glucose 159 H (70-99(Fasting)) mg/dl Calcium 10.1 (8.6-10.3) mg/dl Intake and Output 11/15/23 11/15/23 11/15/23 06:59 14:59 22:59 Intake Total 100 / 100 Balance 100 / 100 Intake: IV 100 / 100 Acetaminophen 1,000 mg In 100 100 / 100 ml @ 400 mls/hr IV NOW STA Rx#: [id number] Other: Weight 58 kg 58.995 kg Weight Measurement Method [facility] Patient Weight 11/16/23 06:59 Weight 58.995 kg Diagnostic Findings Resting echocardiography on August 30, 2023: Normal LV and RV systolic function. Sigmoid septum. EF 60-65%. Left atrium was mildly dilated. Mild mitral regurgitation Renal Duplex on August 31, 2023: Kidneys normal in size, contour, cortical thickness, and echogenicity. No evidence of renal artery stenosis. 1.9 cm left renal cyst. (4) Headache Headache type: other vascular headache Qualified Code(s): G44.1 - Vascular headache, not elsewhere classified (5) Vomiting Nausea presence: with nausea Vomiting type: unspecified Qualified Code(s): R11.2 - Nausea with vomiting, unspecified
[2023-11-15] MEDS: ACETAMINOPHEN 325 MG TAB PO PRN (20:31)
[2023-11-16] MEDS: LIOTHYRONINE SODIUM 5 MCG TAB PO SCH (06:28)
--- NOTE | 2023-11-16 07:26 | Electrocardiogram Report ---
Test Reason : Blood Pressure : / mmHG Vent. Rate : 076 BPM Atrial Rate : 076 BPM P-R Int : 144 ms QRS Dur : 090 ms QT Int : 428 ms P-R-T Axes : 090 082 084 degrees QTc Int : 481 ms Normal sinus rhythm Normal ECG When compared with ECG of 31-AUG-2023 05:56, Nonspecific T wave abnormality no longer evident in Inferior leads Confirmed by Milton Lozada ([id number]) on 11/16/2023 7:25:24 AM Referred By: REFERRED SELF Confirmed By:Tucker Lozada
[2023-11-16 08:21] LABS: Hematocrit (blood only) 42.2 % (37.0-47.0); Hemoglobin 14.1 g/dl (12.0-16.0); Mean Corpuscular Hemoglobin 29.9 pg (25.0-34.0); Mean Corpuscular Hgb Conc 33.4 g/dL (32.0-36.0); Mean Corpuscular Volume 89.4 fL (80.0-100.0); Mean Platelet Volume 9.6 fL (9.4-12.4); Platelet Count 228 K/uL (130-400); RDW Coefficient of Variation 12.8 % (11.5-14.5); Red Blood Count 4.72 M/uL (4.20-5.40); White Blood Count 4.85 K/ul (4.8-10.8)
[2023-11-16] MEDS: amLODIPine BESYLATE 5 MG TAB PO ONE (08:24)
[2023-11-16] MEDS: LOSARTAN POTASSIUM 25 MG TAB PO SCH (08:25)
[2023-11-16] MEDS: FLUTICASONE PROPIONATE NA SPR 16 GM BTL SCH (08:25)
[2023-11-16] MEDS: VITAMIN B COMPLEX TAB PO SCH (08:25)
[2023-11-16] MEDS: SPIRONOLACTONE 12.5 MG TAB PO SCH (08:25)
[2023-11-16] MEDS: MULTIVITAMIN TAB PO SCH (08:25)
[2023-11-16 08:40] LABS: Magnesium 2.2 mg/dl (1.7-2.4); Phosphorus 4.1 mg/dl (2.5-4.9)
[2023-11-16] MEDS ORDERED: NIFEdipine EXTENDED REL 30 MG TABCR PO SCH (09:00)
[2023-11-16 09:54] LABS: Calcium 9.2 mg/dl (8.6-10.3); Creatinine Clr Calc Pharmacy 69.4 ml/min; Est GFR (African American) 96.3 ml/min; Est GFR (Non-African American) 83.1 ml/min; Potassium 3.6 mmol/L (3.5-5.1)
--- NOTE | 2023-11-16 11:22 | Cardiology Progress Note ---
Date of Service November 16, 2023 Assessment & Plan (1) Hypertensive emergency without congestive heart failure: (2) Elevated troponin: (3) H/O medication noncompliance: (4) Headache: (5) Vomiting: (6) Hypertensive urgency: Plan 68-year-old female admitted with hypertensive emergency triggered by medication noncompliance and an emotional stressor. Initial blood pressure 243/119 Longstanding hypertension noted along with noncompliance. Mild elevation in high-sensitivity troponin observed, asymptomatic, and without acute EKG change. 1. Continue low dose ARB, amlodipine, and spironolactone. 2. Outpatient cardiology follow-up and stress testing 3. Please contact with any questions or concerns. I spent a total of 27 minutes on the date of service in preparation, delivery, and documentation of the care provided to this patient excluding any time spent in the performance of separately billed services. This visit was a split-shared visit with the substantive portion of the medical decision making performed by the supervising blanket cutter hand/billing provider. Admission and Anticipated Discharge Date Admission Date: November 15, 2023 Supervising Physician Co-Signing Physician Notes I have reviewed the advanced practitioner's documentation on the date of service referenced in note, and I agree with, and take responsibility for the plan of care. I spent a total of [15] minutes coordinating, documenting, and providing care for this patient excluding time spent in the performance of separately billed services or time spent by another provider. 68-year-old female with known history of hypertension which is uncontrolled, noncompliant with medications significant anxiety and stress . Similar presentation in August on discharge took antihypertensives for 1 week and then discontinued because she was feeling foggy and it was interfering with her daily functioning. Blood pressure has improved Impression and plan Hypertensive emergency Elevated troponins in the setting of hypertension demand supply ischemia Headache Anxiety Blood pressure slightly better will need to continue with her antihypertensive medications discussed in detail the importance of taking her medications regularly. Long-term this will increase her left ventricular hypertrophy and cause hypertensive heart disease and increases risk of stroke. Patient is very concerned that these medications are interfering with her daily functioning. Needs close follow-up as outpatient with cardiology. Also needs stress test as outpatient She has a follow-up appointment later this month. Please call with questions Subjective Patient seen and examined. Chart, medications, telemetry reviewed. Feeling OK. 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 This morning patient received losartan 25 mg, amlodipine 2.5 mg, and spironolactone 12.5 mg. Her blood pressure has improved, 144/81 for the last reading. Hyponatremia and hypokalemia have been corrected. Kidney function is stable with a BUN of 12 and a creatinine of 0.75 Telemetry: Sinus in the 60s and 70s Review of Systems Review of Systems: Complete Review of Systems is as stated above, negative, or noncontributory Physical Exam Physical Exam: General: A&Ox3. NAD. HENT: Normocephalic. Atraumatic. Eyes: PER. Conjunctiva pink, sclera clear. Neck: Left carotid bruit. No JVD. No HJR. Heart: RRR. Soft systolic murmur heard at the left upper sternal border. No diastolic murmur. No rub. No gallop. PMI is nondisplaced. Lungs: Diminished. Clear to auscultation. Abdomen: +BS. No organomegaly. Extremities: No edema. Neuro: No focal deficits. Pulses: radial=2/4, posterior tibial=2/4. Results & Data Vital Signs (Past 12 Hours) Vital Signs Temp Pulse Pulse Resp BP Pulse Ox O2 Del Method 11/16/23 07:42 36.8 C 73 15 144/81 H 96 Room Air 11/16/23 07:39 75 11/16/23 07:07 75 144/81 H 11/16/23 06:00 72 155/83 H 11/16/23 05:17 69 20 165/98 H Room Air 11/16/23 02:56 36.9 C 82 18 140/85 96 Room Air 11/16/23 01:33 74 18 141/87 H Laboratory Results Coagulation 11/15/23 Range/Units 10:25 PT 10.8 (9.0-12.0) Seconds APTT 26 (21-31) Seconds CBC 11/15/23 11/16/23 Range/Units 10:25 07:23 WBC 4.85 (4.8-10.8) K/ul RBC 4.72 (4.20-5.40) M/uL Hgb 14.1 (12.0-16.0) g/dl Hct 42.2 (37.0-47.0) % Plt Count 228 (130-400) K/uL Neut # (Auto) 4.96 (1.40-6.50) K/uL Lymph # (Auto) 0.38 L (1.20-3.40) K/uL [place] # (Auto) 0.06 L (0.11-0.59) K/uL Eos # (Auto) 0.00 (0.00-0.50) K/uL Baso # (Auto) 0.01 (0.00-0.20) K/uL Comprehensive Metabolic Panel 11/16/23 Range/Units 07:23 Sodium 138 (136-145) mmol/L Potassium 3.6 (3.5-5.1) mmol/L Chloride 101 (98-107) mmol/L Carbon Dioxide 26 (21-32) mmol/L BUN 12 (6-23) mg/dl Creatinine 0.75 (0.6-1.2) mg/dl Glucose 105 H (70-99(Fasting)) mg/dl Calcium 9.2 (8.6-10.3) mg/dl Intake and Output 11/15/23 11/16/23 11/16/23 22:59 06:59 14:59 Intake Total 167.499 / 267.499 0 / 267.499 82.501 / 82.501 Output Total Balance 166.499 / 266.499 0 / 266.499 82.501 / 82.501 Intake: IV 167.499 / 267.499 0 / 267.499 82.501 / 82.501 niCARdipine 25 mg In Sodium 167.499 / 167.499 0 / 167.499 82.501 / 82.501 Chloride 0.9% 240 ml @ 5 MG/HR 50 mls/hr IV .Q5H [facility] Rx#: [id number] Output: # Bowel Movements Other: Other Intake Source sips sips # Unmeasured Voids 06 09 Weight 58.995 kg 59.6 kg Weight Measurement Method [facility] Built in [facility] (4) Headache Headache type: other vascular headache Qualified Code(s): G44.1 - Vascular headache, not elsewhere classified (5) Vomiting Nausea presence: with nausea Vomiting type: unspecified Qualified Code(s): R11.2 - Nausea with vomiting, unspecified
--- NOTE | 2023-11-16 12:53 | Hospitalist Progress Note ---
Date of Service November 16, 2023 Assessment & Plan (1) Hypertensive emergency without congestive heart failure: (2) Headache: (3) H/O medication noncompliance: (4) Vomiting: Plan: This is a 68 year old female with PMH or poorly controlled HTN, hypothyroidism, hairy cell leukemia in 2002 in remission, bronchiectasis, history migraine headache presented to ER with complaint of headache, nausea and elevated blood pressure x 1 day. Hypertensive emergency Presenting with nausea, vomiting, headache x 1 day Initial BP 243/119 on presentation Initial trop 14.6, no chest pain, EKG pending CT head without acute abnormalities, CXR without acute disease Similar admission in August - echo with EF 60-65%. Right ventricle systolic function is normal. Left ventricle systolic function is normal. Left atrium is mildly dilated. Mild mitral regurgitation Was seen by cards and Losartan dose increased to 100 mg daily, Nifedipine dose increased to 60 mg daily and was started on Aldactone 12.5 mg daily - only took these for 1 week after discharge due to them making her feel cognitively "slow" Takes BP measurement at home, average SBP 170 but not unusual to be above 200 Patient was started on nicardipine drip during the hospitalization. Cardiology was consulted for comanagement Patient is started on amlodipine, spironolactone and telmisartan Continue to monitor blood pressure Discussed about possible establishment of remote blood pressure monitoring at home. Patient is agreeable. (5) Bronchiectasis: Plan: At baseline, room air (6) History of leukemia: Plan: 2002, s/p chemo, in remission (7) Hypothyroidism: Plan: Continue liothyronine DVT Ppx: SQ lovenox Code status: FULL PCP: Akil Dispo: Admitted to PCU Time spent evaluating patient, direct bedside care, chart review, placing orders, interpretation of diagnostic studies, discussion with consultants, patient, and family members, as well as other required patient management activities is 50 minutes Please note the above document was generated using voice recognition software. It may contain grammatical, syntax or spelling errors. Any formal questions or concerns about the content, text or information contained within the body of this dictation should be directly addressed to the provider for clarification Admission and Anticipated Discharge Date Admission Date: November 15, 2023 Subjective She is comfortably sitting up on the bed; not in distress. She denies any headache at this time. No complaint of chest pain, shortness of breath. Nicardipine drip has been titrated down. Review of Systems Review of Systems: All systems reviewed & are unremarkable except as noted in Subjective Physical Exam Physical Exam: Constitutional: WD/WN, vitals as above, NAD, sitting up in bed, pleasant, conversing easily Respiratory: normal respiratory effort, lungs clear to auscultation, no wheeze, rales, rhonchi. Normal insp/exp effort, no accessory muscle use Cardiovascular: RRR, no murmur, no edema Vessels: no JVD or carotid bruit Chest: normal inspection of chest Abdomen: normal bowel sounds, soft, nontender, no hepatosplenomegaly Musculoskeletal: no cyanosis or clubbing, extremities motor strength 5/5 Skin: no rashes, warm and dry normal turgor Neurologic: PERRL, EOMI, accommodation nl, no face palsy, no dysarthria CN's II- XI intact bilaterally and moves all extremities Psychiatric: A+Ox3, euthymic affect Results & Data Results & Data Vital Signs (Past 12 Hours) Vital Signs Temp Pulse Pulse Resp BP Pulse Ox O2 Del Method 11/16/23 12:19 76 150/95 H 11/16/23 11:35 36.8 C 65 15 174/98 H 96 Room Air 11/16/23 07:42 36.8 C 73 15 144/81 H 96 Room Air 11/16/23 07:39 75 11/16/23 07:07 75 144/81 H 11/16/23 06:00 72 155/83 H 11/16/23 05:17 69 20 165/98 H Room Air 11/16/23 02:56 36.9 C 82 18 140/85 96 Room Air 11/16/23 01:33 74 18 141/87 H (2) Headache Headache type: other vascular headache Qualified Code(s): G44.1 - Vascular headache, not elsewhere classified (4) Vomiting Nausea presence: with nausea Vomiting type: unspecified Qualified Code(s): R11.2 - Nausea with vomiting, unspecified
[2023-11-17 06:24] LABS: Hematocrit (blood only) 38.7 % (37.0-47.0); Mean Corpuscular Hemoglobin 30.1 pg (25.0-34.0); Mean Corpuscular Hgb Conc 33.6 g/dL (32.0-36.0); Mean Corpuscular Volume 89.6 fL (80.0-100.0); Mean Platelet Volume 9.1 fL (9.4-12.4); Platelet Count 196 K/uL (130-400); RDW Coefficient of Variation 12.6 % (11.5-14.5); RDW Standard Deviation 41.7 fL (36.4-46.3); Red Blood Count 4.32 M/uL (4.20-5.40); White Blood Count 4.86 K/ul (4.8-10.8)
[2023-11-17 06:33] LABS: BUN Creatinine Ratio 29.1 (10-20); Creatinine Clr Calc Pharmacy 63.1 ml/min; Est GFR (African American) 90.4 ml/min
[2023-11-17] MEDS: POTASSIUM CHLORIDE PWD 20 MEQ PACK PO SCH (09:03)
[2023-11-17] MEDS: LOSARTAN POTASSIUM 50 MG TAB PO SCH (09:29)
[2023-11-17] MEDS: amLODIPine BESYLATE 5 MG TAB PO SCH (09:29)
--- NOTE | 2023-11-17 13:15 | Discharge Summary ---
Date of Service November 17, 2023 Admission HPI Per Admitting Provider This is a 68yo F with PMH of uncontrolled HTN, bronchiectasis, history of toxic diffuse goiter, hairy cell leukemia in 2002 in remission and other medical problems listed below who presents with elevated blood pressure on home readings. Endorses high blood pressure for 5 years. Over the past few days, knows her blood pressure has been higher because she has a headache, nausea and decreased appetite. Threw up at home for 24 hours prior to arrival. Was admitted for hypertensive urgency this past August and was started on losartan 100mg daily and nifedipine 60mg daily. ECHO at that time showed EF 60-65%, right ventricle systolic function is normal. Left ventricle systolic function is normal. Left atrium is mildly dilated. Mild mitral regurgitation. States she felt worse when taking the green one and only took the two meds for 1 week after previous admission in August before stopping them. 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 Has a blood pressure cuff at home and top number is 200 but feels "good and normal" is when the top number is around 179. Lives alone. Only meds she is taking besides supplements is liothyronine. No F/C, CP, SOB, abd pain, dysuria, diarrhea or constipation. Admission Exam Per Admitting Provider GENERAL APPEARANCE: AxOx4, generally well-appearing female, mild discomfort reported HEENT: NC, AT. MMM. EOMI, clear conjunctiva, oropharynx clear. NECK: Supple without lymphadenopathy. No stiffness or restricted ROM. HEART: Normal rate and regular rhythm, normal S1/S1, no m/r/g LUNGS: CTAB, moving air well. No crackles or wheezes are heard. ABDOMEN: Soft, nontender, nondistended with good bowel sounds heard. BACK: No CVAT, no obvious deformity. EXTREMITIES: Without cyanosis, clubbing or edema. NEUROLOGICAL: Grossly nonfocal. Alert and oriented, moving all 4 extremities. CN not formally tested but appear grossly intact. Skin: Warm and dry without any rash. Principal Diagnosis Hypertensive urgency Discharge Exam Constitutional: WD/WN, vitals as above, NAD, sitting up in bed, pleasant, conversing easily Respiratory: normal respiratory effort, lungs clear to auscultation, no wheeze, rales, rhonchi. Normal insp/exp effort, no accessory muscle use Cardiovascular: RRR, no murmur, no edema Vessels: no JVD or carotid bruit Chest: normal inspection of chest Abdomen: normal bowel sounds, soft, nontender, no hepatosplenomegaly Musculoskeletal: no cyanosis or clubbing, extremities motor strength 5/5 Skin: no rashes, warm and dry normal turgor Neurologic: PERRL, EOMI, accommodation nl, no face palsy, no dysarthria CN's II- XI intact bilaterally and moves all extremities Psychiatric: A+Ox3, euthymic affect Discharge Data Allergies Allergy/AdvReac Type Severity Reaction Status Date / Time Penicillins Allergy Severe SWELLING Verified 08/29/23 15:33 Cipro Allergy Intermediate CHEST Verified 02/04/18 13:01 TIGHTNESS ciprofloxacin [Cipro] Allergy Intermediate CHEST Verified 08/29/23 15:33 TIGHTNESS levofloxacin Allergy Unknown HOSPITALIZE Unverified 08/29/23 15:33 D Sulfa (Sulfonamide Allergy Unknown vomiting, Unverified 08/29/23 15:33 Antibiotics) migraine gluten AdvReac Intermediate BLOATING, Unverified 08/29/23 15:33 FATIGUE Consultations 11/15/23 11:41 ED Decision to Admit Stat 11/15/23 12:07 Consult Cardiology Routine Ordered Studies 11/15/23 10:28 CT head/brain wo con Stat Hospital Course (1) Hypertensive emergency without congestive heart failure: (2) Headache: (3) H/O medication noncompliance: (4) Vomiting: (5) Bronchiectasis: (6) History of leukemia: (7) Hypothyroidism: This is a 68 year old female with PMH or poorly controlled HTN, hypothyroidism, hairy cell leukemia in 2002 in remission, bronchiectasis, history migraine headache presented to ER with complaint of headache, nausea and elevated blood pressure x 1 day. Hypertensive Urgency Presenting with nausea, vomiting, headache x 1 day Initial BP 243/[address] head without acute abnormalities, CXR without acute disease Similar admission in August - with EF 60-65%. Right ventricle systolic function is normal. Left ventricle systolic function is normal. Left atrium is mildly dilated. Mild mitral regurgitation Was seen by cards and Losartan dose increased to 100 mg daily, Nifedipine dose increased to 60 mg daily and was started on Aldactone 12.5 mg daily - only took these for 1 week after discharge due to them making her feel cognitively "slow" Takes BP measurement at home, average SBP 170 but not unusual to be above 200 During the hospitalization, Patient was started on nicardipine drip during the hospitalization. Cardiology was consulted for comanagement Patient is started on amlodipine 2.5 mg, spironolactone 12.5 mg and losartan 25 mg once a day(Telmisartan 20mg recommended by cardiology was not a value on formulary). Patient's blood pressure gradually improved on the medications. Patient did not want to try titrate the medication further on more discussion. We discussed risks regarding persistent high blood pressures which includes increased risks of stroke, heart attack, kidney failure. Patient verbalized and understood the risks. Patient wants to try low-dose of medication initially and titrate further if she is able to tolerate them as outpatient. Discussed regarding home blood pressure monitoring. Discussed regarding follow-up with her primary care doctor and cardiology. Patient verbalized understanding. Please note the above document was generated using voice recognition software. It may contain grammatical, syntax or spelling errors. Any formal questions or concerns about the content, text or information contained within the body of this dictation should be directly addressed to the provider for clarification Total Time Total Time Spent Total Time Spent (In Minutes): 45 Total Time Includes: Examination of the Patient, Discharge Planning, Medication Reconciliation, Communication With Other Providers and Other Discharge Plan Discharge Items Patient Disposition: Home - Self-Care Reason For Visit: hypertensive urgency Discharge Diagnosis: Hypertensive urgency Activity: Resume your previous activity Non-emergency contact: Primary Care Provider Call non-emergency contact if: you have any medication questions Follow-up/Referrals: Saroj Young DO [Manager Diabetes] - (Date & Time 12/03/2023 1:00 PM Provider Saroj Young DO Department Cardiology, [facility] ) Alva Barnard DO [Outside Practitioners] - (Date & Time 11/24/2023 1:20 PM Provider Alva Barnard DO Department Family Practice [facility] ) Diet: Regular Addtl Attending Provider Instructions: You were admitted to the hospital with high blood pressure. Your evaluated by cardiology during the hospitalization. You are prescribed following medication to be taken at home: 1) Telmisartan 20mg once a day. 2) Amlodipine 2.5mg once a day. 2) Spironolactone 12.5 mg once a day. Please continue to measure home blood pressure. The doses should be adjusted based on the response. You will have a primary care and cardiology follow-up set up for you. Discussed regarding remote home blood pressure monitoring with your primary care doctor. Pending Studies at Discharge: No Stand-Alone Forms: My [facility], Smoking Cessation Medications and DC Order Prescriptions: New spironolactone 25 mg Tablet 12.5 mg PO DAILY Qty: 30 0RF telmisartan 20 mg tablet 20 mg PO DAILY Qty: 30 0RF amlodipine 2.5 mg tablet 2.5 mg PO DAILY Qty: 30 0RF Continued multivitamin Tablet 1 tab PO DAILY omega-3 fatty acids 1,000 mg Capsule 0 mg PO DAILY liothyronine 25 mcg Tablet 20 mcg PO DAILY Rx Instructions: Patient stares she thinks it is 20 mcg potassium chloride [Klor-Con] 20 mEq packet 20 meq PO MOWEFR Hold Instructions: Hold taking until further instructions from your primary care physician vitamin B complex Tablet 1 tab PO DAILY spironolactone 25 mg Tablet 12.5 mg PO DAILY Qty: 30 0RF Rx Instructions: not taking fluticasone propionate 50 mcg/actuation [place],Suspension 1 spray NA DAILY Qty: 0 0RF Saline Mist 0.65 % Aerosol,[place] 2 spray NA TID PRNQty: 0 0RF Discontinued losartan 100 mg tablet 100 mg PO QAM Qty: 30 0RF Rx Instructions: not taking nifedipine 60 mg tablet extended release 60 mg PO QAM Qty: 30 0RF Rx Instructions: not taking Discharge Orders: Discharge Order (Routine); Ordered 11/17/23 Ordered By: Randolph Red/Other Patient Handouts: Understanding High Blood Pressure Admission Data Admit Date/Time: 11/15/23 12:06 Attending Provider: Randolph Robb Admit Provider: Penelope Munoz Primary Care Provider: PCP,NO Other Providers: Penelope Munoz; Marbella Amin Other Interventions: Discharge Summary Assessment (RN) Last Done: 11/17/23 10:37
== END 2023-11-17 12:03 | disposition home or self-care (01) | DRG 305 ==
LOC: ED 09:54 → EDINP 12:06 → SUATTDRO 12:06 → 2E 13:38